=== PATIENT | female | born 1930 | race Caucasian/White ===

== ENCOUNTER 2017-04-19 06:32 | Inpatient (IN) ==
[2017-04-19 08:40] LABS: Basophils # 0.1 10*3/uL (0.0-0.2); Basophils % 0.5 % (0.0-0.8); Eosinophils # 0.2 10*3/uL (0.0-0.87); Eosinophils % 2.1 % (0.00-10.9); Hematocrit 29.6 VOL% (35.7-47.0); Hemoglobin 10.1 GM/DL (12.0-16.0); Immature Granulocytes % 0.4 %; Immature Granulocytes Absolute 0.04 #; Lymphocytes # 2.7 10*3/uL (1.4-4.0); Lymphocytes % 27.8 % (21.3-54.2); Mean Corpuscular HGB Conc 34.1 GM/DL (32-36); Mean Corpuscular Hemoglobin 32 PG (27-34); Mean Corpuscular Volume 94.9 FL (87-102); Mean Platelet Volume 9.3 FL (9.6-12.0); Monocytes # 0.7 10*3/uL (0.11-0.8); Monocytes % 7.5 % (1.7-12.7); Neutrophils # 5.9 10*3/uL (1.4-7.4); Neutrophils % 61.7 % (38.7-73.9); Platelet Count 259 T/CUMM (130-400); Red Blood Count 3.12 MC/CUMM (3.8-5.5); Red Cell Distribution Width 12.4 % (9.3-17.3); White Blood Count 9.6 T/CUMM (4-12)
[2017-04-19] MEDS ORDERED: ceFAZolin 1,000 MG VIAL ONE (08:52)
[2017-04-19] MEDS ORDERED: SODIUM CHLORIDE 0.9% 100 ML IV ONE (08:52)
[2017-04-19 09:16] LABS: Osmolality,Calculated 282.5 MOS/KG (273-304); Potassium 5.8 MMOL/L (3.5-5.1)
--- NOTE | 2017-04-19 09:16 | General Surg History&Physical ---
Assessment and Plan (1) Breast cancer Status: Acute Assessment and plan: Impression: Multicentric breast cancer Plan: Proceed with left mastectomy and sentinel lymph node biopsy and axillary dissection if needed today. Dr. White has cleared her from a pulmonary standpoint. He will follow after the surgery. Current Visit: Yes History of Present Illness Chief complaint: Breast cancer History of present illness: Ms. Taylor is a 86 year old female with multicentric left breast cancer who is scheduled for left mastectomy with sentinel lymph node biopsy and possible axillary dissection. Her case was canceled because of pneumonia. She is undergone antibiotics administered by Dr. White and he has optimized her and is okay with proceeding with surgery. Other than weakness she has no complaints. She states that from a pulmonary standpoint she feels better. Home Medications Medication Instructions Recorded Confirmed Type Aspirin EC Tab 81 mg PO DAILY tablet 04/10/15 04/19/17 Rx Pyridoxine Tab [Vitamin B6 Tab] 100 mg PO DAILY tablet 04/10/15 04/19/17 Rx Theophylline ER Tab 150 mg PO DAILY tablet 04/10/15 04/19/17 Rx Amoxicillin/Potassium Clav [Amox 1 each PO DIRECTED 03/15/17 04/19/17 History Tr-K Clv 500-125 mg Tab] Azithromycin Tab [Zithromax Tab] 250 mg PO DIRECTED 03/15/17 04/19/17 History Cholecalciferol [Vitamin D3] 1,000 unit PO DIRECTED 03/15/17 04/19/17 History Ciprofloxacin Tab [Cipro Tab] 500 mg PO DIRECTED 03/15/17 04/19/17 History Clindamycin Cap [Cleocin Cap] 300 mg PO DIRECTED 03/15/17 04/19/17 History Doxycycline Hyclate 100 mg PO DIRECTED 03/15/17 04/19/17 History Esomeprazole Magnesium [Nexium] 40 mg PO DAILY 03/15/17 04/19/17 History Levofloxacin Tab [Levaquin Tab] 500 mg PO DIRECTED 03/15/17 04/17/17 History Levothyroxine Tab [Synthroid Tab] 0.1 mcg PO DAILY@0700 03/15/17 04/19/17 History Sulfameth/Trimeth 800-160 Tab 1 tablet PO DIRECTED 03/15/17 04/19/17 History [Bactrim DS Tab] Isoniazid 300 mg PO DAILY 04/17/17 04/19/17 History Rifampin Cap [Rifadin Cap] 300 mg PO DAILY 04/17/17 04/19/17 History Allergies Allergy/AdvReac Type Severity Reaction Status Date / Time codeine Allergy Mild Vomiting Verified 04/19/17 08:29 Medical,Surgical,& Family Hx - Medical History Cardio: No history of: Cardiac Dysrhythmia, Cerebrovascular Disease, CHF, Hypertension, AR, Valvular Heart Disease Neurology: History of: Migraine No history of: Seizures HEENT: History of: Eye Problem Endocrine: History of: Thyroid Disorder Comment Only: Endocrine Problems (medication) Rheumatology: No history of;: Fibromyalgia, Gout Respiratory: History of: Bronchitis (Bronchiectasis-On Maintance Antibiotics), COPD, Pneumonia, 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) Genitourinary: No history of: Kidney Stones Gastrointestinal: History of: GERD (medication) Musculoskeletal: History of: Back/Neck Problems, Musculoskeletal Problems ( right shoulder surgery) No history of: Herniated Disk Hematology: History of: Anemia No history of: Blood Transfusion Reaction Reproductive: History of: Breast Cancer Other: No history of: Anesthesia Reactions - Surgical History Cardiac Surgeries: Patient Denies: Cardiac Catheterization Thoracic Surgeries: Patient denies;: Organ Transplant HEENT Surgeries: Surgical HX of: Eye Surgery (cataract surgery) Patient denies: Thyroid Surgery Abdominal Surgeries: Patient denies: Abdominal Surgery, Colonoscopy Reproductive Surgeries: Surgical HX of;: Breast Surgery (right breast biopsy two years ago;04/18/17 Sched for Lt Radical Mastectomy), Hysterectomy - Family History Family History: Reports;: Family Cancer (sister-breast), Family Diabetes (sister ), Family Heart Disease (brother) - Social History Smoking Status: Never smoker Frequency of Alcohol Use: None Type of Drug Use: None Exam - Constitutional General appearance: no acute distress - Neck Neck exam: Present: normal inspection - Respiratory Respiratory exam: Present: clear to auscultation bilaterally - Cardiovascular Cardiovascular exam: Present: RRR - Breasts Breasts: other (No mass appreciated, no lymphadenopathy appreciated) - Extremities Exam Extremities exam: Present: normal inspection - Neurological Exam Neurological exam: Present: alert, oriented X3 Speech: Present: normal - Skin Skin exam: Present: normal color Results - Labs CBC & BMP: 04/19/17 08:26 Lab Results: I have reviewed the past 24 hour labs
[2017-04-19] MEDS ORDERED: DIAZEPAM 5 MG TABLET PO ONE (09:21)
[2017-04-19] MEDS ORDERED: PANTOPRAZOLE 40 MG TABLET PO ONE ×2 (09:21→10:21)
[2017-04-19] MEDS ORDERED: ALBUTEROL 2.5 MG/3 ML NEB RESP TX ONE (09:21)
[2017-04-19] MEDS ORDERED: LACTATED RINGERS 1,000 ML IV SCH (09:30)
--- NOTE | 2017-04-19 10:20 | Nuclear Medicine Report ---
Nuclear medicine sentinel node injection Indication: Breast cancer Findings: The patient was injected with 500 uCi of 99 M technetium sulfur colloid ultrafiltered in 4 divided doses around the left nipple. There is faint increased activity in the left axilla at 30 minutes with focal increasing activity in this area at 2 hours. No other areas of the increased activity were identified on the examination. Impression: Left axillary ben uptake as described above. PROCEDURE INTERPRETED AT [facility] DEPARTMENT OF RADIOLOGY Final Report Signed by: Dr. Mihir Agosto
[2017-04-19] MEDS ORDERED: DIAZEPAM 5 MG TABLET ONE (10:21)
[2017-04-19] MEDS ORDERED: ISOSULFAN BLUE 5 ML VIAL SUBCUT ONE (11:31)
[2017-04-19] MEDS ORDERED: NEOSTIGMINE 10 MG/10 ML VIAL ONE (11:55)
[2017-04-19] MEDS ORDERED: PROPOFOL 200 MG/20 ML VIAL IV ONE (11:55)
[2017-04-19] MEDS ORDERED: KETOROLAC 30 MG/1 ML VIAL ONE (11:55)
[2017-04-19] MEDS ORDERED: ONDANSETRON 4 MG/2 ML VIAL ONE (11:55)
[2017-04-19] MEDS ORDERED: PHENYLEPHRINE 50 MG/5 ML VIAL ONE (11:55)
[2017-04-19] MEDS ORDERED: DEXAMETHASONE 10 MG/1 ML VIAL ONE (11:55)
[2017-04-19] MEDS ORDERED: GLYCOPYRROLATE 0.4 MG/2 ML VIAL ONE (11:55)
[2017-04-19] MEDS ORDERED: LIDOCAINE 1% 5 ML VIAL ONE (11:55)
[2017-04-19] MEDS ORDERED: ROCURONIUM 100 MG/10 ML VIAL IV ONE (11:55)
[2017-04-19] MEDS ORDERED: MEPERIDINE 25 MG/1 ML VIAL IV PRN (13:26)
[2017-04-19] MEDS ORDERED: ACETAMINOPHEN 325 MG TABLET PO PRN (13:26)
[2017-04-19] MEDS ORDERED: ONDANSETRON 4 MG/2 ML VIAL IV PRN ×2 (13:26→13:54)
[2017-04-19] MEDS ORDERED: BISACODYL 5 MG TABLET PO PRN (13:26)
--- NOTE | 2017-04-19 13:42 | Anesthesia Post-Op ---
Anesthesia Post OP - Post Ansesthetic Evaluation Patient seen in post op: Yes Resp: within normal limits CV: within normal limits Mental: within normal limits Temp: within normal limits [id number]: within normal limits Nausea and Vomiting: within normal limits Pain: within normal limits
--- NOTE | 2017-04-19 13:43 | Operative Note ---
Date of procedure: 04/19/17 Pre-op diagnosis: Multicentric left breast cancer Post-op diagnosis: same Procedure: Procedure performed: #1 left simple mastectomy #2 sentinel lymph node biopsy #3 mapping of sentinel lymph nodes Procedure in detail: After informed consent was obtained, patient was taken operating suite and laid supine on the operating table. After general anesthesia was induced the left chest breast and axilla were prepped and draped in usual sterile fashion. After procedural pause, 2 cc of blue dye were administered in the sub-dermal layer at the nipple areolar complex and a mastectomy incision was made. A tunneled to the left axilla. Using the [employer] Live counter identified 2 nodes. Both were stained blue. Nodes were excised. They were sent to pathology for frozen sectioning. The residual counts were negligible of the left axilla. Next the superior and inferior flaps were created. The left breast was then dissected off the chest wall from medial to lateral. The entire left breast was removed and sent to pathology. Wounds were thoroughly irrigated and suctioned. Hemostasis obtained with spot electrocautery. The 2 lymph nodes were negative on frozen section. Tisseel was then applied to the axillary wound. 10 [place] drains were then placed in the wound bed and brought out through separate incisions and secured in place with 2-0 silk suture. The deep dermal layer was reapproximated using 2 -0 Vicryl suture. Incision closed with ever. Skin flaps looked healthy and viable. There is no areas of duskiness. There is excellent hemostasis. Sterile dressings applied. The patient was extubated and taken recovery room in stable condition. All lap and needle counts correct in the case. Anesthesia: SANTOS Surgeon / Physician: Yong Juarez Cabinet Builder: José Miguel Carney Estimated blood loss: other (Less than 100 cc) Specimens: other (Left breast, sentinel lymph node 2) Condition: stable Disposition: PACU Results - Labs CBC & BMP: 04/19/17 08:26 04/19/17 08:26 Discharge Plan - Discharge Medications No Action Aspirin EC Tab 81 mg PO DAILY tablet Theophylline ER Tab 150 mg PO DAILY tablet Pyridoxine Tab [Vitamin B6 Tab] 100 mg PO DAILY tablet Sulfameth/Trimeth 800-160 Tab [Bactrim DS Tab] 1 tablet PO DIRECTED Azithromycin Tab [Zithromax Tab] 250 mg PO DIRECTED Clindamycin Cap [Cleocin Cap] 300 mg PO DIRECTED Ciprofloxacin Tab [Cipro Tab] 500 mg PO DIRECTED Amoxicillin/Potassium Clav [Amox Tr-K Clv 500-125 mg Tab] 1 each PO DIRECTED Doxycycline Hyclate 100 mg PO DIRECTED Esomeprazole Magnesium [Nexium] 40 mg PO DAILY Cholecalciferol [Vitamin D3] 1,000 unit PO DIRECTED Levothyroxine Tab [Synthroid Tab] 0.1 mcg PO DAILY@0700 Levofloxacin Tab [Levaquin Tab] 500 mg PO DIRECTED Rifampin Cap [Rifadin Cap] 300 mg PO DAILY Isoniazid 300 mg PO DAILY - Follow Up or Referral - Forms/Instructions
[2017-04-19] MEDS ORDERED: SEVOFLURANE 1 UNIT/15 MINUTE INH ONE (13:44)
[2017-04-19] MEDS ORDERED: fentaNYL 100 MCG/2 ML VIAL ONE (13:45)
[2017-04-19] MEDS ORDERED: ACETAMINOPHEN 1,000 MG/100 ML VIAL IV ONE (13:45)
[2017-04-19] MEDS ORDERED: CHOLECALCIFEROL 1,000 UNIT TABLET PO PRN (14:00)
[2017-04-19] MEDS: HYDROmorphone 2 MG/1 ML VIAL IV PRN ×4 (14:00→14:15)
[2017-04-19] MEDS: LACTATED RINGERS 1,000 ML IV SCH (14:59)
[2017-04-19] MEDS: ISONIAZID 300 MG TABLET PO SCH (16:11)
[2017-04-19] MEDS: THEOPHYLLINE ER 300 MG TABLET PO SCH (16:11)
[2017-04-19] MEDS: PYRIDOXINE 100 MG TABLET PO SCH (16:11)
[2017-04-19] MEDS: ASPIRIN EC 81 MG TABLET PO SCH (16:11)
[2017-04-19] MEDS: diphenhydrAMINE 25 MG/10 ML UDCUP PO PRN (16:48)
[2017-04-19] MEDS: MEPERIDINE 50 MG TABLET PO PRN (18:24)
--- NOTE | 2017-04-19 18:53 | Pulmonology Progress Note ---
Pulmonary - PN: Subj Interval history: This 86-year-old white female who is postop breast surgery. She is seen along with her normal daughter who is a retired nurse. Patient's doing well. She ate a good supper without any problems. She has no nausea. Her breathing has done surprisingly well. Past history. Chronic bronchiectasis with chronic sputum production. Recent E. coli pneumonia. 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 Asthma. Long history of iron deficiency. Hypothyroidism. Recent diagnosis of breast cancer. Physical exam. Vital signs. See below General. No distress. Comfortable. Psychiatric. Oriented 3 Neurologic. Cranial nerves are intact. Long track motor functions intact Chest. Clear no wheezing. Heart. Regular. No gallop Abdomen. Nontender. Positive bowel sounds Lower extremities. Nothing to suggest deep venous thrombophlebitis Neck. Symmetrical. No meningismus. Face. Symmetrical. No edema of the lips or tongue. The remainder the physical exam is noncontributory. Plan. 1. As per Dr. Ashraf 2. Home medicines have been continued. 3. Inhalation therapy 4 times a day and as needed Exam (Progress Note) - Constitutional Vitals: Period Temp Pulse Resp BP Sys/Craft Pulse Ox Last 24 Hr 97.5 F-98.5 F 60-99 12-24 106-155/39-61 93-100 Results - Labs CBC & BMP: 04/19/17 08:26 04/19/17 08:26
[2017-04-19] MEDS: ALBUTEROL/IPRATROPIUM 3 ML NEB RESP TX SCH (19:45)
[2017-04-19] MEDS: ceFAZolin 2,000 MG in PREMIX 1 EACH IV SCH (21:03)
[2017-04-20] MEDS: ALBUTEROL/IPRATROPIUM 3 ML NEB RESP TX SCH ×4 (01:35→20:12)
[2017-04-20] MEDS: LACTATED RINGERS 1,000 ML IV SCH ×2 (02:14→20:56)
[2017-04-20 05:41] LABS: Basophils % 0.3 % (0.0-0.8); Eosinophils % 0.3 % (0.00-10.9); Immature Granulocytes % 0.5 %; Immature Granulocytes Absolute 0.06 #; Lymphocytes # 2.4 10*3/uL (1.4-4.0); Mean Corpuscular HGB Conc 33.3 GM/DL (32-36); Mean Corpuscular Hemoglobin 32 PG (27-34); Mean Corpuscular Volume 96.4 FL (87-102); Mean Platelet Volume 9.6 FL (9.6-12.0); Monocytes % 8.6 % (1.7-12.7); Neutrophils % 69.3 % (38.7-73.9); Platelet Count 221 T/CUMM (130-400); Red Cell Distribution Width 12.4 % (9.3-17.3); White Blood Count 11.6 T/CUMM (4-12)
[2017-04-20] MEDS: ceFAZolin 2,000 MG in PREMIX 1 EACH IV SCH (05:49)
[2017-04-20 06:11] LABS: Calcium 8.2 MG/DL (8.5-10.1); Osmolality,Calculated 279.7 MOS/KG (273-304); Potassium 5.8 MMOL/L (3.5-5.1); Red Blood Count 2.49 MC/CUMM (3.8-5.5)
--- NOTE | 2017-04-20 08:01 | XRay Report ---
Portable chest Date: 04/20/2017 Clinical history: Pneumonia Comparison: 03/21/2017 Technique: Portable AP sitting chest Findings: The heart is borderline in size. Interval left chest surgery with surgical drain. Reduced parenchymal findings at the lung bases. Skinfolds limit the exam. Stable mediastinum and osseous structures. Impression: COPD with chronic scarring. Interval left breast surgery with surgical drain. Reduced atelectasis/infiltration at the lung bases with underlying chronic scarring/bronchiectasis. PROCEDURE INTERPRETED AT [facility] DEPARTMENT OF RADIOLOGY Final Report Signed by: Dr. Candy Calderon
[2017-04-20] MEDS: LEVOTHYROXINE 100 MCG TABLET PO SCH (08:59)
[2017-04-20] MEDS: PANTOPRAZOLE 40 MG TABLET PO SCH (08:59)
[2017-04-20] MEDS: ASPIRIN EC 81 MG TABLET PO SCH (08:59)
[2017-04-20] MEDS: THEOPHYLLINE ER 300 MG TABLET PO SCH (09:00)
[2017-04-20] MEDS: PYRIDOXINE 100 MG TABLET PO SCH (09:01)
[2017-04-20] MEDS: ISONIAZID 300 MG TABLET PO SCH (09:01)
[2017-04-20] MEDS ORDERED: SODIUM CHLORIDE 0.9% 250 ML IV PRN (10:32)
--- NOTE | 2017-04-20 10:59 | Pulmonology Progress Note ---
Pulmonary - PN: Subj Interval history: This 86-year-old white female who is postop breast surgery. She is seen along with her normal daughter who is a retired nurse. Patient's doing well. She ate a good supper without any problems. She has no nausea. Her breathing has done surprisingly well. Past history. Chronic bronchiectasis with chronic sputum production. Recent E. coli pneumonia. 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 Asthma. Long history of iron deficiency. Hypothyroidism. Recent diagnosis of breast cancer. 04/20/2017. Patient's H&H is dropped 8.0/24.0. I will transfuse her with 1 unit of packed red blood cells today. Her potassium is running at 3.8 and there appears to be no reason. Her creatinine is a little higher than usual at 1.70 with a BUN of 29. I agree with fluids. Patient is a little week and has not colic recovered from her surgery today. On physical exam she appears to be fine. She was seen along with her daughter and along with Shilo Serrano nurse practitioner. Physical exam. Vital signs. See below General. No distress. Comfortable. Psychiatric. Oriented 3 Neurologic. Cranial nerves are intact. Long track motor functions intact Chest. Clear no wheezing. Heart. Regular. No gallop Abdomen. Nontender. Positive bowel sounds Lower extremities. Nothing to suggest deep venous thrombophlebitis Neck. Symmetrical. No meningismus. Face. Symmetrical. No edema of the lips or tongue. The remainder the physical exam is noncontributory. Plan. 04/19/[address] Ashraf 2. Home medicines have been continued. 3. Inhalation therapy 4 times a day and as needed 04/20/2017. 1. Transfuse 1 unit of blood 2. Follow-up lab. Exam (Progress Note) - Constitutional Vitals: Period Temp Pulse Resp BP Sys/Craft Pulse Ox Last 24 Hr 96.7 F-99.0 F 60-99 12-24 106-155/39-61 93-100 Results - Labs CBC & BMP: 04/20/17 04:55 04/20/17 04:55
[2017-04-20] MEDS: MEPERIDINE 50 MG TABLET PO PRN ×2 (11:27→19:43)
--- NOTE | 2017-04-20 12:29 | Event Note ---
Afebrile vital signs stable. Patient is doing very well. YOSELIN drains have minimal serosanguineous fluid. The wound examined and there is no hematoma or bleeding. The skin flaps look good with no necrosis and the incision appears to be healing well there is no evidence of erythema. We will continue supportive care. Dr. White is following. Will get PT and OT to evaluate and treat. Discussed range of motion exercises with her. She should be ready for discharge when okay with Dr. White.
[2017-04-20 20:49] LABS: Hematocrit 26.3 VOL% (35.7-47.0)
[2017-04-20] MEDS: diphenhydrAMINE 25 MG/10 ML UDCUP PO PRN (23:43)
[2017-04-21] MEDS: ALBUTEROL/IPRATROPIUM 3 ML NEB RESP TX SCH ×4 (01:30→20:11)
[2017-04-21 05:18] LABS: Basophils % 0.3 % (0.0-0.8); Eosinophils # 0.2 10*3/uL (0.0-0.87); Eosinophils % 2.4 % (0.00-10.9); Hematocrit 26.6 VOL% (35.7-47.0); Immature Granulocytes % 0.6 %; Immature Granulocytes Absolute 0.05 #; Lymphocytes # 2.7 10*3/uL (1.4-4.0); Lymphocytes % 29.7 % (21.3-54.2); Mean Corpuscular HGB Conc 33.8 GM/DL (32-36); Mean Corpuscular Hemoglobin 32 PG (27-34); Mean Corpuscular Volume 95.3 FL (87-102); Mean Platelet Volume 9.4 FL (9.6-12.0); Monocytes # 0.8 10*3/uL (0.11-0.8); Monocytes % 9.4 % (1.7-12.7); Neutrophils # 5.2 10*3/uL (1.4-7.4); Neutrophils % 57.6 % (38.7-73.9); Platelet Count 192 T/CUMM (130-400); Red Blood Count 2.79 MC/CUMM (3.8-5.5); Red Cell Distribution Width 13.5 % (9.3-17.3)
[2017-04-21 05:54] LABS: Calcium 8.4 MG/DL (8.5-10.1); Osmolality,Calculated 283.3 MOS/KG (273-304); Potassium 5.8 MMOL/L (3.5-5.1)
[2017-04-21] MEDS: LEVOTHYROXINE 100 MCG TABLET PO SCH (07:23)
--- NOTE | 2017-04-21 09:13 | Event Note ---
Status post mastectomy. Afebrile vital signs stable. H&H stable. Mastectomy site looks great. YOSELIN drains with moderate serosanguineous output. There is no hematoma or bleeding. Flaps look good and the incision appears to be healing well with no sign of infection. She had some preoperative deconditioning related to persistent pneumonia. Physical therapy has been consulted. Also consulted occupational therapy to teach range of motion exercises. Plan: From a surgical standpoint she is ready for discharge once okay with PT OT and Dr. Carreon. We will continue her YOSELIN drains in each YOSELIN drain care. She will follow-up with me approximately 1 week after discharge for drain removal.
--- NOTE | 2017-04-21 09:19 | Physician Query Form ---
CLICK EDIT DOCUMENT TO SELECT QUERY ANSWER --> OK --> SIGN Ruchi Miller RN, CCDS Certified Clinical Linotyper W) [phone] (f) [phone] [email or web address] PROVIDERS: Make your selection(s) from the choices in EACH section by typing an "x" and enter comments in the comment section. Please use your independent medical judgment in providing your response. This request does not imply that any particular answer is desired or expected. CLINICAL INDICATORS: (Providers should not edit this section) The medical record indicates that the patient had a left mastectomy, "H&H is dropped 8.0/24.0" and patient was given one unit of blood. Estimated blood loss: other (Less than 100 cc) Based on the above, could you clarify which of the following conditions you are evaluating, treating, and/or monitoring? ( ) Blood loss anemia ( ) acute ( ) chronic ( ) acute on chronic ( ) Acute blood loss anemia on baseline chronic anemia ( ) Acute blood loss anemia as a complication of a procedure ( ) Iron deficiency anemia not associated with blood loss ( ) Dilutional anemia due to IV fluids ( ) Anemia due to chemotherapy ( ) Anemia due to neoplastic disease ( ) Anemia due to chronic kidney disease ( ) Pernicious anemia ( ) Aplastic anemia ( ) Hemolytic anemia ( ) immune ( ) non-immune - please specify cause: ( ) Anemia due to other condition, please specify: ( ) Clinically unable to determine COMMENTS: PLEASE ALSO DOCUMENT RESPONSE IN PROGRESS NOTES AND/OR DISCHARGE SUMMARY Use of terms such as suspected, likely, or probable (associated with a specific diagnosis that is being evaluated, monitored, or treated as if it exists) are acceptable and can be restated in the discharge summary if not ruled out. MTDD
[2017-04-21] MEDS: ASPIRIN EC 81 MG TABLET PO SCH (09:25)
[2017-04-21] MEDS: PYRIDOXINE 100 MG TABLET PO SCH (09:25)
[2017-04-21] MEDS: PANTOPRAZOLE 40 MG TABLET PO SCH (09:25)
[2017-04-21] MEDS: THEOPHYLLINE ER 300 MG TABLET PO SCH (09:25)
[2017-04-21] MEDS: ISONIAZID 300 MG TABLET PO SCH (09:25)
[2017-04-21] MEDS: LACTATED RINGERS 1,000 ML IV SCH ×2 (09:48→21:56)
--- NOTE | 2017-04-21 10:58 | Pulmonology Progress Note ---
Pulmonary - PN: Subj Interval history: This 86-year-old white female who is postop breast surgery. She is seen along with her normal daughter who is a retired nurse. Patient's doing well. She ate a good supper without any problems. She has no nausea. Her breathing has done surprisingly well. Past history. Chronic bronchiectasis with chronic sputum production. Recent E. coli pneumonia. 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 Asthma. Long history of iron deficiency. Hypothyroidism. Recent diagnosis of breast cancer. 04/20/2017. Patient's H&H is dropped 8.0/24.0. I will transfuse her with 1 unit of packed red blood cells today. Her potassium is running at 3.8 and there appears to be no reason. Her creatinine is a little higher than usual at 1.70 with a BUN of 29. I agree with fluids. Patient is a little week and has not colic recovered from her surgery today. On physical exam she appears to be fine. She was seen along with her daughter and along with Shilo Serrano nurse practitioner 04/21/2017. Patient was seen today along with her daughter who is a retired nurse and along with Shilo Serrano nurse practitioner. Patient says she is too weak to get out bed by herself. Yesterday we consulted physical therapy and occupational therapy. Early in the morning the patient had a hematocrit of 24 and we transfused her to a hematocrit of 29. I was told the hematocrit of 24 was too low to be seen by the physical therapy or occupational therapy. Also I was told it was too low for her to be put up in a chair by the nursing staff. I have consulted social service to help with placement of this patient. She had bilateral pneumonia prior to this admission and went through appropriate length of time for recovery she was still somewhat weak before her surgery and it may be that the anesthesia slow to wear off of her. I think she could benefit from rehab or from a swing bed. She is from [place].. Her potassium does tend to run a little high at 5.8. I have no idea why. Will check CPK just to make sure muscle injury is not playing a part. Her creatinine is fallen from 1.70-1.30 BUN is 23. I suspect potassium will follow. This admission the patient had breast surgery for breast cancer, frozen section lymph nodes were negative. Final path is pending. Down the road the patient will need an oncology consultation. Physical exam. Vital signs. See below General. No distress. Comfortable. Complains of being weak and unable to get from her bed to the bathroom Psychiatric. Oriented 3 Neurologic. Cranial nerves are intact. Long track motor functions intact Chest. Clear no wheezing. Heart. Regular. No gallop Abdomen. Nontender. Positive bowel sounds Lower extremities. Nothing to suggest deep venous thrombophlebitis Neck. Symmetrical. No meningismus. Face. Symmetrical. No edema of the lips or tongue. The remainder the physical exam is noncontributory. Plan. 04/19/[address] Ashraf 2. Home medicines have been continued. 3. Inhalation therapy 4 times a day and as needed 04/20/2017. 1. Transfuse 1 unit of blood 2. Follow-up lab. 04/21/2017. 1. Check CPK 2. Follow-up on BMP. Potassium is been 5.8. Creatinine is dropped back to his usual level suspect potassium will follow 3. Physical therapy and Occupational Therapy consults are pending 4. Hope the patient can get up in the chair today 5. Consult forensic social worker. This patient is a candidate for rehab and also a candidate for swing bed. She lives in [place]. 6. Today's note above Exam (Progress Note) - Constitutional Vitals: Period Temp Pulse Resp BP Sys/Craft Pulse Ox Last 24 Hr 97.7 F-99.2 F 88-119 17-20 126-158/54-66 92-99 Results - Labs CBC & BMP: 04/21/17 04:47 04/21/17 04:47
--- NOTE | 2017-04-21 12:35 | Physician Query Form ---
CLICK EDIT DOCUMENT TO SELECT QUERY ANSWER --> OK --> SIGN Ruchi Miller RN, CCDS Certified Clinical Agile Test Lead W) [phone] (f) [phone] [email or web address] PROVIDERS: Make your selection(s) from the choices in EACH section by typing an "x" and enter comments in the comment section. Please use your independent medical judgment in providing your response. This request does not imply that any particular answer is desired or expected. CLINICAL INDICATORS: (Providers should not edit this section) The medical record indicates that the patient had a left mastectomy, "H&H is dropped 8.0/24.0" and patient was given one unit of blood. Estimated blood loss: other (Less than 100 cc) Based on the above, could you clarify which of the following conditions you are evaluating, treating, and/or monitoring? ( ) Blood loss anemia ( ) acute ( ) chronic ( ) acute on chronic ( ) Acute blood loss anemia on baseline chronic anemia ( ) Acute blood loss anemia as a complication of a procedure ( ) Iron deficiency anemia not associated with blood loss ( ) Dilutional anemia due to IV fluids ( ) Anemia due to chemotherapy ( x) Anemia due to neoplastic disease ( ) Anemia due to chronic kidney disease ( ) Pernicious anemia ( ) Aplastic anemia ( ) Hemolytic anemia ( ) immune ( ) non-immune - please specify cause: ( ) Anemia due to other condition, please specify: ( ) Clinically unable to determine COMMENTS: PLEASE ALSO DOCUMENT RESPONSE IN PROGRESS NOTES AND/OR DISCHARGE SUMMARY Use of terms such as suspected, likely, or probable (associated with a specific diagnosis that is being evaluated, monitored, or treated as if it exists) are acceptable and can be restated in the discharge summary if not ruled out. MTDD
[2017-04-21] MEDS: MEPERIDINE 50 MG TABLET PO PRN (14:29)
[2017-04-22] MEDS: diphenhydrAMINE 25 MG/10 ML UDCUP PO PRN (01:11)
[2017-04-22] MEDS: ALBUTEROL/IPRATROPIUM 3 ML NEB RESP TX SCH ×4 (01:19→19:43)
[2017-04-22 02:54] LABS: Calcium 8.5 MG/DL (8.5-10.1); Magnesium 1.8 MG/DL (1.8-2.4); Osmolality,Calculated 280.4 MOS/KG (273-304); Potassium 5.3 MMOL/L (3.5-5.1)
[2017-04-22] MEDS: LEVOTHYROXINE 100 MCG TABLET PO SCH (06:19)
--- NOTE | 2017-04-22 09:10 | Event Note ---
04/22/2017. Patient status post left mastectomy and incision looks clean and dry with no swelling or hematoma formation. YOSELIN drainage is slowly decreasing at this time. She has some discomfort but that is probably related from the pulling of the YOSELIN drain since her hanging freely down. Generally she looks good vital sign sequeira her hematocrit was a little bit low postop what we will check that tomorrow.
--- NOTE | 2017-04-22 09:28 | Pulmonology Progress Note ---
Pulmonary - PN: Subj Interval history: This 86-year-old lady came in cancer surgery. She had pneumonia a month or so ago. She remains fairly weak is only able to walk in the room. 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 I wonder if this might need to be changed at this time. She has not had any side effects from the medications. Defer to Dr. Carreon on that one. Exam (Progress Note) - Constitutional Vitals: Period Temp Pulse Resp BP Sys/Craft Pulse Ox Last 24 Hr 97.1 F-98.3 F 75-102 16-20 122-152/60-67 94-100 Exam: She is alert oriented vital signs are normal. Pupils react to light. Throat is clear. Neck supple no bruits. Chest reveals some rhonchi in the bases. Heart normal rate and rhythm no murmurs. Left breast is bandaged. Abdomen soft nontender no masses. Extremities no clubbing cyanosis or edema. Calves nontender. Results - Labs CBC & BMP: 04/21/17 04:47 04/22/17 01:21 Lab Results: I have reviewed the past 24 hour labs Assessment and Plan (1) Bronchiectasis Status: Acute Assessment and plan: Patient has a remote history of Mycobacterium avium. Has bronchiectasis. I would suggest long-term treatment with Zithromax 3 days a week. Currently she is on INH and rifampin. Current Visit: Yes (2) Breast cancer Status: Acute Assessment and plan: Status post left mastectomy. Gradually increasing activities. Current Visit: Yes Specialty Discharge - Follow Up or Referrals Follow up with: Yong Juarez MD [Physician] -
[2017-04-22] MEDS: THEOPHYLLINE ER 300 MG TABLET PO SCH (10:36)
[2017-04-22] MEDS: PANTOPRAZOLE 40 MG TABLET PO SCH (10:36)
[2017-04-22] MEDS: ISONIAZID 300 MG TABLET PO SCH (10:37)
[2017-04-22] MEDS: PYRIDOXINE 100 MG TABLET PO SCH (10:37)
[2017-04-22] MEDS: ASPIRIN EC 81 MG TABLET PO SCH (10:38)
[2017-04-22] MEDS: LACTATED RINGERS 1,000 ML IV SCH ×2 (10:38→23:10)
[2017-04-22] MEDS: MEPERIDINE 50 MG TABLET PO PRN (23:07)
[2017-04-23] MEDS: ALBUTEROL/IPRATROPIUM 3 ML NEB RESP TX SCH ×4 (00:09→18:58)
[2017-04-23 03:19] LABS: Basophils % 0.4 % (0.0-0.8); Eosinophils # 0.3 10*3/uL (0.0-0.87); Eosinophils % 2.9 % (0.00-10.9); Hematocrit 27.7 VOL% (35.7-47.0); Hemoglobin 9.2 GM/DL (12.0-16.0); Immature Granulocytes % 0.6 %; Immature Granulocytes Absolute 0.05 #; Lymphocytes # 2.7 10*3/uL (1.4-4.0); Lymphocytes % 30.1 % (21.3-54.2); Mean Corpuscular HGB Conc 33.2 GM/DL (32-36); Mean Corpuscular Hemoglobin 32 PG (27-34); Mean Corpuscular Volume 95.8 FL (87-102); Mean Platelet Volume 9.1 FL (9.6-12.0); Monocytes # 0.8 10*3/uL (0.11-0.8); Monocytes % 8.9 % (1.7-12.7); Neutrophils # 5.2 10*3/uL (1.4-7.4); Neutrophils % 57.1 % (38.7-73.9); Platelet Count 196 T/CUMM (130-400); Red Blood Count 2.89 MC/CUMM (3.8-5.5); Red Cell Distribution Width 12.3 % (9.3-17.3); White Blood Count 9.1 T/CUMM (4-12)
[2017-04-23 03:44] LABS: Calcium 8.6 MG/DL (8.5-10.1); Magnesium 1.6 MG/DL (1.8-2.4); Osmolality,Calculated 282.3 MOS/KG (273-304); Potassium 5.1 MMOL/L (3.5-5.1)
[2017-04-23] MEDS: LEVOTHYROXINE 100 MCG TABLET PO SCH (06:12)
--- NOTE | 2017-04-23 08:51 | Pulmonology Progress Note ---
Pulmonary - PN: Subj Interval history: This 86-year-old lady came in for left breast cancer surgery. She had pneumonia a month or so ago. She remains fairly weak is only able to walk in the room. 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 I wonder if this might need to be changed at this time. She has not had any side effects from the medications. Defer to Dr. Carreon on that one. 04/23/2017 patient having some trouble sleeping. She says she does not sleep very well at home. Does not tolerate sleeping pills such as Ambien. She has done okay with Valium or Tranxene in the past. Will give her some low-dose Tranxene. No other new complaints. Exam (Progress Note) - Constitutional Vitals: Period Temp Pulse Resp BP Sys/Craft Pulse Ox Last 24 Hr 97.1 F-98.9 F 82-103 17-20 110-150/56-71 95-100 Exam: She is alert oriented vital signs are normal. Pupils react to light. Throat is clear. Neck supple no bruits. Chest reveals some rhonchi in the bases. Heart normal rate and rhythm no murmurs. Left breast is bandaged. Abdomen soft nontender no masses. Extremities no clubbing cyanosis or edema. Calves nontender. Results - Labs CBC & BMP: 04/23/17 02:04 04/23/17 02:04 Lab Results: I have reviewed the past 24 hour labs Assessment and Plan (1) Bronchiectasis Status: Acute Assessment and plan: Patient has a remote history of Mycobacterium avium. Has bronchiectasis. I would suggest long-term treatment with Zithromax 3 days a week. Currently she is on INH and rifampin. 04/23/2017 does not appear to be having any acute exacerbation of her bronchiectasis. Current Visit: Yes (2) Breast cancer Status: Acute Assessment and plan: Status post left mastectomy. Gradually increasing activities. 04/23/2017 status post left mastectomy. Not having much pain. Current Visit: Yes Specialty Discharge - Follow Up or Referrals Follow up with: Yong Juarez MD [Physician] -
[2017-04-23] MEDS ORDERED: MAGNESIUM SULF RIDER 2 GM in PREMIX 1 EACH IV PRN (09:40)
[2017-04-23] MEDS: PYRIDOXINE 100 MG TABLET PO SCH (11:03)
[2017-04-23] MEDS: PANTOPRAZOLE 40 MG TABLET PO SCH (11:03)
[2017-04-23] MEDS: THEOPHYLLINE ER 300 MG TABLET PO SCH (11:03)
[2017-04-23] MEDS: ASPIRIN EC 81 MG TABLET PO SCH (11:04)
[2017-04-23] MEDS: ISONIAZID 300 MG TABLET PO SCH (11:04)
[2017-04-23] MEDS: LACTATED RINGERS 1,000 ML IV SCH (14:41)
[2017-04-23] MEDS ORDERED: CLORAZEPATE 3.75 MG TABLET PO SCH (21:00)
[2017-04-24] MEDS: ALBUTEROL/IPRATROPIUM 3 ML NEB RESP TX SCH ×3 (00:09→13:10)
[2017-04-24 05:24] LABS: Calcium 8.7 MG/DL (8.5-10.1); Magnesium 2.2 MG/DL (1.8-2.4); Osmolality,Calculated 280.3 MOS/KG (273-304); Potassium 5.7 MMOL/L (3.5-5.1)
[2017-04-24] MEDS: LACTATED RINGERS 1,000 ML IV SCH ×2 (05:57→14:10)
[2017-04-24] MEDS: LEVOTHYROXINE 100 MCG TABLET PO SCH (06:03)
[2017-04-24] MEDS: THEOPHYLLINE ER 300 MG TABLET PO SCH (09:41)
[2017-04-24] MEDS: PANTOPRAZOLE 40 MG TABLET PO SCH (09:41)
[2017-04-24] MEDS: PYRIDOXINE 100 MG TABLET PO SCH (09:41)
[2017-04-24] MEDS: ASPIRIN EC 81 MG TABLET PO SCH (09:41)
[2017-04-24] MEDS: ISONIAZID 300 MG TABLET PO SCH (09:41)
[2017-04-24] MEDS ORDERED: RIFAMPIN 300 MG CAPSULE PO SCH (10:00)
--- NOTE | 2017-04-24 10:23 | Pulmonology Progress Note ---
Pulmonary - PN: Subj Interval history: Shilo Serrano, [facility]-, acting as scribe for Dr. Agustin Carreon Mrs. Taylro is an 86-year-old white female who underwent a left simple mastectomy on 04/19/[address] Juarez. She also had a sentinel lymph node biopsy and mapping of sentinel lymph nodes done at that time. We have been following along and medical management. Other past history includes: Chronic bronchiectasis with chronic sputum production. Recent E. coli pneumonia. 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 Asthma. Long history of iron deficiency. Hypothyroidism. Recent diagnosis of breast cancer. 04/20/2017. Patient's H&H is dropped 8.0/24.0. I will transfuse her with 1 unit of packed red blood cells today. Her potassium is running at 3.8 and there appears to be no reason. Her creatinine is a little higher than usual at 1.70 with a BUN of 29. I agree with fluids. Patient is a little week and has not colic recovered from her surgery today. On physical exam she appears to be fine. She was seen along with her daughter and along with Shilo Serrano nurse practitioner 04/21/2017. Patient was seen today along with her daughter who is a retired nurse and along with Shilo Serrano nurse practitioner. Patient says she is too weak to get out bed by herself. Yesterday we consulted physical therapy and occupational therapy. Early in the morning the patient had a hematocrit of 24 and we transfused her to a hematocrit of 29. I was told the hematocrit of 24 was too low to be seen by the physical therapy or occupational therapy. Also I was told it was too low for her to be put up in a chair by the nursing staff. I have consulted social service to help with placement of this patient. She had bilateral pneumonia prior to this admission and went through appropriate length of time for recovery she was still somewhat weak before her surgery and it may be that the anesthesia slow to wear off of her. I think she could benefit from rehab or from a swing bed. She is from [place].. Her potassium does tend to run a little high at 5.8. I have no idea why. Will check CPK just to make sure muscle injury is not playing a part. Her creatinine is fallen from 1.70-1.30 BUN is 23. I suspect potassium will follow. This admission the patient had breast surgery for breast cancer, frozen section lymph nodes were negative. Final path is pending. Down the road the patient will need an oncology consultation. 04/24/2017. The patient was seen today along with her daughter. Today the patient obviously feels better. She has been able to ambulate more easily. She is getting stronger. She feels that she will be able to go home as opposed to swing bed. Her daughter who is a retired nurse will be staying with her at her home for a while. They feel that they will be able to manage while she is there. We agree. She asked about when to restart her rifampin and we told her that this can be done today. She has bronchiectasis and has cyclic antibiotics. We suggested restarting Bactrim when she is discharged. She will follow-up with Dr. Ashraf per his recommendations. She already has a follow- up appointment scheduled with Dr. Carreon in June and she can keep this appointment. She will call our office sooner if needed. Medications have been reviewed. We have restarted her rifampin. Labs have been reviewed. Creatinine 1.00, BUN 16, sodium 141, potassium 5.7, magnesium 2.2 Exam (Progress Note) - Constitutional Vitals: Period Temp Pulse Resp BP Sys/Craft Pulse Ox Last 24 Hr 97.4 F-98.1 F 78-100 14-20 134-159/67-82 94-99 Exam: Chest is fairly clear Heart no gallop Abdomen is nontender and nondistended; bowel sounds are positive 4 Extremities with nothing to suggest acute deep venous femoral phlebitis Psychiatric oriented 3 Neurologic long-term motor function is intact Plan: The patient is stable from a medical standpoint for discharge whenever Dr. Ashraf feels it is appropriate. She can keep her June appointment that is already scheduled with Dr. Carreon. She could be seen sooner if needed and will call in the meantime. She is to restart her rifampin today. She will start Bactrim when she is discharged. In our opinion, she will no longer need swing bed placement at discharge. Results - Labs CBC & BMP: 04/23/17 02:04 04/24/17 03:55 Specialty Discharge - Follow Up or Referrals Follow up with: Yong Juarez MD [Physician] -
[2017-04-24 11:26] VITALS: BP 137/61
--- NOTE | 2017-04-24 12:24 | Discharge Summary ---
Hospital Course - Hospital Course Hospital Course: A 6-year-old white female with multicentric left breast cancer scheduled for left mastectomy with sentinel lymph node biopsy and possible axillary resection. Her case was canceled because of chronic bronchiectasis and recent E. coli and Mycobacterium avium pneumonia and she had been under Dr. Carreon's care. She was finally cleared for surgery and she was admitted on 04/19/2017 and taken to the operating room where Dr. Juarez performed a left simple mastectomy with sentinel lymph node biopsy and mapping of her sentinel lymph nodes. Dr. Carreon from pulmonary followed the patient during her hospital stay. As far as surgically, the patient has done excellent. Her incision looks good and there is no signs of bleeding. Her JPs will be taken out before her discharge. Patient was very weak due to her surgery and previous pneumonia and initially it was thought she would be transferred to swing bed. Today patient feels stronger and her daughter is a retired nurse and they both feel she can go home with home physical therapy. Pulmonary is restarting her rifampin and her Bactrim upon discharge. She has a follow-up already scheduled with Dr. White in June and she is to keep this appointment. She will follow-up with Dr. Juarez in his office in 2 weeks. She is also been instructed to keep Dean wraps compression at all times. Complete discharge instructions were given. Care coordination, chart review, and completed discharge paperwork took approximately 40 minutes. - Time spent with patient Time with patient DS: Greater than 30 minutes Specialty Discharge - Follow Up or Referrals Follow up with: Yong Juarez MD [Physician] - Agustin Carreon MD [Primary Care Provider] - (KEEP APPOINTMENT SCHEDULED IN JUNE. CALL IF NEEDED BEFORE.) Discharge Plan - Discharge Data Disposition: Home Health Service Condition at Discharge: Stable Discharge Diet: advance to your usual diet Activity: as per physical therapy Hygiene: may shower Driving: other (No driving if taking pain medications) Contact your physician if you experience:: fever over 101, Redness or swelling, Nausea/Vomiting, Shortness of breath Wound / Dressing Care Instructions: Okay to shower daily with mild soap and water, pat dry, dry ABD pad to incision, use Dean wraps for compression at all times - Discharge Medications New Meperidine Tab [Demerol Tab] 50 mg PO Q4H PRN #30 tablet PRN Reason: Pain Severe (8-10) Esomeprazole Magnesium [Nexium] 40 mg PO DAILY #30 capsule Continue Aspirin EC Tab 81 mg PO DAILY tablet Theophylline ER Tab 150 mg PO DAILY tablet Pyridoxine Tab [Vitamin B6 Tab] 100 mg PO DAILY tablet Sulfameth/Trimeth 800-160 Tab [Bactrim DS Tab] 1 tablet PO BID PRN PRN Reason: ROTATE WEEKLY Cholecalciferol [Vitamin D3] 1,000 unit PO DAILY Levothyroxine Tab [Synthroid Tab] 0.1 mcg PO DAILY@0700 Rifampin Cap [Rifadin Cap] 300 mg PO DAILY Isoniazid 300 mg PO DAILY Discontinued Azithromycin Tab [Zithromax Tab] 250 mg PO DAILY PRN PRN Reason: ROTATE WEEKLY Clindamycin Cap [Cleocin Cap] 300 mg PO BID PRN PRN Reason: ROTATE Q WEEKLY Ciprofloxacin Tab [Cipro Tab] 500 mg PO BID PRN PRN Reason: ROTATE Q WEEK Amoxicillin/Potassium Clav [Amox Tr-K Clv 500-125 mg Tab] 1 each PO BID PRN PRN Reason: ROTATE WEEKLY Doxycycline Hyclate 100 mg PO BID PRN PRN Reason: ROTATE Q WEEK Esomeprazole Magnesium [Nexium] 40 mg PO DAILY Levofloxacin Tab [Levaquin Tab] 500 mg PO DAILY PRN PRN Reason: ROTATE WEEKLY - Follow Up or Referral Follow Up: Agustin Carreon MD [Primary Care Provider] - (KEEP APPOINTMENT SCHEDULED IN JUNE. CALL IF NEEDED BEFORE.) Yong Juarez MD [Physician] - 2 Weeks - Forms/Instructions Instructions: Mastectomy (DC) Exam - Constitutional Vitals: Period Temp Pulse Resp BP Sys/Craft Pulse Ox Last 24 Hr 97.4 F-98.1 F 78-100 14-20 134-159/61-82 94-99 Discharge Results Labs on day of discharge: Labs from last 24 hours 04/24/17 03:55 Sodium 141 Potassium 5.7 H Chloride 110 H Carbon Dioxide 25 Anion Gap 11.7 BUN 16 Creatinine 1.00 GFR Calculation 48 BUN/Creatinine Ratio 16.00 Glucose 89 Calculated Osmolality 280.3 Calcium 8.7 Magnesium 2.2 DS: Provider Date of admission: 04/19/17 13:26 Primary care physician: Agustin Carreon MD Attending physician on admission: Yong Juarez MD Consults: 04/19/17 13:26 Consult to Physician [CONS] Routine Comment: seeing pt for pneumonia Consulting Provider: Agustin Carreon Consulting Provider Notified: Yes When should Consulting Provider be notified: Now Person Notified: ollie matos Date Notified: 04/19/17 Time Notified: 15:03 04/20/17 10:32 Consult to Physical Therapy [CONS] Routine Reason for Physical Therapy: Evaluate and Treat 04/20/17 10:35 Consult to Case Mgmt/Social Srvs [CONS] Routine Reason for Case Mgmt/Social Srvs: Home Health Consult Comment: YOSELIN drain care 04/20/17 12:35 OT [Consult to Occupational Therapy] [CONS] Routine Reason for Occupational Therapy: Evaluate and Treat Consult Comment: postop left mastectomy ex 04/21/17 10:12 Consult to Case Mgmt/Social Srvs [CONS] Routine Reason for Case Mgmt/Social Srvs: Discharge Planning Swingbed/SNF/Long-Term Consult Comment: [facility] Discharging clinician: DAMIAN Francis Expected date of discharge: 04/24/17
--- NOTE | 2017-04-24 17:17 | Pathology Report from [facility] ---
[facility] [place] [id number] PATIENT NAME : Cindy Taylor ORDERING DR : Yong Juarez MD CLINICAL HX: Multicentric left breast cancer POST-OP DX: Same SPECIMEN INFO: #1 [place] node #1 #2 [place] node #2 #3 Left breast GROSS DESCRIPTION: #1 CINDY TAYLOR received fresh is a 2.5 x 2.0 cm fatty fragment with a 0.5 x 0.4 cm lymph node submitted in FS1 for frozen.#2 SENTINEL NODE, CINDY TAYLOR received fresh is a 2.5 x 1.8 cm adipose fragment with a 0.7 x 0.3 cm lymph node submitted in FS2#3 CINDY TAYLOR received in formalin is a 30.5 x 14.0 x 3.0 cm left breast mastectomy with a 16.0 x 4.3 cm pink-gonzalez skin ellipse. At 11:00/UIQ is a 2.6 x 0.6 cm firm pink-white mass with a metal clip. The mass grossly comes to within 0.5 cm of the superior/superficial margin. A second 0.4 x 0.4 cm mass is present at 8:00 in the lower mid quadrant and grossly comes to within 0.8 cm of the inferior/superficial margin. A third 0.6 x 0.5 cm mass is noted within the lower outer quadrant at 4-5:00 and grossly comes to within 1.5 cm of the inferior/superficial margin. Sections : 3A nipple and skin, 3B and 3C first mass and superior/superficial margin, 3D second mass and inferior/superficial, 3E third mass and inferior/superficial margin. Note: Time in formalin is 1300 8/9. Time out of formalin is 1800 8/ 10. Fixation requirement met. DIAGNOSIS FOR CINDY TAYLOR: #1-#3 LEFT BREAST, MASTECTOMY WITH SENTINEL NODES ( Intact, 30.5 x 14 x 3 cm): HISTOLOGIC TYPE: Invasive ductal carcinoma. TUMOR SITE: LIQ, LMQ. LOQ (three lesions). TUMOR SIZE: 2.6, 0.4, 0.6 mm. (three lesions) KARINA GRADE II (tubules = 2, pleomorphism = 2, mitoses = 7 MF/ 10 HPF) TUMOR MARGINS: Margins uninvolved by carcinoma, with nearest (superior superficial) margin = 0.5 cm. TUMOR FOCALITY: Multiple foci (3 foci), measuring 4 to 26 mm. DCIS: Present, cribiform, intermediate nuclear grade, w/ o necrosis present within and surrounding tumor, 10mm in diameter, comprising 30% of tumor (EIC = present, >25%). DCIS MARGINS: Margins uninvolved by DCIS, with nearest (superior superficial) margin = 5 mm. LYMPHOVASCULAR INVASION: Not identified.. LYMPH NODES: Total lymph nodes present (sentinel & non sentinel): 2; Total sentinel nodes: 2. All lymph nodes negative for tumor (0/2). AJCC PATHOLOGIC STAGE IIA [pT2pN0(sn)]. COLLECTED DATE: 04/19/2017 [facility] REPORT DATE: 04/24/2017 ELECTRONICALLY SIGNED BY: Tobias Mckinley M.D. 04/24/2017 - 12:35:08 ABBIE
== END 2017-04-24 13:55 | disposition home health service (06) | DRG 581 ==
LOC: N.OR 06:32 → N.SDSINP 06:37 → EDSTATUS 10:30 → N.SDSINP 13:26 → N.3E 14:54
PROVIDERS: ADMIT Surgery; ATTEND Surgery

== ENCOUNTER 2018-04-09 13:13 | Inpatient (IN) ==
[2018-04-09] MEDS ORDERED: ALBUTEROL/IPRATROPIUM 3 ML NEB RESP TX PRN (13:15)
[2018-04-09] MEDS: ALBUTEROL/IPRATROPIUM 3 ML NEB RESP TX SCH ×2 (14:45→18:30)
[2018-04-09 14:54] LABS: Basophils % 0.1 % (0.0-0.8); Eosinophils % 0.2 % (0.00-10.9); Hematocrit 23.8 VOL% (35.7-47.0); Immature Granulocytes % 0.7 %; Lymphocytes # 2.2 10*3/uL (1.4-4.0); Lymphocytes % 15.3 % (21.3-54.2); Mean Corpuscular HGB Conc 33.6 GM/DL (32-36); Mean Corpuscular Hemoglobin 31 PG (27-34); Mean Corpuscular Volume 93.3 FL (87-102); Mean Platelet Volume 8.8 FL (9.6-12.0); Monocytes # 1.5 10*3/uL (0.11-0.8); Monocytes % 10.7 % (1.7-12.7); Neutrophils # 10.4 10*3/uL (1.4-7.4); Platelet Count 300 T/CUMM (130-400); Red Blood Count 2.55 MC/CUMM (3.8-5.5); Red Cell Distribution Width 13.1 % (9.3-17.3); White Blood Count 14.2 T/CUMM (4-12)
[2018-04-09 15:25] LABS: % Iron Saturation 8.6 % (18-50); Free T4 (Free Thyroxine) 1.25 NG/DL (0.76-1.46)
[2018-04-09 15:31] LABS: Albumin 2.9 G/DL (3.4-5.0); Bilirubin,Total 0.5 MG/DL (0.2-1.0); Calcium 8.6 MG/DL (8.5-10.1); Osmolality,Calculated 266.4 MOS/KG (273-304); Thyroid Stimulating Hormone 1.19 uIU/ml (0.358-3.74); Total Protein 7.6 G/DL (6.4-8.3)
[2018-04-09] MEDS: DEXTROSE 5% NACL 0.45% 1,000 ML IV SCH (16:25)
[2018-04-09] MEDS: cefTAZidime 1,000 MG in SYRINGE 1 EACH IV SCH (16:31)
[2018-04-09] MEDS: methylPREDNISolone SOD SUC 40 MG/1 ML VIAL IV SCH (16:31)
[2018-04-09] MEDS ORDERED: CHOLECALCIFEROL 1,000 UNIT TABLET PO ONE (17:13)
[2018-04-09] MEDS: THEOPHYLLINE ER 300 MG TABLET PO SCH (18:00)
[2018-04-09] MEDS: MEROPENEM 1,000 MG in SYRINGE 1 EACH IV SCH (18:01)
[2018-04-09] MEDS ORDERED: ACETAMINOPHEN 325 MG TABLET PO PRN ×2 (18:14→18:24)
[2018-04-09] MEDS ORDERED: METHOCARBAMOL 500 MG TABLET PO PRN (18:27)
[2018-04-09] MEDS: DORNASE ALFA 2.5 MG/2.5 ML VIAL RESP TX SCH (18:30)
[2018-04-09 19:32] LABS: Apearance,Urine CLEAR (Clear); Bacteria,Urine Occasional /HPF (Few); Bilirubin,Urine Negative (Negative); Blood, Urine Small mg/dL (Negative); Glucose,Urine (UA) Negative (Negative); Ketones,Urine Negative (Negative); Mucus,Urine Occasional /LPF (Occasional); Nitrite,Urine Negative (Negative); Protein,Urine Negative; RBC,Urine 1 /HPF (0-4); Urine Color Yellow (Yellow); Urine Specific Gravity 1.003 (1.001-1.035); Urine Urobilinogen < 2.0 EU/DL (0.2-1.0)
[2018-04-09] MEDS: DIAZEPAM 5 MG TABLET PO SCH (20:32)
[2018-04-10] MEDS: cefTAZidime 1,000 MG in SYRINGE 1 EACH IV SCH ×3 (00:24→20:52)
[2018-04-10] MEDS: MEROPENEM 1,000 MG in SYRINGE 1 EACH IV SCH ×2 (00:30→18:35)
[2018-04-10] MEDS: methylPREDNISolone SOD SUC 40 MG/1 ML VIAL IV SCH ×2 (02:07→14:14)
[2018-04-10] MEDS: LEVOTHYROXINE 100 MCG TABLET PO SCH (06:07)
[2018-04-10] MEDS: ALBUTEROL/IPRATROPIUM 3 ML NEB RESP TX SCH ×4 (07:35→18:30)
[2018-04-10 07:40] LABS: Basophils % 0.2 % (0.0-0.8); Hematocrit 25.4 VOL% (35.7-47.0); Hemoglobin 8.5 GM/DL (12.0-16.0); Immature Granulocytes % 1.1 %; Immature Granulocytes Absolute 0.13 #; Lymphocytes # 1.8 10*3/uL (1.4-4.0); Mean Corpuscular HGB Conc 33.5 GM/DL (32-36); Mean Corpuscular Hemoglobin 31 PG (27-34); Mean Corpuscular Volume 92.4 FL (87-102); Mean Platelet Volume 8.7 FL (9.6-12.0); Monocytes # 0.6 10*3/uL (0.11-0.8); Monocytes % 5.1 % (1.7-12.7); Neutrophils # 9.7 10*3/uL (1.4-7.4); Neutrophils % 78.6 % (38.7-73.9); Platelet Count 332 T/CUMM (130-400); Red Blood Count 2.75 MC/CUMM (3.8-5.5); Red Cell Distribution Width 13.1 % (9.3-17.3); White Blood Count 12.3 T/CUMM (4-12)
[2018-04-10] MEDS: DORNASE ALFA 2.5 MG/2.5 ML VIAL RESP TX SCH ×2 (07:40→18:30)
[2018-04-10 08:11] LABS: Calcium 8.8 MG/DL (8.5-10.1); Osmolality,Calculated 280.5 MOS/KG (273-304)
[2018-04-10] MEDS: AZITHROMYCIN 250 MG TABLET PO SCH (08:57)
[2018-04-10] MEDS: THEOPHYLLINE ER 300 MG TABLET PO SCH (08:57)
[2018-04-10] MEDS: RIFAMPIN 300 MG CAPSULE PO SCH (08:57)
[2018-04-10] MEDS: PYRIDOXINE 100 MG TABLET PO SCH (08:57)
[2018-04-10] MEDS: MULTIVITAMIN (BEROCCA) TABLET PO SCH (08:57)
[2018-04-10] MEDS: FERROUS SULFATE 325 MG TABLET PO SCH (08:58)
[2018-04-10] MEDS: ASPIRIN EC 81 MG TABLET PO SCH (08:58)
[2018-04-10] MEDS: DEXTROSE 5% NACL 0.45% 1,000 ML IV SCH (13:45)
[2018-04-10] MEDS: DIAZEPAM 5 MG TABLET PO SCH (20:53)
[2018-04-11] MEDS: methylPREDNISolone SOD SUC 40 MG/1 ML VIAL IV SCH ×2 (02:11→15:05)
[2018-04-11] MEDS: MEROPENEM 1,000 MG in SYRINGE 1 EACH IV SCH ×2 (05:09→18:34)
[2018-04-11] MEDS: LEVOTHYROXINE 100 MCG TABLET PO SCH (06:20)
[2018-04-11] MEDS: DEXTROSE 5% NACL 0.45% 1,000 ML IV SCH (06:21)
[2018-04-11 06:30] LABS: Basophils % 0.2 % (0.0-0.8); Eosinophils % 0.2 % (0.00-10.9); Hematocrit 23.3 VOL% (35.7-47.0); Hemoglobin 7.5 GM/DL (12.0-16.0); Immature Granulocytes % 1.1 %; Immature Granulocytes Absolute 0.12 #; Lymphocytes # 1.2 10*3/uL (1.4-4.0); Lymphocytes % 11.6 % (21.3-54.2); Mean Corpuscular HGB Conc 32.2 GM/DL (32-36); Mean Corpuscular Hemoglobin 31 PG (27-34); Mean Corpuscular Volume 95.1 FL (87-102); Mean Platelet Volume 8.3 FL (9.6-12.0); Monocytes # 0.5 10*3/uL (0.11-0.8); Monocytes % 5.1 % (1.7-12.7); Neutrophils # 8.6 10*3/uL (1.4-7.4); Neutrophils % 81.8 % (38.7-73.9); Platelet Count 265 T/CUMM (130-400); Red Blood Count 2.45 MC/CUMM (3.8-5.5); Red Cell Distribution Width 13.1 % (9.3-17.3); White Blood Count 10.5 T/CUMM (4-12)
[2018-04-11 07:00] LABS: Calcium 8.2 MG/DL (8.5-10.1); Osmolality,Calculated 285.3 MOS/KG (273-304); Potassium 5.2 MMOL/L (3.5-5.1)
[2018-04-11] MEDS: DORNASE ALFA 2.5 MG/2.5 ML VIAL RESP TX SCH ×2 (07:20→19:34)
[2018-04-11] MEDS: ALBUTEROL/IPRATROPIUM 3 ML NEB RESP TX SCH ×3 (07:20→23:47)
[2018-04-11] MEDS: FERROUS SULFATE 325 MG TABLET PO SCH (10:46)
[2018-04-11] MEDS: MULTIVITAMIN (BEROCCA) TABLET PO SCH (10:46)
[2018-04-11] MEDS: THEOPHYLLINE ER 300 MG TABLET PO SCH (10:47)
[2018-04-11] MEDS: RIFAMPIN 300 MG CAPSULE PO SCH (10:47)
[2018-04-11] MEDS: cefTAZidime 1,000 MG in SYRINGE 1 EACH IV SCH ×2 (10:50→22:07)
[2018-04-11] MEDS: PYRIDOXINE 100 MG TABLET PO SCH (10:53)
[2018-04-11] MEDS: ASPIRIN EC 81 MG TABLET PO SCH (10:53)
[2018-04-11] MEDS: AZITHROMYCIN 250 MG TABLET PO SCH (10:58)
[2018-04-11] MEDS: DIAZEPAM 5 MG TABLET PO SCH (22:07)
[2018-04-12] MEDS: DEXTROSE 5% NACL 0.45% 1,000 ML IV SCH (01:50)
[2018-04-12] MEDS: methylPREDNISolone SOD SUC 40 MG/1 ML VIAL IV SCH ×2 (01:51→17:44)
[2018-04-12] MEDS: MEROPENEM 1,000 MG in SYRINGE 1 EACH IV SCH ×2 (06:15→20:04)
[2018-04-12] MEDS: ALBUTEROL/IPRATROPIUM 3 ML NEB RESP TX SCH ×5 (06:38→23:51)
[2018-04-12] MEDS: DORNASE ALFA 2.5 MG/2.5 ML VIAL RESP TX SCH ×2 (07:03→19:36)
[2018-04-12 07:22] LABS: Hematocrit 22.1 VOL% (35.7-47.0); Hemoglobin 7.1 GM/DL (12.0-16.0); Mean Corpuscular HGB Conc 32.1 GM/DL (32-36); Mean Corpuscular Hemoglobin 31 PG (27-34); Mean Corpuscular Volume 94.8 FL (87-102); Mean Platelet Volume 8.2 FL (9.6-12.0); Neutrophils % 76.7 % (38.7-73.9); Platelet Count 274 T/CUMM (130-400); Red Blood Count 2.33 MC/CUMM (3.8-5.5)
[2018-04-12 07:23] LABS: Basophils % 0.4 % (0.0-0.8); Eosinophils % 0.3 % (0.00-10.9); Immature Granulocytes % 1.1 %; Lymphocytes # 1.4 10*3/uL (1.4-4.0); Lymphocytes % 15.4 % (21.3-54.2); Monocytes # 0.6 10*3/uL (0.11-0.8); Monocytes % 6.1 % (1.7-12.7); Neutrophils # 6.9 10*3/uL (1.4-7.4)
[2018-04-12 07:27] LABS: PT Patient Result 10.1 SECS; Partial Thromboplastin Time 29.5 SECS (0-40)
[2018-04-12] MEDS ORDERED: BENZONATATE 100 MG CAPSULE PO ONE (08:30)
[2018-04-12] MEDS ORDERED: MEPERIDINE 50 MG/1 ML VIAL IM ONE (08:30)
[2018-04-12] MEDS ORDERED: diphenhydrAMINE 50 MG/1 ML VIAL IM ONE (08:30)
[2018-04-12] MEDS: LEVOTHYROXINE 100 MCG TABLET PO SCH (08:52)
[2018-04-12] MEDS ORDERED: LIDOCAINE 2% 20 ML VIAL RESP TX ONE (09:00)
[2018-04-12] MEDS ORDERED: LIDOCAINE 2% VISCOUS 100 ML BOTTLE SWISH/SPIT ONE (09:00)
[2018-04-12] MEDS ORDERED: LIDOCAINE 1% 20 ML VIAL MISC INJ ONE (09:00)
[2018-04-12] MEDS: cefTAZidime 1,000 MG in SYRINGE 1 EACH IV SCH ×2 (15:17→21:19)
[2018-04-12] MEDS: FERROUS SULFATE 325 MG TABLET PO SCH (17:26)
[2018-04-12] MEDS: PYRIDOXINE 100 MG TABLET PO SCH ×2 (17:27→17:51)
[2018-04-12] MEDS: MULTIVITAMIN (BEROCCA) TABLET PO SCH (17:27)
[2018-04-12] MEDS: AZITHROMYCIN 250 MG TABLET PO SCH (17:46)
[2018-04-12] MEDS: ISONIAZID 300 MG TABLET PO SCH (17:46)
[2018-04-12] MEDS: THEOPHYLLINE ER 300 MG TABLET PO SCH (17:46)
[2018-04-12] MEDS: RIFAMPIN 300 MG CAPSULE PO SCH (17:47)
[2018-04-12] MEDS: ASPIRIN EC 81 MG TABLET PO SCH (17:47)
[2018-04-12] MEDS: FERRIC GLUCONATE COMPLEX 125 MG in SODIUM CHLORIDE 0.9% 100 ML IV SCH (17:52)
[2018-04-12] MEDS: DIAZEPAM 5 MG TABLET PO SCH (21:20)
[2018-04-13] MEDS: methylPREDNISolone SOD SUC 40 MG/1 ML VIAL IV SCH ×2 (02:27→14:53)
[2018-04-13] MEDS: DEXTROSE 5% NACL 0.45% 1,000 ML IV SCH (04:00)
[2018-04-13] MEDS: LEVOTHYROXINE 100 MCG TABLET PO SCH (06:41)
[2018-04-13] MEDS: MEROPENEM 1,000 MG in SYRINGE 1 EACH IV SCH ×2 (06:41→18:46)
[2018-04-13] MEDS: ALBUTEROL/IPRATROPIUM 3 ML NEB RESP TX SCH ×3 (07:45→23:28)
[2018-04-13] MEDS: DORNASE ALFA 2.5 MG/2.5 ML VIAL RESP TX SCH ×2 (07:47→23:28)
[2018-04-13] MEDS: cefTAZidime 1,000 MG in SYRINGE 1 EACH IV SCH ×2 (09:54→21:16)
[2018-04-13] MEDS: ISONIAZID 300 MG TABLET PO SCH (09:55)
[2018-04-13] MEDS: THEOPHYLLINE ER 300 MG TABLET PO SCH (09:55)
[2018-04-13] MEDS: RIFAMPIN 300 MG CAPSULE PO SCH (09:55)
[2018-04-13] MEDS: AZITHROMYCIN 250 MG TABLET PO SCH (09:55)
[2018-04-13] MEDS: ASPIRIN EC 81 MG TABLET PO SCH (09:55)
[2018-04-13] MEDS: FERROUS SULFATE 325 MG TABLET PO SCH (09:56)
[2018-04-13] MEDS: MULTIVITAMIN (BEROCCA) TABLET PO SCH (09:56)
[2018-04-13] MEDS: PYRIDOXINE 100 MG TABLET PO SCH (09:56)
[2018-04-13] MEDS: FERRIC GLUCONATE COMPLEX 125 MG in SODIUM CHLORIDE 0.9% 100 ML IV SCH (10:00)
[2018-04-13] MEDS: PANTOPRAZOLE 40 MG TABLET PO PRN (10:03)
[2018-04-13] MEDS: DIAZEPAM 5 MG TABLET PO SCH (21:16)
[2018-04-14] MEDS: methylPREDNISolone SOD SUC 40 MG/1 ML VIAL IV SCH ×2 (02:04→14:31)
[2018-04-14] MEDS: MEROPENEM 1,000 MG in SYRINGE 1 EACH IV SCH ×2 (06:21→17:54)
[2018-04-14] MEDS: DORNASE ALFA 2.5 MG/2.5 ML VIAL RESP TX SCH ×2 (07:46→23:38)
[2018-04-14] MEDS: ALBUTEROL/IPRATROPIUM 3 ML NEB RESP TX SCH ×3 (07:46→23:37)
[2018-04-14] MEDS: LEVOTHYROXINE 100 MCG TABLET PO SCH (08:44)
[2018-04-14] MEDS: cefTAZidime 1,000 MG in SYRINGE 1 EACH IV SCH ×2 (09:47→21:26)
[2018-04-14] MEDS: ISONIAZID 300 MG TABLET PO SCH (09:48)
[2018-04-14] MEDS: THEOPHYLLINE ER 300 MG TABLET PO SCH (09:48)
[2018-04-14] MEDS: FERROUS SULFATE 325 MG TABLET PO SCH (09:48)
[2018-04-14] MEDS: AZITHROMYCIN 250 MG TABLET PO SCH (09:48)
[2018-04-14] MEDS: ASPIRIN EC 81 MG TABLET PO SCH (09:48)
[2018-04-14] MEDS: MULTIVITAMIN (BEROCCA) TABLET PO SCH (09:48)
[2018-04-14] MEDS: RIFAMPIN 300 MG CAPSULE PO SCH (09:49)
[2018-04-14] MEDS: PYRIDOXINE 100 MG TABLET PO SCH (09:49)
[2018-04-14] MEDS: PANTOPRAZOLE 40 MG TABLET PO PRN (09:52)
[2018-04-14] MEDS: FERRIC GLUCONATE COMPLEX 125 MG in SODIUM CHLORIDE 0.9% 100 ML IV SCH (09:53)
[2018-04-14] MEDS: ALUMINUM/MAGNES/SIMETH MAX STR 30 ML UDCUP PO SCH ×2 (17:54→21:27)
[2018-04-14] MEDS: DEXTROSE 5% NACL 0.45% 1,000 ML IV SCH (20:17)
[2018-04-14] MEDS: PANTOPRAZOLE 40 MG TABLET PO SCH (21:27)
[2018-04-14] MEDS: DIAZEPAM 5 MG TABLET PO SCH (21:27)
[2018-04-15] MEDS: methylPREDNISolone SOD SUC 40 MG/1 ML VIAL IV SCH ×2 (02:37→13:54)
[2018-04-15] MEDS: DEXTROSE 5% NACL 0.45% 1,000 ML IV SCH (02:37)
[2018-04-15] MEDS: MEROPENEM 1,000 MG in SYRINGE 1 EACH IV SCH ×2 (05:09→19:10)
[2018-04-15] MEDS: LEVOTHYROXINE 100 MCG TABLET PO SCH (07:10)
[2018-04-15] MEDS: ALBUTEROL/IPRATROPIUM 3 ML NEB RESP TX SCH ×3 (07:54→23:24)
[2018-04-15] MEDS: DORNASE ALFA 2.5 MG/2.5 ML VIAL RESP TX SCH ×2 (07:55→23:25)
[2018-04-15 09:14] LABS: Hemoglobin 7.7 GM/DL (12.0-16.0)
[2018-04-15] MEDS: PANTOPRAZOLE 40 MG TABLET PO SCH ×2 (09:41→20:59)
[2018-04-15] MEDS: FERROUS SULFATE 325 MG TABLET PO SCH (09:41)
[2018-04-15] MEDS: PYRIDOXINE 100 MG TABLET PO SCH (09:41)
[2018-04-15] MEDS: ISONIAZID 300 MG TABLET PO SCH (09:41)
[2018-04-15] MEDS: ASPIRIN EC 81 MG TABLET PO SCH (09:41)
[2018-04-15] MEDS: RIFAMPIN 300 MG CAPSULE PO SCH (09:41)
[2018-04-15] MEDS: cefTAZidime 1,000 MG in SYRINGE 1 EACH IV SCH ×2 (09:41→20:58)
[2018-04-15] MEDS: AZITHROMYCIN 250 MG TABLET PO SCH (09:41)
[2018-04-15] MEDS: THEOPHYLLINE ER 300 MG TABLET PO SCH (09:42)
[2018-04-15] MEDS: MULTIVITAMIN (BEROCCA) TABLET PO SCH (09:42)
[2018-04-15] MEDS: FERRIC GLUCONATE COMPLEX 125 MG in SODIUM CHLORIDE 0.9% 100 ML IV SCH (09:47)
[2018-04-15] MEDS: ALUMINUM/MAGNES/SIMETH MAX STR 30 ML UDCUP PO SCH ×2 (18:43→18:44)
[2018-04-15] MEDS: DIAZEPAM 5 MG TABLET PO SCH (20:59)
[2018-04-16] MEDS: ALUMINUM/MAGNES/SIMETH MAX STR 30 ML UDCUP PO SCH ×5 (02:09→20:52)
[2018-04-16] MEDS: methylPREDNISolone SOD SUC 40 MG/1 ML VIAL IV SCH ×2 (02:17→18:19)
[2018-04-16] MEDS: MEROPENEM 1,000 MG in SYRINGE 1 EACH IV SCH ×2 (06:11→20:10)
[2018-04-16] MEDS: LEVOTHYROXINE 100 MCG TABLET PO SCH (06:12)
[2018-04-16] MEDS: ALBUTEROL/IPRATROPIUM 3 ML NEB RESP TX SCH ×3 (07:10→23:07)
[2018-04-16 07:13] LABS: Basophils % 0.4 % (0.0-0.8); Eosinophils # 0.1 10*3/uL (0.0-0.87); Eosinophils % 0.5 % (0.00-10.9); Hematocrit 22.4 VOL% (35.7-47.0); Hemoglobin 7.3 GM/DL (12.0-16.0); Immature Granulocytes % 4.3 %; Lymphocytes # 1.7 10*3/uL (1.4-4.0); Lymphocytes % 18.6 % (21.3-54.2); Mean Corpuscular HGB Conc 32.6 GM/DL (32-36); Mean Corpuscular Hemoglobin 31 PG (27-34); Mean Corpuscular Volume 93.7 FL (87-102); Mean Platelet Volume 8.2 FL (9.6-12.0); Monocytes # 0.4 10*3/uL (0.11-0.8); Monocytes % 3.7 % (1.7-12.7); Neutrophils # 6.8 10*3/uL (1.4-7.4); Neutrophils % 72.5 % (38.7-73.9); Platelet Count 327 T/CUMM (130-400); Red Blood Count 2.39 MC/CUMM (3.8-5.5); Red Cell Distribution Width 13.2 % (9.3-17.3); White Blood Count 9.4 T/CUMM (4-12)
[2018-04-16] MEDS: DORNASE ALFA 2.5 MG/2.5 ML VIAL RESP TX SCH ×2 (07:15→19:16)
[2018-04-16 07:43] LABS: Calcium 8.6 MG/DL (8.5-10.1); Osmolality,Calculated 281.4 MOS/KG (273-304); Potassium 4.9 MMOL/L (3.5-5.1)
[2018-04-16] MEDS: PANTOPRAZOLE 40 MG TABLET PO SCH ×2 (09:00→20:52)
[2018-04-16] MEDS: PYRIDOXINE 100 MG TABLET PO SCH (11:05)
[2018-04-16] MEDS: ISONIAZID 300 MG TABLET PO SCH (11:05)
[2018-04-16] MEDS: ASPIRIN EC 81 MG TABLET PO SCH (11:06)
[2018-04-16] MEDS: RIFAMPIN 300 MG CAPSULE PO SCH (11:06)
[2018-04-16] MEDS: AZITHROMYCIN 250 MG TABLET PO SCH (11:06)
[2018-04-16] MEDS: FERROUS SULFATE 325 MG TABLET PO SCH (11:06)
[2018-04-16] MEDS: MULTIVITAMIN (BEROCCA) TABLET PO SCH (11:06)
[2018-04-16] MEDS: THEOPHYLLINE ER 300 MG TABLET PO SCH (11:06)
[2018-04-16] MEDS: cefTAZidime 1,000 MG in SYRINGE 1 EACH IV SCH ×2 (11:07→20:52)
[2018-04-16] MEDS: FERRIC GLUCONATE COMPLEX 125 MG in SODIUM CHLORIDE 0.9% 100 ML IV SCH (11:08)
[2018-04-16] MEDS: DIAZEPAM 5 MG TABLET PO SCH (20:52)
[2018-04-17] MEDS: methylPREDNISolone SOD SUC 40 MG/1 ML VIAL IV SCH (01:43)
[2018-04-17] MEDS: MEROPENEM 1,000 MG in SYRINGE 1 EACH IV SCH (05:38)
[2018-04-17 07:00] LABS: Basophils % 0.4 % (0.0-0.8); Eosinophils % 0.3 % (0.00-10.9); Hematocrit 26.2 VOL% (35.7-47.0); Hemoglobin 8.3 GM/DL (12.0-16.0); Immature Granulocytes % 5.1 %; Immature Granulocytes Absolute 0.53 #; Lymphocytes # 1.8 10*3/uL (1.4-4.0); Lymphocytes % 17.6 % (21.3-54.2); Mean Corpuscular HGB Conc 31.7 GM/DL (32-36); Mean Corpuscular Hemoglobin 31 PG (27-34); Mean Corpuscular Volume 97.8 FL (87-102); Mean Platelet Volume 8.2 FL (9.6-12.0); Monocytes # 0.3 10*3/uL (0.11-0.8); Monocytes % 2.8 % (1.7-12.7); Neutrophils # 7.7 10*3/uL (1.4-7.4); Neutrophils % 73.8 % (38.7-73.9); Platelet Count 389 T/CUMM (130-400); Red Blood Count 2.68 MC/CUMM (3.8-5.5); Red Cell Distribution Width 13.6 % (9.3-17.3); White Blood Count 10.4 T/CUMM (4-12)
[2018-04-17 07:17] LABS: Calcium 9.1 MG/DL (8.5-10.1); Osmolality,Calculated 284.3 MOS/KG (273-304); Potassium 4.9 MMOL/L (3.5-5.1)
[2018-04-17 07:20] LABS: Band Neutrophils 2 % (0-10); Eosinophils 3 % (0-10); Lymphocytes 20 % (20-55); Platelet Estimate Adequate; Segmented Neutrophils 73 % (50-85); Total Cells Counted 100
[2018-04-17 07:21] LABS: Hypochromasia 1+
[2018-04-17] MEDS: DORNASE ALFA 2.5 MG/2.5 ML VIAL RESP TX SCH (07:51)
[2018-04-17] MEDS: ALBUTEROL/IPRATROPIUM 3 ML NEB RESP TX SCH ×2 (07:51→14:43)
[2018-04-17] MEDS: PYRIDOXINE 100 MG TABLET PO SCH (09:46)
[2018-04-17] MEDS: AZITHROMYCIN 250 MG TABLET PO SCH (09:46)
[2018-04-17] MEDS: THEOPHYLLINE ER 300 MG TABLET PO SCH (09:46)
[2018-04-17] MEDS: PANTOPRAZOLE 40 MG TABLET PO SCH (09:46)
[2018-04-17] MEDS: ISONIAZID 300 MG TABLET PO SCH (09:47)
[2018-04-17] MEDS: ASPIRIN EC 81 MG TABLET PO SCH (09:47)
[2018-04-17] MEDS: RIFAMPIN 300 MG CAPSULE PO SCH (09:47)
[2018-04-17] MEDS: FERROUS SULFATE 325 MG TABLET PO SCH (09:47)
[2018-04-17] MEDS: MULTIVITAMIN (BEROCCA) TABLET PO SCH (09:47)
[2018-04-17] MEDS: cefTAZidime 1,000 MG in SYRINGE 1 EACH IV SCH (09:50)
[2018-04-17] MEDS: ALUMINUM/MAGNES/SIMETH MAX STR 30 ML UDCUP PO SCH (09:56)
[2018-04-17] MEDS: LEVOTHYROXINE 100 MCG TABLET PO SCH (09:56)
[2018-04-17] MEDS: FERRIC GLUCONATE COMPLEX 125 MG in SODIUM CHLORIDE 0.9% 100 ML IV SCH (09:58)
[2018-04-17 11:59] VITALS: BP 133/58
== END 2018-04-17 13:45 | disposition home or self-care (01) | DRG 178 ==
LOC: N.5E 13:31
PROVIDERS: ADMIT Internal Medicine Pulmonary Disease; ATTEND Internal Medicine Pulmonary Disease

== ENCOUNTER 2021-02-15 17:08 | Inpatient (IN) ==
[2021-02-15 18:35] LABS: Basophils % 0.5 % (0.0-0.8); Eosinophils % 0.2 % (0.00-10.9); Hematocrit 31.4 VOL% (35.7-47.0); Immature Granulocytes % 2.2 %; Immature Granulocytes Absolute 0.19 #; Lymphocytes # 0.8 10*3/uL (1.4-4.0); Lymphocytes % 9.4 % (21.3-54.2); Mean Corpuscular HGB Conc 31.8 GM/DL (32-36); Mean Corpuscular Volume 92.1 FL (87-102); Mean Platelet Volume 8.5 FL (9.6-12.0); Monocytes % 8.5 % (1.7-12.7); Neutrophils % 79.2 % (38.7-73.9); Platelet Count 293 T/CUMM (130-400); Red Blood Count 3.41 MC/CUMM (3.8-5.5); Red Cell Distribution Width 12.5 % (9.3-17.3); White Blood Count 8.5 T/CUMM (4-12)
[2021-02-15 18:53] LABS: PT Patient Result 11.1 SECS (10.5-12.0)
[2021-02-15 19:06] LABS: Alanine Aminotransferase 17 U/L (13-56); Albumin 2.4 G/DL (3.4-5.0); Alkaline Phosphatase 49 U/L (45-117); Aspartate Amino Transferase 13 U/L (0-37); Bilirubin,Total < 0.39 MG/DL (0.2-1.0); Blood Urea Nitrogen 26 MG/DL (7-18); Calcium 8.9 MG/DL (8.5-10.1); Carbon Dioxide 24 MMOL/L (21-32); Estimated Glom Filtration Rate 35 ML/MIN; Glucose 127 MG/DL (74-106); Osmolality,Calculated 279.8 MOS/KG (273-304); Potassium 4.5 MMOL/L (3.5-5.1); Sodium 137 MMOL/L (136-145); Total Protein 6.9 G/DL (6.4-8.2)
[2021-02-15] MEDS ORDERED: SODIUM CHLORIDE 0.9% 1,000 ML IV STA (19:13)
[2021-02-15] MEDS ORDERED: MORPHINE 4 MG/1 ML VIAL IV STA (20:25)
[2021-02-15] MEDS ORDERED: PANTOPRAZOLE 40 MG VIAL IV STA (21:10)
[2021-02-15] MEDS ORDERED: ALUM/MAG/SIMETH/LIDO VISC 1:1 30 ML BOTTLE PO STA (21:10)
[2021-02-15] MEDS ORDERED: DEXTROSE 50% 25 GM/50 ML VIAL IV PRN (21:45)
[2021-02-15] MEDS ORDERED: GLUCAGON 1 MG VIAL IM PRN (21:45)
[2021-02-15] MEDS ORDERED: ALBUTEROL/IPRATROPIUM 3 ML NEB RESP TX ONE (23:31)
[2021-02-16] MEDS: ALBUTEROL/IPRATROPIUM 3 ML NEB RESP TX SCH ×4 (00:05→19:47)
[2021-02-16] MEDS: MORPHINE 4 MG/1 ML VIAL IV PRN ×3 (00:13→15:59)
[2021-02-16 05:19] LABS: Basophils % 0.6 % (0.0-0.8); Eosinophils # 0.2 10*3/uL (0.0-0.87); Eosinophils % 2.9 % (0.00-10.9); Hematocrit 30.5 VOL% (35.7-47.0); Hemoglobin 9.6 GM/DL (12.0-16.0); Immature Granulocytes % 1.7 %; Immature Granulocytes Absolute 0.12 #; Lymphocytes # 1.3 10*3/uL (1.4-4.0); Lymphocytes % 19.5 % (21.3-54.2); Mean Corpuscular HGB Conc 31.5 GM/DL (32-36); Mean Corpuscular Volume 93.3 FL (87-102); Mean Platelet Volume 8.7 FL (9.6-12.0); Monocytes % 12.1 % (1.7-12.7); Neutrophils % 63.2 % (38.7-73.9); Platelet Count 295 T/CUMM (130-400); Red Blood Count 3.27 MC/CUMM (3.8-5.5); Red Cell Distribution Width 12.5 % (9.3-17.3); White Blood Count 6.9 T/CUMM (4-12)
[2021-02-16 05:45] LABS: Albumin 2.4 G/DL (3.4-5.0); Bilirubin,Total 0.5 MG/DL (0.2-1.0); Calcium 8.8 MG/DL (8.5-10.1); Osmolality,Calculated 285.1 MOS/KG (273-304); Potassium 4.5 MMOL/L (3.5-5.1); Total Protein 6.5 G/DL (6.4-8.2)
[2021-02-16] MEDS: PANTOPRAZOLE 40 MG VIAL IV SCH ×2 (08:47→21:05)
[2021-02-16] MEDS: ACETAMINOPHEN 325 MG TABLET PO PRN ×2 (08:51→21:03)
[2021-02-16 09:24] LABS: % Iron Saturation 15.3 % (18-50); Ferritin 347.9 ng/ml (8-252)
[2021-02-16] MEDS ORDERED: DIAZEPAM 2 MG TABLET PO PRN ×2 (12:14)
[2021-02-16] MEDS ORDERED: hydrOXYzine HCL 10 MG TABLET PO PRN (12:20)
[2021-02-16] MEDS ORDERED: ALBUTEROL/IPRATROPIUM 3 ML NEB RESP TX PRN (12:23)
[2021-02-16] MEDS: DORNASE ALFA 2.5 MG/2.5 ML VIAL RESP TX SCH ×2 (12:40→19:49)
[2021-02-16] MEDS: FERROUS SULFATE 325 MG TABLET PO SCH (12:54)
[2021-02-16] MEDS: THEOPHYLLINE ER 300 MG TABLET PO SCH (12:54)
[2021-02-16] MEDS: methylPREDNISolone 4 MG TABLET PO SCH (12:56)
[2021-02-16 13:15] LABS: Free T4 (Free Thyroxine) 1.65 NG/DL (0.76-1.46); Thyroid Stimulating Hormone 0.034 uIU/ml (0.358-3.74)
[2021-02-16] MEDS ORDERED: MEROPENEM 500 MG in SODIUM CHLORIDE 0.9% 100 ML IV SCH (14:00)
[2021-02-16] MEDS: MEROPENEM 500 MG in SODIUM CHLORIDE 0.9% 100 ML IV SCH (16:00)
[2021-02-17] MEDS: MEROPENEM 500 MG in SODIUM CHLORIDE 0.9% 100 ML IV SCH ×3 (00:33→17:04)
[2021-02-17] MEDS: ALBUTEROL/IPRATROPIUM 3 ML NEB RESP TX SCH ×4 (01:38→19:22)
[2021-02-17] MEDS: DORNASE ALFA 2.5 MG/2.5 ML VIAL RESP TX SCH ×2 (07:30→19:22)
[2021-02-17 08:56] LABS: Basophils % 0.3 % (0.0-0.8); Eosinophils # 0.3 10*3/uL (0.0-0.87); Eosinophils % 2.8 % (0.00-10.9); Hematocrit 30.5 VOL% (35.7-47.0); Hemoglobin 9.7 GM/DL (12.0-16.0); Immature Granulocytes % 1.7 %; Immature Granulocytes Absolute 0.15 #; Lymphocytes % 10.7 % (21.3-54.2); Mean Corpuscular HGB Conc 31.8 GM/DL (32-36); Mean Corpuscular Volume 91.3 FL (87-102); Mean Platelet Volume 8.5 FL (9.6-12.0); Monocytes % 9.2 % (1.7-12.7); Neutrophils % 75.3 % (38.7-73.9); Platelet Count 261 T/CUMM (130-400); Red Blood Count 3.34 MC/CUMM (3.8-5.5); White Blood Count 9.1 T/CUMM (4-12)
[2021-02-17] MEDS ORDERED: LACTATED RINGERS 1,000 ML IV SCH (10:00)
[2021-02-17] MEDS: PANTOPRAZOLE 40 MG VIAL IV SCH ×2 (10:02→20:08)
[2021-02-17] MEDS ORDERED: propofoL 200 MG/20 ML VIAL IV ONE (13:08)
[2021-02-17] MEDS ORDERED: LIDOCAINE 2% 5 ML VIAL ONE (13:08)
[2021-02-17] MEDS ORDERED: ETOMIDATE 20 MG/10 ML VIAL IV ONE (13:08)
[2021-02-17] MEDS: LEVOTHYROXINE 100 MCG TABLET PO SCH (16:36)
[2021-02-17] MEDS ORDERED: KETOROLAC 15 MG/1 ML VIAL IV ONE (16:46)
[2021-02-17] MEDS: THEOPHYLLINE ER 300 MG TABLET PO SCH (17:04)
[2021-02-17] MEDS: methylPREDNISolone 4 MG TABLET PO SCH (17:04)
[2021-02-17] MEDS: FERROUS SULFATE 325 MG TABLET PO SCH (17:04)
[2021-02-17] MEDS: ACETAMINOPHEN 325 MG TABLET PO PRN (20:08)
[2021-02-18] MEDS: MEROPENEM 500 MG in SODIUM CHLORIDE 0.9% 100 ML IV SCH ×3 (00:33→16:59)
[2021-02-18] MEDS: ALBUTEROL/IPRATROPIUM 3 ML NEB RESP TX SCH ×2 (00:50→06:55)
[2021-02-18 06:17] LABS: Basophils % 0.4 % (0.0-0.8); Eosinophils % 0.1 % (0.00-10.9); Hematocrit 28.3 VOL% (35.7-47.0); Hemoglobin 9.3 GM/DL (12.0-16.0); Immature Granulocytes % 1.3 %; Immature Granulocytes Absolute 0.11 #; Lymphocytes # 0.7 10*3/uL (1.4-4.0); Lymphocytes % 8.9 % (21.3-54.2); Mean Corpuscular HGB Conc 32.9 GM/DL (32-36); Mean Platelet Volume 8.8 FL (9.6-12.0); Monocytes % 5.8 % (1.7-12.7); Neutrophils % 83.5 % (38.7-73.9); Platelet Count 239 T/CUMM (130-400); Red Blood Count 3.11 MC/CUMM (3.8-5.5); Red Cell Distribution Width 12.6 % (9.3-17.3); White Blood Count 8.2 T/CUMM (4-12)
[2021-02-18 06:49] LABS: Calcium 8.4 MG/DL (8.5-10.1); Osmolality,Calculated 278.7 MOS/KG (273-304)
[2021-02-18] MEDS: DORNASE ALFA 2.5 MG/2.5 ML VIAL RESP TX SCH ×2 (07:06→19:16)
[2021-02-18] MEDS: PANTOPRAZOLE 40 MG VIAL IV SCH ×2 (08:06→20:13)
[2021-02-18] MEDS: THEOPHYLLINE ER 300 MG TABLET PO SCH (08:07)
[2021-02-18] MEDS: LEVOTHYROXINE 100 MCG TABLET PO SCH (08:07)
[2021-02-18] MEDS: methylPREDNISolone 4 MG TABLET PO SCH (08:07)
[2021-02-18] MEDS: FERROUS SULFATE 325 MG TABLET PO SCH (08:07)
[2021-02-18] MEDS: IPRATROPIUM 500 MCG/2.5 ML NEB RESP TX SCH ×2 (12:50→19:16)
[2021-02-18] MEDS: KETOROLAC 15 MG/1 ML VIAL IV SCH ×2 (14:37→20:13)
[2021-02-18] MEDS ORDERED: IRON DEXTRAN 25 MG in SYRINGE 1 EACH IV ONE (15:00)
[2021-02-18] MEDS ORDERED: DEXAMETHASONE 10 MG/1 ML VIAL IV ONE (15:00)
[2021-02-18] MEDS ORDERED: diphenhydrAMINE 50 MG/1 ML VIAL IV ONE (15:00)
[2021-02-18] MEDS ORDERED: FAMOTIDINE 20 MG TABLET PO ONE (15:00)
[2021-02-18] MEDS ORDERED: IRON DEXTRAN 975 MG in SODIUM CHLORIDE 0.9% 500 ML IV ONE (15:30)
[2021-02-18] MEDS: ACETAMINOPHEN 325 MG TABLET PO PRN (20:13)
[2021-02-19] MEDS: IPRATROPIUM 500 MCG/2.5 ML NEB RESP TX SCH ×4 (00:10→19:20)
[2021-02-19] MEDS: MEROPENEM 500 MG in SODIUM CHLORIDE 0.9% 100 ML IV SCH ×3 (01:38→17:13)
[2021-02-19 05:52] LABS: Basophils % 0.1 % (0.0-0.8); Hematocrit 28.1 VOL% (35.7-47.0); Hemoglobin 9.1 GM/DL (12.0-16.0); Immature Granulocytes % 2.3 %; Immature Granulocytes Absolute 0.22 #; Lymphocytes # 0.6 10*3/uL (1.4-4.0); Lymphocytes % 6.8 % (21.3-54.2); Mean Corpuscular HGB Conc 32.4 GM/DL (32-36); Mean Corpuscular Volume 90.9 FL (87-102); Mean Platelet Volume 8.7 FL (9.6-12.0); Monocytes % 1.1 % (1.7-12.7); Neutrophils % 89.7 % (38.7-73.9); Platelet Count 274 T/CUMM (130-400); Red Blood Count 3.09 MC/CUMM (3.8-5.5); Red Cell Distribution Width 12.7 % (9.3-17.3); White Blood Count 9.4 T/CUMM (4-12)
[2021-02-19 06:02] LABS: Partial Thromboplastin Time 33.6 SECS (23.9-33.8)
[2021-02-19 06:14] LABS: Osmolality,Calculated 287.4 MOS/KG (273-304); Potassium 4.1 MMOL/L (3.5-5.1)
[2021-02-19 06:20] LABS: Hypochromasia 1+; Lymphocytes 3 % (20-55); Microcytosis 1+; Platelet Estimate Adequate; Segmented Neutrophils 94 % (50-85); Total Cells Counted 100
[2021-02-19] MEDS ORDERED: diphenhydrAMINE 50 MG/1 ML VIAL IM ONE (07:30)
[2021-02-19] MEDS ORDERED: BENZONATATE 100 MG CAPSULE PO ONE (07:30)
[2021-02-19] MEDS ORDERED: MEPERIDINE 50 MG/1 ML VIAL IV ONE (07:30)
[2021-02-19] MEDS: DORNASE ALFA 2.5 MG/2.5 ML VIAL RESP TX SCH ×2 (07:50→19:30)
[2021-02-19] MEDS ORDERED: LIDOCAINE 2% 20 ML VIAL RESP TX ONE (08:00)
[2021-02-19] MEDS ORDERED: LIDOCAINE 1% 20 ML VIAL MISC INJ ONE (08:00)
[2021-02-19] MEDS ORDERED: LIDOCAINE 2% VISCOUS 100 ML BOTTLE SWISH/SPIT ONE (08:00)
[2021-02-19] MEDS: LEVOTHYROXINE 100 MCG TABLET PO SCH (12:16)
[2021-02-19] MEDS: FERROUS SULFATE 325 MG TABLET PO SCH (12:16)
[2021-02-19] MEDS: methylPREDNISolone 4 MG TABLET PO SCH (12:17)
[2021-02-19] MEDS: PANTOPRAZOLE 40 MG VIAL IV SCH ×2 (12:17→21:23)
[2021-02-19] MEDS: THEOPHYLLINE ER 300 MG TABLET PO SCH (12:17)
[2021-02-19] MEDS: KETOROLAC 15 MG/1 ML VIAL IV SCH ×2 (12:18→21:25)
[2021-02-19 18:36] LABS: CDT Result Negative (Negative); CDT Specimen Source STOOL
[2021-02-20] MEDS: MEROPENEM 500 MG in SODIUM CHLORIDE 0.9% 100 ML IV SCH ×4 (00:19→23:57)
[2021-02-20] MEDS: IPRATROPIUM 500 MCG/2.5 ML NEB RESP TX SCH ×4 (00:20→19:43)
[2021-02-20 05:16] LABS: Basophils % 0.1 % (0.0-0.8); Hematocrit 26.1 VOL% (35.7-47.0); Hemoglobin 8.3 GM/DL (12.0-16.0); Immature Granulocytes % 1.2 %; Immature Granulocytes Absolute 0.17 #; Lymphocytes # 0.8 10*3/uL (1.4-4.0); Lymphocytes % 6.1 % (21.3-54.2); Mean Corpuscular HGB Conc 31.8 GM/DL (32-36); Mean Corpuscular Volume 92.2 FL (87-102); Mean Platelet Volume 8.9 FL (9.6-12.0); Neutrophils % 86.6 % (38.7-73.9); Platelet Count 288 T/CUMM (130-400); Red Blood Count 2.83 MC/CUMM (3.8-5.5); Red Cell Distribution Width 12.8 % (9.3-17.3)
[2021-02-20 05:38] LABS: Calcium 7.9 MG/DL (8.5-10.1); Potassium 4.3 MMOL/L (3.5-5.1)
[2021-02-20 05:43] LABS: White Blood Count 13.7 T/CUMM (4-12)
[2021-02-20] MEDS: DORNASE ALFA 2.5 MG/2.5 ML VIAL RESP TX SCH ×2 (07:03→19:48)
[2021-02-20] MEDS: THEOPHYLLINE ER 300 MG TABLET PO SCH (09:52)
[2021-02-20] MEDS: FERROUS SULFATE 325 MG TABLET PO SCH (09:53)
[2021-02-20] MEDS: LEVOTHYROXINE 100 MCG TABLET PO SCH (09:53)
[2021-02-20] MEDS: methylPREDNISolone 4 MG TABLET PO SCH (09:53)
[2021-02-20] MEDS: PANTOPRAZOLE 40 MG VIAL IV SCH ×2 (09:57→20:44)
[2021-02-20] MEDS: KETOROLAC 15 MG/1 ML VIAL IV SCH ×2 (09:58→20:45)
[2021-02-21] MEDS: IPRATROPIUM 500 MCG/2.5 ML NEB RESP TX SCH ×4 (00:12→21:55)
[2021-02-21 06:25] LABS: Basophils % 0.2 % (0.0-0.8); Eosinophils # 0.1 10*3/uL (0.0-0.87); Hematocrit 28.3 VOL% (35.7-47.0); Immature Granulocytes % 4.2 %; Immature Granulocytes Absolute 0.48 #; Lymphocytes # 1.1 10*3/uL (1.4-4.0); Lymphocytes % 9.7 % (21.3-54.2); Mean Corpuscular HGB Conc 31.8 GM/DL (32-36); Mean Corpuscular Volume 92.8 FL (87-102); Mean Platelet Volume 8.7 FL (9.6-12.0); Monocytes % 8.9 % (1.7-12.7); Platelet Count 293 T/CUMM (130-400); Red Blood Count 3.05 MC/CUMM (3.8-5.5); Red Cell Distribution Width 13.1 % (9.3-17.3); White Blood Count 11.4 T/CUMM (4-12)
[2021-02-21 06:41] LABS: Calcium 7.9 MG/DL (8.5-10.1); Potassium 4.8 MMOL/L (3.5-5.1)
[2021-02-21] MEDS: DORNASE ALFA 2.5 MG/2.5 ML VIAL RESP TX SCH ×2 (07:21→21:55)
[2021-02-21] MEDS: MEROPENEM 500 MG in SODIUM CHLORIDE 0.9% 100 ML IV SCH ×2 (08:59→17:21)
[2021-02-21] MEDS: methylPREDNISolone 4 MG TABLET PO SCH (09:05)
[2021-02-21] MEDS: THEOPHYLLINE ER 300 MG TABLET PO SCH (09:05)
[2021-02-21] MEDS: PANTOPRAZOLE 40 MG VIAL IV SCH ×2 (09:06→20:21)
[2021-02-21] MEDS: KETOROLAC 15 MG/1 ML VIAL IV SCH ×2 (09:06→20:18)
[2021-02-21] MEDS: FERROUS SULFATE 325 MG TABLET PO SCH (09:06)
[2021-02-21] MEDS: LEVOTHYROXINE 100 MCG TABLET PO SCH (09:06)
[2021-02-21] MEDS ORDERED: POLYETHYLENE GLYCOL POWDER 255 GM BOTTLE PO ONE (14:00)
[2021-02-22] MEDS: MEROPENEM 500 MG in SODIUM CHLORIDE 0.9% 100 ML IV SCH ×3 (00:55→16:44)
[2021-02-22 04:54] LABS: Basophils # 0.1 10*3/uL (0.0-0.2); Basophils % 0.5 % (0.0-0.8); Eosinophils # 0.5 10*3/uL (0.0-0.87); Eosinophils % 4.6 % (0.00-10.9); Hemoglobin 9.8 GM/DL (12.0-16.0); Immature Granulocytes % 5.8 %; Immature Granulocytes Absolute 0.63 #; Lymphocytes # 1.5 10*3/uL (1.4-4.0); Lymphocytes % 14.1 % (21.3-54.2); Mean Corpuscular HGB Conc 31.6 GM/DL (32-36); Mean Corpuscular Volume 93.7 FL (87-102); Mean Platelet Volume 8.9 FL (9.6-12.0); Monocytes % 10.2 % (1.7-12.7); NRBC # 0.02 10*3/uL; Neutrophils % 64.8 % (38.7-73.9); Platelet Count 329 T/CUMM (130-400); Red Blood Count 3.31 MC/CUMM (3.8-5.5); Red Cell Distribution Width 13.2 % (9.3-17.3); White Blood Count 10.8 T/CUMM (4-12)
[2021-02-22 05:13] LABS: Calcium 8.3 MG/DL (8.5-10.1); Potassium 4.2 MMOL/L (3.5-5.1)
[2021-02-22 05:20] LABS: Eosinophils 2 % (0-10); Hypochromasia 1+; Lymphocytes 15 % (20-55); Microcytosis 1+; Platelet Estimate Adequate; Segmented Neutrophils 78 % (50-85); Total Cells Counted 100
[2021-02-22] MEDS: IPRATROPIUM 500 MCG/2.5 ML NEB RESP TX SCH ×4 (05:36→19:50)
[2021-02-22] MEDS: LEVOTHYROXINE 100 MCG TABLET PO SCH (07:08)
[2021-02-22] MEDS: DORNASE ALFA 2.5 MG/2.5 ML VIAL RESP TX SCH ×2 (07:20→19:56)
[2021-02-22] MEDS: KETOROLAC 15 MG/1 ML VIAL IV SCH ×2 (08:38→21:37)
[2021-02-22] MEDS: PANTOPRAZOLE 40 MG VIAL IV SCH ×2 (08:38→21:39)
[2021-02-22 09:51] LABS: PT Patient Result 10.8 SECS (10.5-12.0)
[2021-02-22] MEDS: LACTATED RINGERS 1,000 ML IV SCH (12:24)
[2021-02-22] MEDS ORDERED: PHENYLEPHRINE 1 MG/10 ML SYRINGE IV ONE (13:31)
[2021-02-22] MEDS ORDERED: LIDOCAINE 2% 5 ML VIAL ONE (13:31)
[2021-02-22] MEDS ORDERED: propofoL 200 MG/20 ML VIAL IV ONE ×2 (13:31→13:47)
[2021-02-22] MEDS: methylPREDNISolone 4 MG TABLET PO SCH (15:00)
[2021-02-22] MEDS: THEOPHYLLINE ER 300 MG TABLET PO SCH (15:00)
[2021-02-22] MEDS: FERROUS SULFATE 325 MG TABLET PO SCH (15:00)
[2021-02-23] MEDS: IPRATROPIUM 500 MCG/2.5 ML NEB RESP TX SCH ×4 (00:41→19:56)
[2021-02-23] MEDS: MEROPENEM 500 MG in SODIUM CHLORIDE 0.9% 100 ML IV SCH ×4 (01:18→23:34)
[2021-02-23] MEDS: LEVOTHYROXINE 100 MCG TABLET PO SCH (06:35)
[2021-02-23] MEDS: DORNASE ALFA 2.5 MG/2.5 ML VIAL RESP TX SCH ×2 (07:35→19:56)
[2021-02-23 07:59] LABS: Basophils # 0.1 10*3/uL (0.0-0.2); Basophils % 0.5 % (0.0-0.8); Eosinophils # 0.5 10*3/uL (0.0-0.87); Eosinophils % 4.8 % (0.00-10.9); Hematocrit 29.1 VOL% (35.7-47.0); Hemoglobin 9.4 GM/DL (12.0-16.0); Immature Granulocytes % 5.7 %; Immature Granulocytes Absolute 0.58 #; Lymphocytes % 9.5 % (21.3-54.2); Mean Corpuscular HGB Conc 32.3 GM/DL (32-36); Mean Corpuscular Volume 91.8 FL (87-102); Mean Platelet Volume 8.5 FL (9.6-12.0); Monocytes % 7.9 % (1.7-12.7); Neutrophils % 71.6 % (38.7-73.9); Platelet Count 286 T/CUMM (130-400); Red Blood Count 3.17 MC/CUMM (3.8-5.5); Red Cell Distribution Width 12.7 % (9.3-17.3); White Blood Count 10.2 T/CUMM (4-12)
[2021-02-23 08:21] LABS: Eosinophils 4 % (0-10); Hypochromasia 1+; Lymphocytes 5 % (20-55); Microcytosis 1+; Platelet Estimate Adequate; Segmented Neutrophils 80 % (50-85); Total Cells Counted 100
[2021-02-23 08:25] LABS: Calcium 8.1 MG/DL (8.5-10.1); Osmolality,Calculated 274.7 MOS/KG (273-304); Potassium 3.9 MMOL/L (3.5-5.1)
[2021-02-23] MEDS: FERROUS SULFATE 325 MG TABLET PO SCH (09:05)
[2021-02-23] MEDS: methylPREDNISolone 4 MG TABLET PO SCH (09:05)
[2021-02-23] MEDS: THEOPHYLLINE ER 300 MG TABLET PO SCH (09:06)
[2021-02-23] MEDS: KETOROLAC 15 MG/1 ML VIAL IV SCH (09:38)
[2021-02-23] MEDS: PANTOPRAZOLE 40 MG VIAL IV SCH ×2 (09:39→20:56)
[2021-02-23] MEDS: traMADol 50 MG TABLET PO PRN (18:32)
[2021-02-23] MEDS: DICYCLOMINE 10 MG CAPSULE PO SCH (20:51)
[2021-02-23] MEDS: ONDANSETRON 4 MG/2 ML VIAL IV PRN (23:35)
[2021-02-24] MEDS: IPRATROPIUM 500 MCG/2.5 ML NEB RESP TX SCH ×4 (00:03→19:33)
[2021-02-24] MEDS: LEVOTHYROXINE 100 MCG TABLET PO SCH (06:03)
[2021-02-24] MEDS: DORNASE ALFA 2.5 MG/2.5 ML VIAL RESP TX SCH ×2 (07:34→19:38)
[2021-02-24] MEDS: MEROPENEM 500 MG in SODIUM CHLORIDE 0.9% 100 ML IV SCH ×2 (08:45→15:49)
[2021-02-24] MEDS: PANTOPRAZOLE 40 MG VIAL IV SCH ×2 (08:46→20:17)
[2021-02-24] MEDS: FERROUS SULFATE 325 MG TABLET PO SCH (10:57)
[2021-02-24] MEDS: DICYCLOMINE 10 MG CAPSULE PO SCH ×2 (10:57→20:19)
[2021-02-24] MEDS: methylPREDNISolone 4 MG TABLET PO SCH (10:58)
[2021-02-24] MEDS: THEOPHYLLINE ER 300 MG TABLET PO SCH (10:58)
[2021-02-24] MEDS: LACTATED RINGERS 1,000 ML IV SCH ×5 (11:12→23:33)
[2021-02-24] MEDS ORDERED: BUPIVACAINE 0.5% 50 ML VIAL ONE ×2 (13:38→13:39)
[2021-02-24 14:17] LABS: Bilirubin,Urine Negative (Negative); Blood, Urine Small mg/dL (Negative); Glucose,Urine (UA) Negative (Negative); Hyaline Casts,Urine 1 /LPF (0-3); Ketones,Urine 5 mg/dL (Negative); Mucus,Urine Occasional /LPF (Occasional); Nitrite,Urine Negative (Negative); Protein,Urine Negative; RBC,Urine 2 /HPF (0-4); Squamous Epithelial Cell,Urine Occasional /HPF (0-10); Urine Appearance CLEAR (Clear); Urine Color Yellow (Yellow); Urine Specific Gravity 1.014 (1.001-1.035); Urine Urobilinogen < 2.0 EU/DL (0.2-1.0)
[2021-02-24] MEDS ORDERED: ALBUTEROL/IPRATROPIUM 3 ML NEB RESP TX PRN (14:29)
[2021-02-24] MEDS ORDERED: ONDANSETRON 4 MG/2 ML VIAL IV PRN (14:43)
[2021-02-24] MEDS: HYDROmorphone 2 MG/1 ML VIAL IV PRN ×2 (14:47→14:52)
[2021-02-25] MEDS: MEROPENEM 500 MG in SODIUM CHLORIDE 0.9% 100 ML IV SCH ×3 (01:00→18:01)
[2021-02-25] MEDS: IPRATROPIUM 500 MCG/2.5 ML NEB RESP TX SCH ×4 (01:23→19:43)
[2021-02-25 05:05] LABS: Basophils % 0.1 % (0.0-0.8); Hematocrit 26.5 VOL% (35.7-47.0); Hemoglobin 8.8 GM/DL (12.0-16.0); Immature Granulocytes % 1.6 %; Immature Granulocytes Absolute 0.25 #; Lymphocytes # 0.8 10*3/uL (1.4-4.0); Mean Corpuscular HGB Conc 33.2 GM/DL (32-36); Mean Corpuscular Volume 91.7 FL (87-102); Mean Platelet Volume 8.9 FL (9.6-12.0); Monocytes % 4.3 % (1.7-12.7); Platelet Count 265 T/CUMM (130-400); Red Blood Count 2.89 MC/CUMM (3.8-5.5); Red Cell Distribution Width 12.8 % (9.3-17.3); White Blood Count 15.7 T/CUMM (4-12)
[2021-02-25 05:47] LABS: Calcium 7.8 MG/DL (8.5-10.1); Osmolality,Calculated 281.4 MOS/KG (273-304); Potassium 4.3 MMOL/L (3.5-5.1)
[2021-02-25] MEDS: DORNASE ALFA 2.5 MG/2.5 ML VIAL RESP TX SCH ×2 (07:26→19:49)
[2021-02-25] MEDS: methylPREDNISolone 4 MG TABLET PO SCH (08:32)
[2021-02-25] MEDS: DICYCLOMINE 10 MG CAPSULE PO SCH (08:32)
[2021-02-25] MEDS: LEVOTHYROXINE 100 MCG TABLET PO SCH (08:32)
[2021-02-25] MEDS: FERROUS SULFATE 325 MG TABLET PO SCH (08:32)
[2021-02-25] MEDS: PANTOPRAZOLE 40 MG VIAL IV SCH ×2 (08:39→20:38)
[2021-02-25] MEDS: KETOROLAC 15 MG/1 ML VIAL IV PRN ×2 (08:41→15:19)
[2021-02-25] MEDS: THEOPHYLLINE ER 300 MG TABLET PO SCH (08:44)
[2021-02-25] MEDS: LACTATED RINGERS 1,000 ML IV SCH ×3 (09:18→20:37)
[2021-02-25] MEDS: ACYCLOVIR 5% OINT 15 GM TUBE TOP SCH ×4 (11:10→22:30)
[2021-02-25] MEDS ORDERED: SODIUM BICARBONATE 50 MEQ/50 ML VIAL IV ONE (11:48)
[2021-02-25] MEDS ORDERED: LACTATED RINGERS 500 ML IV ONE (14:19)
[2021-02-25] MEDS: HYDROmorphone 2 MG/1 ML VIAL IV PRN (20:42)
[2021-02-26] MEDS: IPRATROPIUM 500 MCG/2.5 ML NEB RESP TX SCH ×4 (00:36→19:28)
[2021-02-26] MEDS: MEROPENEM 500 MG in SODIUM CHLORIDE 0.9% 100 ML IV SCH ×3 (02:47→19:10)
[2021-02-26] MEDS: LACTATED RINGERS 1,000 ML IV SCH ×3 (05:00→19:10)
[2021-02-26 05:59] LABS: Basophils % 0.2 % (0.0-0.8); Eosinophils % 0.3 % (0.00-10.9); Hematocrit 26.6 VOL% (35.7-47.0); Hemoglobin 8.6 GM/DL (12.0-16.0); Immature Granulocytes % 1.5 %; Immature Granulocytes Absolute 0.18 #; Lymphocytes # 0.7 10*3/uL (1.4-4.0); Mean Corpuscular HGB Conc 32.3 GM/DL (32-36); Mean Corpuscular Volume 92.4 FL (87-102); Monocytes % 7.8 % (1.7-12.7); Neutrophils % 84.2 % (38.7-73.9); Platelet Count 278 T/CUMM (130-400); Red Blood Count 2.88 MC/CUMM (3.8-5.5); Red Cell Distribution Width 13.2 % (9.3-17.3); White Blood Count 11.8 T/CUMM (4-12)
[2021-02-26] MEDS: HYDROmorphone 2 MG/1 ML VIAL IV PRN ×2 (06:00→17:44)
[2021-02-26 06:18] LABS: Calcium 8.1 MG/DL (8.5-10.1); Osmolality,Calculated 281.3 MOS/KG (273-304); Potassium 4.3 MMOL/L (3.5-5.1)
[2021-02-26] MEDS: ACYCLOVIR 5% OINT 15 GM TUBE TOP SCH ×5 (06:21→21:19)
[2021-02-26] MEDS: DORNASE ALFA 2.5 MG/2.5 ML VIAL RESP TX SCH ×2 (07:14→19:28)
[2021-02-26] MEDS: PANTOPRAZOLE 40 MG VIAL IV SCH ×2 (08:13→21:16)
[2021-02-26] MEDS: LEVOTHYROXINE 100 MCG TABLET PO SCH (08:14)
[2021-02-26] MEDS: FERROUS SULFATE 325 MG TABLET PO SCH (08:14)
[2021-02-26] MEDS: THEOPHYLLINE ER 300 MG TABLET PO SCH (08:14)
[2021-02-26] MEDS: methylPREDNISolone 4 MG TABLET PO SCH (08:14)
[2021-02-26] MEDS ORDERED: SODIUM CHLORIDE 0.9% 1,000 ML IV PRN (09:23)
[2021-02-26] MEDS ORDERED: ENOXAPARIN 40 MG/0.4 ML SYRINGE SUBCUT SCH (12:30)
[2021-02-27] MEDS: MEROPENEM 500 MG in SODIUM CHLORIDE 0.9% 100 ML IV SCH ×3 (01:01→18:29)
[2021-02-27] MEDS: IPRATROPIUM 500 MCG/2.5 ML NEB RESP TX SCH ×4 (01:40→19:38)
[2021-02-27] MEDS: HYDROmorphone 2 MG/1 ML VIAL IV PRN ×2 (02:10→14:34)
[2021-02-27] MEDS: ONDANSETRON 4 MG/2 ML VIAL IV PRN (02:15)
[2021-02-27] MEDS: LACTATED RINGERS 1,000 ML IV SCH ×2 (05:20→05:35)
[2021-02-27] MEDS: ACYCLOVIR 5% OINT 15 GM TUBE TOP SCH ×5 (05:54→21:28)
[2021-02-27 06:00] LABS: Basophils % 0.3 % (0.0-0.8); Eosinophils # 0.2 10*3/uL (0.0-0.87); Eosinophils % 1.7 % (0.00-10.9); Hematocrit 31.3 VOL% (35.7-47.0); Hemoglobin 10.1 GM/DL (12.0-16.0); Immature Granulocytes % 1.7 %; Immature Granulocytes Absolute 0.16 #; Lymphocytes # 0.7 10*3/uL (1.4-4.0); Lymphocytes % 7.5 % (21.3-54.2); Mean Corpuscular HGB Conc 32.3 GM/DL (32-36); Mean Corpuscular Volume 92.1 FL (87-102); Mean Platelet Volume 9.3 FL (9.6-12.0); Monocytes % 9.4 % (1.7-12.7); Neutrophils % 79.4 % (38.7-73.9); Platelet Count 253 T/CUMM (130-400); Red Cell Distribution Width 13.7 % (9.3-17.3); White Blood Count 9.6 T/CUMM (4-12)
[2021-02-27] MEDS: LEVOTHYROXINE 100 MCG TABLET PO SCH (06:00)
[2021-02-27 06:22] LABS: Calcium 8.1 MG/DL (8.5-10.1); Osmolality,Calculated 280.3 MOS/KG (273-304); Potassium 4.2 MMOL/L (3.5-5.1)
[2021-02-27] MEDS: DORNASE ALFA 2.5 MG/2.5 ML VIAL RESP TX SCH ×2 (07:17→19:44)
[2021-02-27] MEDS: FERROUS SULFATE 325 MG TABLET PO SCH (08:45)
[2021-02-27] MEDS: THEOPHYLLINE ER 300 MG TABLET PO SCH (08:45)
[2021-02-27] MEDS: methylPREDNISolone 4 MG TABLET PO SCH (08:45)
[2021-02-27] MEDS: KETOROLAC 15 MG/1 ML VIAL IV PRN (08:45)
[2021-02-27] MEDS: PANTOPRAZOLE 40 MG VIAL IV SCH ×2 (08:51→21:26)
[2021-02-27] MEDS: DEXTROSE 5% 1,000 ML IV SCH (14:30)
[2021-02-28] MEDS: IPRATROPIUM 500 MCG/2.5 ML NEB RESP TX SCH ×4 (01:03→19:13)
[2021-02-28] MEDS: DEXTROSE 5% 1,000 ML IV SCH ×3 (01:25→15:33)
[2021-02-28] MEDS: MEROPENEM 500 MG in SODIUM CHLORIDE 0.9% 100 ML IV SCH ×3 (01:26→18:23)
[2021-02-28] MEDS: HYDROmorphone 2 MG/1 ML VIAL IV PRN ×3 (05:54→16:32)
[2021-02-28] MEDS: ACYCLOVIR 5% OINT 15 GM TUBE TOP SCH ×5 (05:58→21:26)
[2021-02-28] MEDS: LEVOTHYROXINE 100 MCG TABLET PO SCH (06:26)
[2021-02-28] MEDS: DORNASE ALFA 2.5 MG/2.5 ML VIAL RESP TX SCH ×2 (07:05→19:13)
[2021-02-28 08:34] LABS: Basophils % 0.3 % (0.0-0.8); Eosinophils # 0.3 10*3/uL (0.0-0.87); Eosinophils % 2.3 % (0.00-10.9); Hematocrit 32.6 VOL% (35.7-47.0); Hemoglobin 10.7 GM/DL (12.0-16.0); Immature Granulocytes % 1.8 %; Lymphocytes # 0.8 10*3/uL (1.4-4.0); Lymphocytes % 7.4 % (21.3-54.2); Mean Corpuscular HGB Conc 32.8 GM/DL (32-36); Mean Corpuscular Volume 90.8 FL (87-102); Mean Platelet Volume 9.2 FL (9.6-12.0); Monocytes % 8.2 % (1.7-12.7); Platelet Count 249 T/CUMM (130-400); Red Blood Count 3.59 MC/CUMM (3.8-5.5); Red Cell Distribution Width 13.2 % (9.3-17.3); White Blood Count 11.4 T/CUMM (4-12)
[2021-02-28] MEDS: methylPREDNISolone 4 MG TABLET PO SCH (08:49)
[2021-02-28] MEDS: FERROUS SULFATE 325 MG TABLET PO SCH (08:50)
[2021-02-28] MEDS: THEOPHYLLINE ER 300 MG TABLET PO SCH (08:50)
[2021-02-28] MEDS: PANTOPRAZOLE 40 MG VIAL IV SCH ×2 (08:51→21:24)
[2021-02-28 09:00] LABS: Calcium 7.8 MG/DL (8.5-10.1); Osmolality,Calculated 272.1 MOS/KG (273-304); Potassium 3.6 MMOL/L (3.5-5.1)
[2021-03-01] MEDS: IPRATROPIUM 500 MCG/2.5 ML NEB RESP TX SCH ×4 (00:34→18:52)
[2021-03-01] MEDS: MEROPENEM 500 MG in SODIUM CHLORIDE 0.9% 100 ML IV SCH ×3 (01:04→17:47)
[2021-03-01] MEDS: DEXTROSE 5% 1,000 ML IV SCH ×2 (01:07→06:56)
[2021-03-01] MEDS: HYDROmorphone 2 MG/1 ML VIAL IV PRN (01:09)
[2021-03-01 04:43] LABS: Basophils % 0.2 % (0.0-0.8); Eosinophils # 0.1 10*3/uL (0.0-0.87); Eosinophils % 1.1 % (0.00-10.9); Hemoglobin 10.7 GM/DL (12.0-16.0); Immature Granulocytes % 1.4 %; Immature Granulocytes Absolute 0.17 #; Lymphocytes # 0.9 10*3/uL (1.4-4.0); Lymphocytes % 7.8 % (21.3-54.2); Mean Corpuscular HGB Conc 33.4 GM/DL (32-36); Mean Corpuscular Volume 89.4 FL (87-102); Mean Platelet Volume 9.2 FL (9.6-12.0); Neutrophils % 81.5 % (38.7-73.9); Platelet Count 215 T/CUMM (130-400); Red Blood Count 3.58 MC/CUMM (3.8-5.5); Red Cell Distribution Width 13.1 % (9.3-17.3); White Blood Count 12.1 T/CUMM (4-12)
[2021-03-01 05:00] LABS: Calcium 7.8 MG/DL (8.5-10.1); Osmolality,Calculated 267.4 MOS/KG (273-304); Potassium 3.5 MMOL/L (3.5-5.1)
[2021-03-01] MEDS: LEVOTHYROXINE 100 MCG TABLET PO SCH (06:42)
[2021-03-01] MEDS: ACYCLOVIR 5% OINT 15 GM TUBE TOP SCH ×5 (06:43→22:03)
[2021-03-01] MEDS: DORNASE ALFA 2.5 MG/2.5 ML VIAL RESP TX SCH ×2 (07:10→18:58)
[2021-03-01] MEDS: PANTOPRAZOLE 40 MG VIAL IV SCH ×2 (08:40→22:02)
[2021-03-01] MEDS: methylPREDNISolone 4 MG TABLET PO SCH (08:40)
[2021-03-01] MEDS: FERROUS SULFATE 325 MG TABLET PO SCH (08:40)
[2021-03-01] MEDS: THEOPHYLLINE ER 300 MG TABLET PO SCH (08:40)
[2021-03-01] MEDS: KETOROLAC 15 MG/1 ML VIAL IV PRN ×2 (09:43→17:46)
[2021-03-01] MEDS: ONDANSETRON 4 MG/2 ML VIAL IV PRN (10:21)
[2021-03-01] MEDS: DEXT 5% NACL 0.45% KCL 20 MEQ 20 MEQ/1,000 ML BAG IV SCH (10:29)
[2021-03-01] MEDS: METHOCARBAMOL INJ 500 MG in SODIUM CHLORIDE 0.9% 100 ML IV SCH ×2 (13:54→21:59)
[2021-03-01] MEDS: FAT EMULSION 20% 250 ML IV SCH (14:14)
[2021-03-01] MEDS ORDERED: ZINC/COPPER/MANGANESE/SELENIUM 1 ML, MULTIVITAMIN INJ 10 ML in AMINO ACIDS/DEXT/LYTES 5... IV ONE (17:00)
[2021-03-02] MEDS: IPRATROPIUM 500 MCG/2.5 ML NEB RESP TX SCH ×4 (00:40→18:13)
[2021-03-02] MEDS: MEROPENEM 500 MG in SODIUM CHLORIDE 0.9% 100 ML IV SCH ×4 (01:44→18:19)
[2021-03-02] MEDS: DEXT 5% NACL 0.45% KCL 20 MEQ 20 MEQ/1,000 ML BAG IV SCH ×2 (02:43→10:40)
[2021-03-02] MEDS: KETOROLAC 15 MG/1 ML VIAL IV PRN ×3 (03:00→20:21)
[2021-03-02] MEDS: METHOCARBAMOL INJ 500 MG in SODIUM CHLORIDE 0.9% 100 ML IV SCH ×3 (04:35→20:22)
[2021-03-02] MEDS: ACYCLOVIR 5% OINT 15 GM TUBE TOP SCH ×4 (05:24→21:31)
[2021-03-02 05:29] LABS: Basophils % 0.3 % (0.0-0.8); Eosinophils # 0.1 10*3/uL (0.0-0.87); Hematocrit 29.1 VOL% (35.7-47.0); Hemoglobin 9.7 GM/DL (12.0-16.0); Immature Granulocytes % 1.9 %; Immature Granulocytes Absolute 0.17 #; Lymphocytes # 0.5 10*3/uL (1.4-4.0); Lymphocytes % 5.6 % (21.3-54.2); Mean Corpuscular HGB Conc 33.3 GM/DL (32-36); Mean Corpuscular Volume 89.5 FL (87-102); Mean Platelet Volume 9.7 FL (9.6-12.0); Monocytes % 8.1 % (1.7-12.7); Neutrophils % 83.1 % (38.7-73.9); Platelet Count 215 T/CUMM (130-400); Red Blood Count 3.25 MC/CUMM (3.8-5.5); Red Cell Distribution Width 13.1 % (9.3-17.3); White Blood Count 8.9 T/CUMM (4-12)
[2021-03-02 05:52] LABS: Calcium 7.9 MG/DL (8.5-10.1); Osmolality,Calculated 278.5 MOS/KG (273-304); Potassium 3.7 MMOL/L (3.5-5.1)
[2021-03-02 05:52] LABS: Calcium 7.6 MG/DL (8.5-10.1); Osmolality,Calculated 280.4 MOS/KG (273-304); Potassium 3.7 MMOL/L (3.5-5.1)
[2021-03-02] MEDS: LEVOTHYROXINE 100 MCG TABLET PO SCH (06:07)
[2021-03-02] MEDS: DORNASE ALFA 2.5 MG/2.5 ML VIAL RESP TX SCH ×2 (07:18→18:13)
[2021-03-02] MEDS: PANTOPRAZOLE 40 MG VIAL IV SCH ×2 (08:48→20:21)
[2021-03-02] MEDS: FERROUS SULFATE 325 MG TABLET PO SCH (08:49)
[2021-03-02] MEDS: methylPREDNISolone 4 MG TABLET PO SCH (08:49)
[2021-03-02] MEDS: THEOPHYLLINE ER 300 MG TABLET PO SCH (08:49)
[2021-03-02] MEDS: traMADol 50 MG TABLET PO PRN (08:51)
[2021-03-02] MEDS ORDERED: POTASSIUM PHOSPHATE 30 MMOL in SODIUM CHLORIDE 0.9% 250 ML IV ONE (10:00)
[2021-03-02] MEDS: AMINOPHYLLINE 500 MG in SODIUM CHLORIDE 0.9% 480 ML IV SCH (11:06)
[2021-03-02] MEDS: methylPREDNISolone SOD SUC 40 MG/1 ML VIAL IV SCH ×2 (11:06→21:27)
[2021-03-02] MEDS: ACETAMINOPHEN 325 MG TABLET PO PRN (11:15)
[2021-03-02] MEDS ORDERED: ZINC/COPPER/MANGANESE/SELENIUM 1 ML, MULTIVITAMIN INJ 10 ML in AMINO ACIDS/DEXT/LYTES 5... IV SCH (17:00)
[2021-03-02] MEDS ORDERED: FLUCONAZOLE 150 MG TABLET PO ONE (18:00)
[2021-03-02 18:10] LABS: Bacteria,Urine Occasional /HPF (Few); Bilirubin,Urine Negative (Negative); Blood, Urine Small mg/dL (Negative); Glucose,Urine (UA) Negative (Negative); Ketones,Urine Negative (Negative); Nitrite,Urine Negative (Negative); Protein,Urine Negative; RBC,Urine <1 /HPF (0-4); Urine Appearance CLEAR (Clear); Urine Color Straw (Yellow); Urine Urobilinogen < 2.0 EU/DL (0.2-1.0)
[2021-03-03] MEDS: IPRATROPIUM 500 MCG/2.5 ML NEB RESP TX SCH ×4 (00:28→19:55)
[2021-03-03] MEDS: DEXT 5% NACL 0.45% KCL 20 MEQ 20 MEQ/1,000 ML BAG IV SCH (01:00)
[2021-03-03] MEDS: MEROPENEM 500 MG in SODIUM CHLORIDE 0.9% 100 ML IV SCH ×3 (02:06→18:17)
[2021-03-03] MEDS: METHOCARBAMOL INJ 500 MG in SODIUM CHLORIDE 0.9% 100 ML IV SCH ×3 (04:47→20:55)
[2021-03-03] MEDS: ACYCLOVIR 5% OINT 15 GM TUBE TOP SCH ×5 (05:29→21:07)
[2021-03-03 05:51] LABS: Basophils % 0.1 % (0.0-0.8); Hematocrit 31.2 VOL% (35.7-47.0); Immature Granulocytes % 1.8 %; Immature Granulocytes Absolute 0.12 #; Lymphocytes # 0.5 10*3/uL (1.4-4.0); Mean Corpuscular HGB Conc 32.1 GM/DL (32-36); Mean Corpuscular Volume 92.6 FL (87-102); Monocytes % 4.6 % (1.7-12.7); Neutrophils % 86.5 % (38.7-73.9); Platelet Count 237 T/CUMM (130-400); Red Blood Count 3.37 MC/CUMM (3.8-5.5); Red Cell Distribution Width 13.4 % (9.3-17.3); White Blood Count 6.8 T/CUMM (4-12)
[2021-03-03] MEDS: LEVOTHYROXINE 100 MCG TABLET PO SCH (06:19)
[2021-03-03 06:21] LABS: Albumin 1.7 G/DL (3.4-5.0); Bilirubin,Total 0.6 MG/DL (0.2-1.0); Calcium 7.6 MG/DL (8.5-10.1); Osmolality,Calculated 283.4 MOS/KG (273-304); Potassium 4.5 MMOL/L (3.5-5.1); Total Protein 4.8 G/DL (6.4-8.2)
[2021-03-03] MEDS: DORNASE ALFA 2.5 MG/2.5 ML VIAL RESP TX SCH (07:18)
[2021-03-03] MEDS: FERROUS SULFATE 325 MG TABLET PO SCH (09:25)
[2021-03-03] MEDS: methylPREDNISolone SOD SUC 40 MG/1 ML VIAL IV SCH ×2 (09:25→20:53)
[2021-03-03] MEDS: PANTOPRAZOLE 40 MG VIAL IV SCH ×2 (09:31→20:53)
[2021-03-03] MEDS ORDERED: FUROSEMIDE 20 MG/2 ML VIAL IV ONE (10:15)
[2021-03-03] MEDS: AMINOPHYLLINE 500 MG in SODIUM CHLORIDE 0.9% 480 ML IV SCH (12:53)
[2021-03-03] MEDS: FAT EMULSION 20% 250 ML IV SCH ×2 (15:22→15:35)
[2021-03-03] MEDS: ZINC/COPPER/MANGANESE/SELENIUM 1 ML, MULTIVITAMIN INJ 10 ML in AMINO ACIDS/DEXT/LYTES 5... IV SCH (18:10)
[2021-03-03] MEDS: KETOROLAC 15 MG/1 ML VIAL IV PRN (20:53)
[2021-03-04] MEDS: DORNASE ALFA 2.5 MG/2.5 ML VIAL RESP TX SCH ×3 (00:50→19:29)
[2021-03-04] MEDS: IPRATROPIUM 500 MCG/2.5 ML NEB RESP TX SCH ×4 (00:50→19:23)
[2021-03-04] MEDS: MEROPENEM 500 MG in SODIUM CHLORIDE 0.9% 100 ML IV SCH ×3 (01:17→18:43)
[2021-03-04] MEDS: METHOCARBAMOL INJ 500 MG in SODIUM CHLORIDE 0.9% 100 ML IV SCH ×3 (05:32→20:29)
[2021-03-04 05:46] LABS: Basophils % 0.2 % (0.0-0.8); Hematocrit 30.7 VOL% (35.7-47.0); Immature Granulocytes % 1.6 %; Immature Granulocytes Absolute 0.15 #; Lymphocytes # 0.5 10*3/uL (1.4-4.0); Lymphocytes % 5.3 % (21.3-54.2); Mean Corpuscular HGB Conc 32.6 GM/DL (32-36); Mean Corpuscular Volume 90.8 FL (87-102); Mean Platelet Volume 9.7 FL (9.6-12.0); Monocytes % 7.1 % (1.7-12.7); Neutrophils % 85.8 % (38.7-73.9); Platelet Count 241 T/CUMM (130-400); Red Blood Count 3.38 MC/CUMM (3.8-5.5); Red Cell Distribution Width 13.5 % (9.3-17.3); White Blood Count 9.4 T/CUMM (4-12)
[2021-03-04 05:56] LABS: Calcium 8.1 MG/DL (8.5-10.1); Osmolality,Calculated 281.7 MOS/KG (273-304); Potassium 4.1 MMOL/L (3.5-5.1)
[2021-03-04] MEDS: ACYCLOVIR 5% OINT 15 GM TUBE TOP SCH ×6 (06:08→22:58)
[2021-03-04] MEDS: LEVOTHYROXINE 100 MCG TABLET PO SCH (06:08)
[2021-03-04 06:17] LABS: Hypochromasia 1+; Lymphocytes 4 % (20-55); Microcytosis 1+; Platelet Estimate Adequate; Segmented Neutrophils 91 % (50-85); Total Cells Counted 100
[2021-03-04] MEDS: AMINOPHYLLINE 500 MG in SODIUM CHLORIDE 0.9% 480 ML IV SCH (09:55)
[2021-03-04] MEDS: FERROUS SULFATE 325 MG TABLET PO SCH (10:02)
[2021-03-04] MEDS: PANTOPRAZOLE 40 MG VIAL IV SCH ×2 (10:02→20:30)
[2021-03-04] MEDS: methylPREDNISolone SOD SUC 40 MG/1 ML VIAL IV SCH ×2 (10:04→20:30)
[2021-03-04] MEDS: METOCLOPRAMIDE 10 MG/2 ML VIAL IV SCH ×3 (11:38→23:10)
[2021-03-04] MEDS: ZINC/COPPER/MANGANESE/SELENIUM 1 ML, MULTIVITAMIN INJ 10 ML in AMINO ACIDS/DEXT/LYTES 5... IV SCH (17:52)
[2021-03-04] MEDS: KETOROLAC 15 MG/1 ML VIAL IV PRN (20:29)
[2021-03-05] MEDS: SIMETHICONE CHEW 125 MG TABLET PO PRN ×3 (00:09→21:13)
[2021-03-05] MEDS: IPRATROPIUM 500 MCG/2.5 ML NEB RESP TX SCH ×4 (00:26→19:12)
[2021-03-05] MEDS: MEROPENEM 500 MG in SODIUM CHLORIDE 0.9% 100 ML IV SCH ×3 (01:18→18:07)
[2021-03-05] MEDS: METOCLOPRAMIDE 10 MG/2 ML VIAL IV SCH ×4 (05:50→23:11)
[2021-03-05] MEDS: METHOCARBAMOL INJ 500 MG in SODIUM CHLORIDE 0.9% 100 ML IV SCH ×3 (05:51→21:12)
[2021-03-05 06:11] LABS: Basophils % 0.3 % (0.0-0.8); Hematocrit 30.5 VOL% (35.7-47.0); Immature Granulocytes Absolute 0.12 #; Lymphocytes # 0.4 10*3/uL (1.4-4.0); Mean Corpuscular HGB Conc 32.8 GM/DL (32-36); Mean Corpuscular Volume 92.1 FL (87-102); Monocytes % 7.6 % (1.7-12.7); Neutrophils % 88.1 % (38.7-73.9); Platelet Count 248 T/CUMM (130-400); Red Blood Count 3.31 MC/CUMM (3.8-5.5); Red Cell Distribution Width 13.8 % (9.3-17.3); White Blood Count 11.8 T/CUMM (4-12)
[2021-03-05] MEDS: LEVOTHYROXINE 100 MCG TABLET PO SCH (06:13)
[2021-03-05] MEDS: ACYCLOVIR 5% OINT 15 GM TUBE TOP SCH ×5 (06:21→21:07)
[2021-03-05 06:29] LABS: Osmolality,Calculated 286.5 MOS/KG (273-304); Potassium 4.1 MMOL/L (3.5-5.1)
[2021-03-05 06:50] LABS: Anisocytosis 1+; Band Neutrophils 38 % (0-10); Burr Cells Few; Lymphocytes 6 % (20-55); Metamyelocytes 1 %; Ovalocytes Few; Platelet Estimate Normal; Segmented Neutrophils 47 % (50-85); Total Cells Counted 100
[2021-03-05] MEDS: DORNASE ALFA 2.5 MG/2.5 ML VIAL RESP TX SCH ×2 (07:31→19:51)
[2021-03-05] MEDS: AMINOPHYLLINE 500 MG in SODIUM CHLORIDE 0.9% 480 ML IV SCH (09:24)
[2021-03-05] MEDS: PANTOPRAZOLE 40 MG VIAL IV SCH ×2 (09:25→21:06)
[2021-03-05] MEDS: FERROUS SULFATE 325 MG TABLET PO SCH (09:25)
[2021-03-05] MEDS: methylPREDNISolone SOD SUC 40 MG/1 ML VIAL IV SCH ×2 (09:30→21:07)
[2021-03-05] MEDS: HYDROmorphone 2 MG/1 ML VIAL IV PRN (10:46)
[2021-03-05] MEDS: FAT EMULSION 20% 250 ML IV SCH (13:45)
[2021-03-05] MEDS: ZINC/COPPER/MANGANESE/SELENIUM 1 ML, MULTIVITAMIN INJ 10 ML in AMINO ACIDS/DEXT/LYTES 5... IV SCH (16:39)
[2021-03-05] MEDS: KETOROLAC 15 MG/1 ML VIAL IV PRN ×2 (18:03→23:12)
[2021-03-06] MEDS: IPRATROPIUM 500 MCG/2.5 ML NEB RESP TX SCH ×4 (01:18→19:24)
[2021-03-06] MEDS: HYDROmorphone 2 MG/1 ML VIAL IV PRN ×2 (01:21→13:26)
[2021-03-06] MEDS: MEROPENEM 500 MG in SODIUM CHLORIDE 0.9% 100 ML IV SCH ×3 (02:41→17:47)
[2021-03-06] MEDS: METHOCARBAMOL INJ 500 MG in SODIUM CHLORIDE 0.9% 100 ML IV SCH ×3 (05:39→21:14)
[2021-03-06] MEDS: SIMETHICONE CHEW 125 MG TABLET PO PRN (05:39)
[2021-03-06] MEDS: ACYCLOVIR 5% OINT 15 GM TUBE TOP SCH ×5 (05:51→21:15)
[2021-03-06] MEDS: METOCLOPRAMIDE 10 MG/2 ML VIAL IV SCH (05:52)
[2021-03-06] MEDS: LEVOTHYROXINE 100 MCG TABLET PO SCH (06:22)
[2021-03-06] MEDS: KETOROLAC 15 MG/1 ML VIAL IV PRN (06:22)
[2021-03-06] MEDS: ONDANSETRON 4 MG/2 ML VIAL IV PRN ×2 (06:25→13:23)
[2021-03-06] MEDS: DORNASE ALFA 2.5 MG/2.5 ML VIAL RESP TX SCH ×2 (07:12→19:24)
[2021-03-06] MEDS: methylPREDNISolone SOD SUC 40 MG/1 ML VIAL IV SCH ×2 (09:55→21:10)
[2021-03-06] MEDS: PANTOPRAZOLE 40 MG VIAL IV SCH ×2 (09:58→21:12)
[2021-03-06] MEDS: FERROUS SULFATE 325 MG TABLET PO SCH ×2 (09:58→14:13)
[2021-03-06] MEDS: AMINOPHYLLINE 500 MG in SODIUM CHLORIDE 0.9% 480 ML IV SCH (10:01)
[2021-03-06] MEDS: SIMETHICONE CHEW 125 MG TABLET PO SCH ×4 (10:06→23:39)
[2021-03-06 10:16] LABS: Basophils % 0.6 % (0.0-0.8); Hematocrit 33.4 VOL% (35.7-47.0); Hemoglobin 10.8 GM/DL (12.0-16.0); Immature Granulocytes % 6.7 %; Immature Granulocytes Absolute 0.46 #; Lymphocytes # 0.4 10*3/uL (1.4-4.0); Lymphocytes % 5.6 % (21.3-54.2); Mean Corpuscular HGB Conc 32.3 GM/DL (32-36); Mean Corpuscular Volume 92.5 FL (87-102); Mean Platelet Volume 10.1 FL (9.6-12.0); Monocytes % 3.2 % (1.7-12.7); NRBC # 0.02 10*3/uL; Neutrophils % 83.9 % (38.7-73.9); Platelet Count 215 T/CUMM (130-400); Red Blood Count 3.61 MC/CUMM (3.8-5.5); White Blood Count 6.9 T/CUMM (4-12)
[2021-03-06 10:34] LABS: Band Neutrophils 12 % (0-10); Hypochromasia Slight; Lymphocytes 6 % (20-55); Microcytosis Slight; Platelet Estimate Adequate; Segmented Neutrophils 80 % (50-85); Total Cells Counted 100
[2021-03-06 10:46] LABS: Albumin 1.7 G/DL (3.4-5.0); Bilirubin,Total 0.8 MG/DL (0.2-1.0); Calcium 8.2 MG/DL (8.5-10.1); Osmolality,Calculated 283.8 MOS/KG (273-304); Potassium 4.3 MMOL/L (3.5-5.1); Total Protein 5.1 G/DL (6.4-8.2)
[2021-03-06] MEDS: ZINC/COPPER/MANGANESE/SELENIUM 1 ML, MULTIVITAMIN INJ 10 ML in AMINO ACIDS/DEXT/LYTES 5... IV SCH (17:50)
[2021-03-06] MEDS: ACETAMINOPHEN 325 MG TABLET PO PRN (18:00)
[2021-03-07] MEDS: IPRATROPIUM 500 MCG/2.5 ML NEB RESP TX SCH ×4 (00:42→20:07)
[2021-03-07] MEDS: ONDANSETRON 4 MG/2 ML VIAL IV PRN ×4 (00:43→22:24)
[2021-03-07] MEDS: HYDROmorphone 2 MG/1 ML VIAL IV PRN ×3 (00:48→22:25)
[2021-03-07] MEDS: MEROPENEM 500 MG in SODIUM CHLORIDE 0.9% 100 ML IV SCH ×3 (01:55→17:38)
[2021-03-07] MEDS: METHOCARBAMOL INJ 500 MG in SODIUM CHLORIDE 0.9% 100 ML IV SCH ×3 (04:18→20:52)
[2021-03-07 04:39] LABS: Basophils # 0.1 10*3/uL (0.0-0.2); Basophils % 0.4 % (0.0-0.8); Hematocrit 32.4 VOL% (35.7-47.0); Hemoglobin 10.2 GM/DL (12.0-16.0); Immature Granulocytes % 5.8 %; Lymphocytes # 0.6 10*3/uL (1.4-4.0); Lymphocytes % 3.5 % (21.3-54.2); Mean Corpuscular HGB Conc 31.5 GM/DL (32-36); Mean Corpuscular Volume 93.9 FL (87-102); Mean Platelet Volume 10.3 FL (9.6-12.0); Monocytes % 3.4 % (1.7-12.7); Neutrophils % 86.9 % (38.7-73.9); Platelet Count 215 T/CUMM (130-400); Red Blood Count 3.45 MC/CUMM (3.8-5.5); Red Cell Distribution Width 14.1 % (9.3-17.3); White Blood Count 15.5 T/CUMM (4-12)
[2021-03-07 04:56] LABS: Calcium 8.3 MG/DL (8.5-10.1); Osmolality,Calculated 288.7 MOS/KG (273-304); Potassium 4.9 MMOL/L (3.5-5.1)
[2021-03-07 05:05] LABS: Band Neutrophils 9 % (0-10); Hypochromasia Slight; Lymphocytes 4 % (20-55); Microcytosis Slight; Platelet Estimate Adequate; Segmented Neutrophils 85 % (50-85); Total Cells Counted 100
[2021-03-07] MEDS: SIMETHICONE CHEW 125 MG TABLET PO SCH ×3 (05:58→17:39)
[2021-03-07] MEDS: ACYCLOVIR 5% OINT 15 GM TUBE TOP SCH ×5 (05:59→21:12)
[2021-03-07] MEDS: LEVOTHYROXINE 100 MCG TABLET PO SCH (06:03)
[2021-03-07] MEDS: DORNASE ALFA 2.5 MG/2.5 ML VIAL RESP TX SCH ×2 (07:03→20:07)
[2021-03-07] MEDS: PANTOPRAZOLE 40 MG VIAL IV SCH ×2 (10:12→20:50)
[2021-03-07] MEDS: AMINOPHYLLINE 500 MG in SODIUM CHLORIDE 0.9% 480 ML IV SCH (10:13)
[2021-03-07] MEDS: FERROUS SULFATE 325 MG TABLET PO SCH (10:14)
[2021-03-07] MEDS: methylPREDNISolone SOD SUC 40 MG/1 ML VIAL IV SCH ×2 (10:14→20:49)
[2021-03-07] MEDS: FAT EMULSION 20% 250 ML IV SCH (14:19)
[2021-03-07] MEDS: ZINC/COPPER/MANGANESE/SELENIUM 1 ML, MULTIVITAMIN INJ 10 ML in AMINO ACIDS/DEXT/LYTES 5... IV SCH (17:38)
[2021-03-07] MEDS: metroNIDAZOLE INJ 500 MG/100 ML PREMIX IV SCH (19:54)
[2021-03-08] MEDS: SIMETHICONE CHEW 125 MG TABLET PO SCH ×4 (00:08→19:07)
[2021-03-08] MEDS: IPRATROPIUM 500 MCG/2.5 ML NEB RESP TX SCH ×4 (01:06→20:25)
[2021-03-08] MEDS: MEROPENEM 500 MG in SODIUM CHLORIDE 0.9% 100 ML IV SCH ×3 (01:48→17:12)
[2021-03-08] MEDS: HYDROmorphone 2 MG/1 ML VIAL IV PRN ×4 (03:22→22:26)
[2021-03-08] MEDS: metroNIDAZOLE INJ 500 MG/100 ML PREMIX IV SCH ×3 (03:26→22:38)
[2021-03-08] MEDS: METHOCARBAMOL INJ 500 MG in SODIUM CHLORIDE 0.9% 100 ML IV SCH ×3 (04:47→23:35)
[2021-03-08] MEDS: ONDANSETRON 4 MG/2 ML VIAL IV PRN ×2 (05:23→11:24)
[2021-03-08 05:32] LABS: Basophils % 0.1 % (0.0-0.8); Hematocrit 33.1 VOL% (35.7-47.0); Hemoglobin 11.1 GM/DL (12.0-16.0); Immature Granulocytes % 9.5 %; Immature Granulocytes Absolute 1.47 #; Lymphocytes # 0.3 10*3/uL (1.4-4.0); Lymphocytes % 1.9 % (21.3-54.2); Mean Corpuscular HGB Conc 33.5 GM/DL (32-36); Mean Corpuscular Volume 90.2 FL (87-102); Mean Platelet Volume 9.9 FL (9.6-12.0); Neutrophils % 84.5 % (38.7-73.9); Platelet Count 261 T/CUMM (130-400); Red Blood Count 3.67 MC/CUMM (3.8-5.5); Red Cell Distribution Width 14.1 % (9.3-17.3); White Blood Count 15.5 T/CUMM (4-12)
[2021-03-08] MEDS: ACYCLOVIR 5% OINT 15 GM TUBE TOP SCH ×4 (05:45→19:08)
[2021-03-08 05:47] LABS: Calcium 8.5 MG/DL (8.5-10.1); Osmolality,Calculated 279.2 MOS/KG (273-304); Potassium 4.5 MMOL/L (3.5-5.1)
[2021-03-08 06:11] LABS: Band Neutrophils 7 % (0-10); Lymphocytes 6 % (20-55); Segmented Neutrophils 85 % (50-85); Total Cells Counted 100
[2021-03-08 06:12] LABS: Hypochromasia 1+; Microcytosis 1+; Platelet Estimate Normal
[2021-03-08] MEDS: LEVOTHYROXINE 100 MCG TABLET PO SCH (07:00)
[2021-03-08] MEDS: DORNASE ALFA 2.5 MG/2.5 ML VIAL RESP TX SCH ×2 (07:16→20:25)
[2021-03-08] MEDS: PANTOPRAZOLE 40 MG VIAL IV SCH ×2 (10:01→22:02)
[2021-03-08] MEDS: methylPREDNISolone SOD SUC 40 MG/1 ML VIAL IV SCH ×3 (10:01→23:39)
[2021-03-08] MEDS: FERROUS SULFATE 325 MG TABLET PO SCH (10:04)
[2021-03-08] MEDS ORDERED: METHOCARBAMOL INJ 500 MG in SODIUM CHLORIDE 0.9% 100 ML IV SCH (11:30)
[2021-03-08 12:29] LABS: Bacteria,Urine Occasional /HPF (Few); Bilirubin,Urine Negative (Negative); Blood, Urine Small mg/dL (Negative); Glucose,Urine (UA) Negative (Negative); Ketones,Urine Negative (Negative); Mucus,Urine Occasional /LPF (Occasional); Nitrite,Urine Negative (Negative); Protein,Urine 30 MG/DL; RBC,Urine 12 /HPF (0-4); Urine Appearance CLEAR (Clear); Urine Color Yellow (Yellow); Urine Specific Gravity 1.019 (1.001-1.035); Urine Urobilinogen < 2.0 EU/DL (0.2-1.0)
[2021-03-08] MEDS: ACETAMINOPHEN INJ 1,000 MG/100 ML VIAL IV SCH ×2 (12:34→22:03)
[2021-03-08] MEDS ORDERED: FUROSEMIDE 40 MG/4 ML VIAL IV ONE (12:57)
[2021-03-08] MEDS: AMINOPHYLLINE 500 MG in SODIUM CHLORIDE 0.9% 480 ML IV SCH (18:48)
[2021-03-08] MEDS: ZINC/COPPER/MANGANESE/SELENIUM 1 ML, MULTIVITAMIN INJ 10 ML in AMINO ACIDS/DEXT/LYTES 5... IV SCH (18:49)
[2021-03-09] MEDS: IPRATROPIUM 500 MCG/2.5 ML NEB RESP TX SCH ×4 (00:44→19:38)
[2021-03-09] MEDS: HYDROmorphone 2 MG/1 ML VIAL IV PRN ×4 (01:44→21:50)
[2021-03-09] MEDS: ACYCLOVIR 5% OINT 15 GM TUBE TOP SCH ×6 (01:55→21:53)
[2021-03-09] MEDS: SIMETHICONE CHEW 125 MG TABLET PO SCH ×3 (02:07→12:45)
[2021-03-09] MEDS: MEROPENEM 500 MG in SODIUM CHLORIDE 0.9% 100 ML IV SCH ×3 (02:24→17:42)
[2021-03-09] MEDS: ACETAMINOPHEN INJ 1,000 MG/100 ML VIAL IV SCH ×3 (03:21→19:35)
[2021-03-09] MEDS: metroNIDAZOLE INJ 500 MG/100 ML PREMIX IV SCH ×3 (03:43→20:42)
[2021-03-09] MEDS: METHOCARBAMOL INJ 500 MG in SODIUM CHLORIDE 0.9% 100 ML IV SCH ×3 (04:43→21:49)
[2021-03-09 05:51] LABS: Basophils # 0.1 10*3/uL (0.0-0.2); Basophils % 0.6 % (0.0-0.8); Eosinophils % 0.1 % (0.00-10.9); Hematocrit 29.8 VOL% (35.7-47.0); Hemoglobin 9.5 GM/DL (12.0-16.0); Immature Granulocytes % 5.8 %; Immature Granulocytes Absolute 0.79 #; Lymphocytes # 0.3 10*3/uL (1.4-4.0); Lymphocytes % 2.4 % (21.3-54.2); Mean Corpuscular HGB Conc 31.9 GM/DL (32-36); Mean Corpuscular Volume 92.3 FL (87-102); Mean Platelet Volume 10.4 FL (9.6-12.0); Monocytes % 3.4 % (1.7-12.7); Neutrophils % 87.7 % (38.7-73.9); Platelet Count 236 T/CUMM (130-400); Red Blood Count 3.23 MC/CUMM (3.8-5.5); Red Cell Distribution Width 14.4 % (9.3-17.3); White Blood Count 13.7 T/CUMM (4-12)
[2021-03-09 06:16] LABS: Calcium 7.9 MG/DL (8.5-10.1); Osmolality,Calculated 286.1 MOS/KG (273-304); Potassium 4.5 MMOL/L (3.5-5.1)
[2021-03-09] MEDS: LEVOTHYROXINE 100 MCG TABLET PO SCH (06:16)
[2021-03-09 06:26] LABS: Band Neutrophils 8 % (0-10); Lymphocytes 6 % (20-55); Platelet Estimate Normal; Segmented Neutrophils 83 % (50-85); Total Cells Counted 100
[2021-03-09] MEDS: LACTATED RINGERS 1,000 ML IV SCH ×3 (07:15→21:50)
[2021-03-09] MEDS: DORNASE ALFA 2.5 MG/2.5 ML VIAL RESP TX SCH ×2 (07:25→19:45)
[2021-03-09] MEDS: FERROUS SULFATE 325 MG TABLET PO SCH (08:12)
[2021-03-09] MEDS: PANTOPRAZOLE 40 MG VIAL IV SCH ×2 (09:41→20:44)
[2021-03-09] MEDS: AMINOPHYLLINE 500 MG in SODIUM CHLORIDE 0.9% 480 ML IV SCH ×2 (09:46→11:10)
[2021-03-09] MEDS: ONDANSETRON 4 MG/2 ML VIAL IV PRN ×2 (09:47→18:17)
[2021-03-09] MEDS: methylPREDNISolone SOD SUC 40 MG/1 ML VIAL IV SCH ×2 (11:19→22:29)
[2021-03-09] MEDS ORDERED: FLUCONAZOLE INJ 400 MG/200 ML PREMIX IV SCH (13:00)
[2021-03-09] MEDS: MICAFUNGIN 100 MG in SODIUM CHLORIDE 0.9% 100 ML IV SCH (14:36)
[2021-03-09] MEDS: FAT EMULSION 20% 250 ML IV SCH (15:07)
[2021-03-09] MEDS: ZINC/COPPER/MANGANESE/SELENIUM 1 ML, MULTIVITAMIN INJ 10 ML in AMINO ACIDS/DEXT/LYTES 5... IV SCH (18:22)
[2021-03-10] MEDS: IPRATROPIUM 500 MCG/2.5 ML NEB RESP TX SCH ×5 (00:19→19:10)
[2021-03-10] MEDS: MEROPENEM 500 MG in SODIUM CHLORIDE 0.9% 100 ML IV SCH ×3 (01:13→20:00)
[2021-03-10] MEDS: ACETAMINOPHEN INJ 1,000 MG/100 ML VIAL IV SCH (02:45)
[2021-03-10] MEDS: metroNIDAZOLE INJ 500 MG/100 ML PREMIX IV SCH ×3 (04:43→21:00)
[2021-03-10 05:15] LABS: Basophils # 0.1 10*3/uL (0.0-0.2); Basophils % 0.5 % (0.0-0.8); Hematocrit 31.5 VOL% (35.7-47.0); Immature Granulocytes % 9.3 %; Immature Granulocytes Absolute 1.43 #; Lymphocytes # 0.3 10*3/uL (1.4-4.0); Lymphocytes % 1.7 % (21.3-54.2); Mean Corpuscular HGB Conc 31.7 GM/DL (32-36); Mean Corpuscular Volume 92.9 FL (87-102); Mean Platelet Volume 10.6 FL (9.6-12.0); Monocytes % 3.3 % (1.7-12.7); NRBC # 0.02 10*3/uL; Neutrophils % 85.2 % (38.7-73.9); Platelet Count 236 T/CUMM (130-400); Red Blood Count 3.39 MC/CUMM (3.8-5.5); Red Cell Distribution Width 14.6 % (9.3-17.3); White Blood Count 15.5 T/CUMM (4-12)
[2021-03-10 05:37] LABS: Band Neutrophils 1 % (0-10); Hypochromasia 1+; Lymphocytes 1 % (20-55); Microcytosis 1+; Platelet Estimate Adequate; Segmented Neutrophils 96 % (50-85); Total Cells Counted 100
[2021-03-10 05:44] LABS: Albumin 1.2 G/DL (3.4-5.0); Potassium 4.4 MMOL/L (3.5-5.1); Total Protein 4.5 G/DL (6.4-8.2)
[2021-03-10] MEDS: METHOCARBAMOL INJ 500 MG in SODIUM CHLORIDE 0.9% 100 ML IV SCH ×2 (05:49→18:09)
[2021-03-10] MEDS: ACYCLOVIR 5% OINT 15 GM TUBE TOP SCH ×5 (05:50→21:28)
[2021-03-10] MEDS: LACTATED RINGERS 1,000 ML IV SCH ×2 (05:50→19:00)
[2021-03-10] MEDS: LEVOTHYROXINE 100 MCG TABLET PO SCH (06:27)
[2021-03-10] MEDS: DORNASE ALFA 2.5 MG/2.5 ML VIAL RESP TX SCH ×3 (07:12→19:15)
[2021-03-10] MEDS: HYDROmorphone 2 MG/1 ML VIAL IV PRN ×2 (07:55→14:56)
[2021-03-10] MEDS: ONDANSETRON 4 MG/2 ML VIAL IV PRN (07:58)
[2021-03-10] MEDS ORDERED: HEPARIN/NACL 0.9% 2 UNITS/ML 1,000 UNIT/500 ML BAG IV ONE (09:17)
[2021-03-10] MEDS ORDERED: ALBUMIN 5% 12.5 GM/250 ML VIAL IV ONE (09:18)
[2021-03-10] MEDS ORDERED: PHENYLEPHRINE DRIP 20 MG/250 ML PREMIX IV ONE (09:18)
[2021-03-10] MEDS ORDERED: SODIUM CHLORIDE 0.9% 1,000 ML IV PRN ×2 (09:34→09:38)
[2021-03-10] MEDS ORDERED: MIDAZOLAM 2 MG/2 ML VIAL ONE (09:48)
[2021-03-10] MEDS ORDERED: fentaNYL 250 MCG/5 ML VIAL ONE ×2 (09:48→12:16)
[2021-03-10] MEDS ORDERED: VECURONIUM 10 MG VIAL IV ONE ×2 (09:48)
[2021-03-10] MEDS ORDERED: CALCIUM CHLORIDE 1,000 MG/10 ML VIAL IV ONE (09:49)
[2021-03-10] MEDS ORDERED: SODIUM BICARBONATE 50 MEQ/50 ML VIAL IV ONE (09:49)
[2021-03-10] MEDS: FERROUS SULFATE 325 MG TABLET PO SCH (10:03)
[2021-03-10] MEDS: PANTOPRAZOLE 40 MG VIAL IV SCH ×2 (10:09→21:26)
[2021-03-10] MEDS: AMINOPHYLLINE 500 MG in SODIUM CHLORIDE 0.9% 480 ML IV SCH (10:09)
[2021-03-10] MEDS ORDERED: SEVOFLURANE 1 UNIT/15 MINUTE INH ONE ×5 (12:13→12:16)
[2021-03-10] MEDS ORDERED: ETOMIDATE 40 MG/20 ML VIAL IV ONE (12:15)
[2021-03-10] MEDS ORDERED: propofoL 200 MG/20 ML VIAL IV ONE (12:15)
[2021-03-10] MEDS ORDERED: SUCCINYLCHOLINE 200 MG/10 ML VIAL ONE (12:16)
[2021-03-10] MEDS ORDERED: LACTATED RINGERS 2,000 ML IV ONE (12:16)
[2021-03-10] MEDS ORDERED: ONDANSETRON 4 MG/2 ML VIAL ONE (12:16)
[2021-03-10 12:28] LABS: ABG Base Excess -3.3 MMOL/L (-2.5-2.5); ABG HCO3 21.7 MMOL/L (20-26); ABG PCO2 46.8 MM HG (35-48); ABG PH 7.303 (7.35-7.45); ABG TCO2 21.4 MMOL/L (23-27); Glucose Heart Surgery 173 MG/DL (74-106); Hematocrit Heart Surgery 29.5 PERCENT (37-47); Hemoglobin Heart Surgery 9.5 G/DL (12.0-16.0); Ionized Calcium Arterial 1.16 MMOL/L (1.21-1.46); Potassium Heart/CVR 4.4 MMOL/L (3.5-5.1); Sodium Heart/CVR 131 MMOL/L (135-145)
[2021-03-10 12:29] LABS: PCO2 Patient Temp Arterial 42.5 MMHG; PH Patient Temp Arterial 7.331; Patient Temperature 35 CELCIUS
[2021-03-10] MEDS: hydrALAZINE 20 MG/1 ML VIAL IV PRN (14:40)
[2021-03-10] MEDS: methylPREDNISolone SOD SUC 40 MG/1 ML VIAL IV SCH (14:58)
[2021-03-10 15:32] LABS: ABG HCO3 18.8 MMOL/L (20-26); ABG Oxygen Saturation 98.8 % (95-100); ABG PCO2 65.2 MM HG (35-48); ABG TCO2 21.4 MMOL/L (23-27)
[2021-03-10 15:34] LABS: ABG PH 7.157 (7.35-7.45)
[2021-03-10 16:17] LABS: Basophils # 0.1 10*3/uL (0.0-0.2); Basophils % 0.7 % (0.0-0.8); Eosinophils % 0.1 % (0.00-10.9); Hematocrit 36.5 VOL% (35.7-47.0); Hemoglobin 11.3 GM/DL (12.0-16.0); Immature Granulocytes % 5.8 %; Immature Granulocytes Absolute 0.71 #; Lymphocytes # 0.7 10*3/uL (1.4-4.0); Lymphocytes % 5.4 % (21.3-54.2); Mean Corpuscular Volume 95.1 FL (87-102); Mean Platelet Volume 10.7 FL (9.6-12.0); Platelet Count 277 T/CUMM (130-400); Red Blood Count 3.84 MC/CUMM (3.8-5.5); White Blood Count 12.1 T/CUMM (4-12)
[2021-03-10 16:28] LABS: ABG Base Excess -7.4 MMOL/L (-2.5-2.5); ABG HCO3 18.5 MMOL/L (20-26); ABG Oxygen Saturation 99.1 % (95-100); ABG PCO2 53.4 MM HG (35-48); ABG TCO2 19.2 MMOL/L (23-27)
[2021-03-10 16:39] LABS: Band Neutrophils 30 % (0-10); Calcium 7.5 MG/DL (8.5-10.1); Lymphocytes 4 % (20-55); Metamyelocytes 2 %; Osmolality,Calculated 288.1 MOS/KG (273-304); Platelet Estimate Adequate; Potassium 4.4 MMOL/L (3.5-5.1); Segmented Neutrophils 62 % (50-85); Total Cells Counted 100
[2021-03-10] MEDS ORDERED: ALBUMIN 25% 25 GM/100 ML VIAL IV ONE (16:39)
[2021-03-10] MEDS ORDERED: FUROSEMIDE 20 MG/2 ML VIAL IV ONE (16:39)
[2021-03-10] MEDS: MICAFUNGIN 100 MG in SODIUM CHLORIDE 0.9% 100 ML IV SCH (17:05)
[2021-03-10] MEDS: ZINC/COPPER/MANGANESE/SELENIUM 1 ML, MULTIVITAMIN INJ 10 ML in AMINO ACIDS/DEXT/LYTES 5... IV SCH (17:54)
[2021-03-11] MEDS: methylPREDNISolone SOD SUC 40 MG/1 ML VIAL IV SCH ×3 (00:05→23:45)
[2021-03-11] MEDS: IPRATROPIUM 500 MCG/2.5 ML NEB RESP TX SCH ×4 (01:20→18:42)
[2021-03-11] MEDS: METHOCARBAMOL INJ 500 MG in SODIUM CHLORIDE 0.9% 100 ML IV SCH ×3 (02:00→18:26)
[2021-03-11] MEDS: HYDROmorphone 2 MG/1 ML VIAL IV PRN ×3 (02:44→22:45)
[2021-03-11] MEDS: MEROPENEM 500 MG in SODIUM CHLORIDE 0.9% 100 ML IV SCH ×3 (04:00→18:16)
[2021-03-11 04:15] LABS: ABG Base Excess -2.8 MMOL/L (-2.5-2.5); ABG Oxygen Saturation 99.8 % (95-100); ABG PCO2 36.3 MM HG (35-48); ABG PH 7.386 (7.35-7.45)
[2021-03-11 04:27] LABS: Basophils # 0.1 10*3/uL (0.0-0.2); Basophils % 0.4 % (0.0-0.8); Hematocrit 29.1 VOL% (35.7-47.0); Immature Granulocytes % 6.4 %; Immature Granulocytes Absolute 1.03 #; Lymphocytes # 0.2 10*3/uL (1.4-4.0); Lymphocytes % 1.4 % (21.3-54.2); Mean Corpuscular HGB Conc 31.6 GM/DL (32-36); Mean Corpuscular Volume 93.3 FL (87-102); Mean Platelet Volume 10.8 FL (9.6-12.0); Monocytes % 2.2 % (1.7-12.7); NRBC # 0.02 10*3/uL; Neutrophils % 89.6 % (38.7-73.9); Red Blood Count 3.12 MC/CUMM (3.8-5.5); Red Cell Distribution Width 14.8 % (9.3-17.3)
[2021-03-11] MEDS: metroNIDAZOLE INJ 500 MG/100 ML PREMIX IV SCH ×3 (04:30→21:30)
[2021-03-11 04:32] LABS: Albumin 1.7 G/DL (3.4-5.0); Bilirubin,Total 0.7 MG/DL (0.2-1.0); Calcium 7.3 MG/DL (8.5-10.1); Osmolality,Calculated 293.7 MOS/KG (273-304); Potassium 4.3 MMOL/L (3.5-5.1); Total Protein 4.4 G/DL (6.4-8.2)
[2021-03-11 04:37] LABS: Hemoglobin 9.2 GM/DL (12.0-16.0); White Blood Count 16.1 T/CUMM (4-12)
[2021-03-11 04:38] LABS: Platelet Count 204 T/CUMM (130-400)
[2021-03-11 04:41] LABS: Band Neutrophils 12 % (0-10); Lymphocytes 2 % (20-55); Segmented Neutrophils 82 % (50-85); Total Cells Counted 100
[2021-03-11 04:42] LABS: Burr Cells Slight; Hypochromasia 1+; Microcytosis 1+
[2021-03-11] MEDS: ACYCLOVIR 5% OINT 15 GM TUBE TOP SCH ×5 (05:31→22:45)
[2021-03-11] MEDS: LEVOTHYROXINE 100 MCG TABLET PO SCH (06:33)
[2021-03-11] MEDS: DORNASE ALFA 2.5 MG/2.5 ML VIAL RESP TX SCH ×2 (07:44→18:42)
[2021-03-11] MEDS: PANTOPRAZOLE 40 MG VIAL IV SCH ×2 (09:23→21:40)
[2021-03-11] MEDS: FERROUS SULFATE 325 MG TABLET PO SCH (09:24)
[2021-03-11] MEDS: LACTATED RINGERS 1,000 ML IV SCH (15:05)
[2021-03-11] MEDS: FAT EMULSION 20% 250 ML IV SCH (15:45)
[2021-03-11] MEDS: AMINOPHYLLINE 500 MG in SODIUM CHLORIDE 0.9% 480 ML IV SCH (16:37)
[2021-03-11] MEDS: MICAFUNGIN 100 MG in SODIUM CHLORIDE 0.9% 100 ML IV SCH (16:40)
[2021-03-11] MEDS: ZINC/COPPER/MANGANESE/SELENIUM 1 ML, MULTIVITAMIN INJ 10 ML in AMINO ACIDS/DEXT/LYTES 5... IV SCH (16:42)
[2021-03-12] MEDS: IPRATROPIUM 500 MCG/2.5 ML NEB RESP TX SCH ×4 (00:15→19:12)
[2021-03-12] MEDS: METHOCARBAMOL INJ 500 MG in SODIUM CHLORIDE 0.9% 100 ML IV SCH ×3 (02:00→18:30)
[2021-03-12] MEDS: MEROPENEM 500 MG in SODIUM CHLORIDE 0.9% 100 ML IV SCH ×3 (03:30→18:32)
[2021-03-12 03:38] LABS: ABG Base Excess -5.3 MMOL/L (-2.5-2.5); ABG PH 7.339 (7.35-7.45); ABG PO2 217.5 MM HG (80-95); ABG TCO2 21.2 MMOL/L (23-27)
[2021-03-12 03:40] LABS: Basophils % 0.1 % (0.0-0.8); Hematocrit 27.2 VOL% (35.7-47.0); Hemoglobin 8.8 GM/DL (12.0-16.0); Immature Granulocytes % 14.3 %; Immature Granulocytes Absolute 3.68 #; Lymphocytes # 0.5 10*3/uL (1.4-4.0); Mean Corpuscular HGB Conc 32.4 GM/DL (32-36); Mean Corpuscular Volume 92.8 FL (87-102); Mean Platelet Volume 11.1 FL (9.6-12.0); Monocytes % 2.4 % (1.7-12.7); NRBC # 0.03 10*3/uL; Neutrophils % 81.2 % (38.7-73.9); Platelet Count 190 T/CUMM (130-400); Red Blood Count 2.93 MC/CUMM (3.8-5.5); Red Cell Distribution Width 15.3 % (9.3-17.3); White Blood Count 25.8 T/CUMM (4-12)
[2021-03-12] MEDS: metroNIDAZOLE INJ 500 MG/100 ML PREMIX IV SCH (04:00)
[2021-03-12 04:01] LABS: Albumin 1.3 G/DL (3.4-5.0); Bilirubin,Total 0.7 MG/DL (0.2-1.0); Calcium 7.2 MG/DL (8.5-10.1); Osmolality,Calculated 292.7 MOS/KG (273-304); Potassium 4.6 MMOL/L (3.5-5.1); Total Protein 4.3 G/DL (6.4-8.2)
[2021-03-12 04:24] LABS: Band Neutrophils 10 % (0-10); Lymphocytes 3 % (20-55); Myelocytes 2 %; Segmented Neutrophils 81 % (50-85); Total Cells Counted 100
[2021-03-12 04:25] LABS: Hypochromasia Slight; Microcytosis 1+
[2021-03-12 04:26] LABS: Platelet Estimate Adequate
[2021-03-12] MEDS: ACYCLOVIR 5% OINT 15 GM TUBE TOP SCH ×5 (06:11→22:04)
[2021-03-12] MEDS: LEVOTHYROXINE 100 MCG TABLET PO SCH (06:17)
[2021-03-12] MEDS: DORNASE ALFA 2.5 MG/2.5 ML VIAL RESP TX SCH ×2 (07:24→19:12)
[2021-03-12] MEDS: PANTOPRAZOLE 40 MG VIAL IV SCH ×2 (08:58→20:41)
[2021-03-12] MEDS: FERROUS SULFATE 325 MG TABLET PO SCH (09:05)
[2021-03-12] MEDS: VANCOMYCIN INJ 1,000 MG in SODIUM CHLORIDE 0.9% 250 ML IV SCH ×2 (09:06→20:41)
[2021-03-12] MEDS: HYDROmorphone 2 MG/1 ML VIAL IV PRN (09:27)
[2021-03-12] MEDS ORDERED: METOPROLOL TARTRATE 5 MG/5 ML VIAL IV ONE (10:05)
[2021-03-12] MEDS ORDERED: LORazepam 2 MG/1 ML VIAL IV ONE (10:19)
[2021-03-12] MEDS ORDERED: HYDROmorphone 2 MG/1 ML VIAL IV ONE (10:45)
[2021-03-12] MEDS: methylPREDNISolone SOD SUC 40 MG/1 ML VIAL IV SCH ×2 (11:02→23:29)
[2021-03-12] MEDS: LACTATED RINGERS 1,000 ML IV SCH (11:12)
[2021-03-12] MEDS: ZINC/COPPER/MANGANESE/SELENIUM 1 ML, MULTIVITAMIN INJ 10 ML in AMINO ACIDS/DEXT/LYTES 5... IV SCH (17:16)
[2021-03-12] MEDS: MICAFUNGIN 100 MG in SODIUM CHLORIDE 0.9% 100 ML IV SCH (17:17)
[2021-03-12] MEDS: AMINOPHYLLINE 500 MG in SODIUM CHLORIDE 0.9% 480 ML IV SCH (22:04)
[2021-03-13] MEDS: IPRATROPIUM 500 MCG/2.5 ML NEB RESP TX SCH ×4 (00:02→19:32)
[2021-03-13] MEDS: MEROPENEM 500 MG in SODIUM CHLORIDE 0.9% 100 ML IV SCH ×3 (03:38→18:25)
[2021-03-13] MEDS: METHOCARBAMOL INJ 500 MG in SODIUM CHLORIDE 0.9% 100 ML IV SCH ×3 (03:39→18:24)
[2021-03-13 03:40] LABS: ABG Base Excess -5.5 MMOL/L (-2.5-2.5); ABG Oxygen Saturation 99.7 % (95-100); ABG PH 7.344 (7.35-7.45)
[2021-03-13 03:45] LABS: Basophils # 0.1 10*3/uL (0.0-0.2); Basophils % 0.4 % (0.0-0.8); Hematocrit 26.1 VOL% (35.7-47.0); Hemoglobin 8.2 GM/DL (12.0-16.0); Immature Granulocytes % 12.5 %; Immature Granulocytes Absolute 3.17 #; Lymphocytes # 0.4 10*3/uL (1.4-4.0); Lymphocytes % 1.4 % (21.3-54.2); Mean Corpuscular HGB Conc 31.4 GM/DL (32-36); Mean Corpuscular Volume 94.6 FL (87-102); Mean Platelet Volume 11.2 FL (9.6-12.0); NRBC # 0.02 10*3/uL; Neutrophils % 83.7 % (38.7-73.9); Platelet Count 182 T/CUMM (130-400); Red Blood Count 2.76 MC/CUMM (3.8-5.5); Red Cell Distribution Width 15.5 % (9.3-17.3); White Blood Count 25.5 T/CUMM (4-12)
[2021-03-13 04:00] LABS: Albumin 1.1 G/DL (3.4-5.0); Bilirubin,Total 0.7 MG/DL (0.2-1.0); Calcium 7.6 MG/DL (8.5-10.1); Osmolality,Calculated 294.8 MOS/KG (273-304); Potassium 4.9 MMOL/L (3.5-5.1); Total Protein 4.5 G/DL (6.4-8.2)
[2021-03-13] MEDS: ACYCLOVIR 5% OINT 15 GM TUBE TOP SCH ×5 (06:05→23:17)
[2021-03-13] MEDS: LEVOTHYROXINE 100 MCG TABLET PO SCH (06:06)
[2021-03-13 06:57] LABS: Band Neutrophils 3 % (0-10); Lymphocytes 5 % (20-55); Promyelocytes 6 %; Segmented Neutrophils 85 % (50-85); Total Cells Counted 100
[2021-03-13 06:58] LABS: Microcytosis 1+; Platelet Estimate Decreased; Spherocytes Slight
[2021-03-13] MEDS: DORNASE ALFA 2.5 MG/2.5 ML VIAL RESP TX SCH ×2 (07:11→19:38)
[2021-03-13] MEDS: LACTATED RINGERS 1,000 ML IV SCH (07:18)
[2021-03-13] MEDS: VANCOMYCIN INJ 1,000 MG in SODIUM CHLORIDE 0.9% 250 ML IV SCH ×2 (09:01→20:23)
[2021-03-13] MEDS: PANTOPRAZOLE 40 MG VIAL IV SCH ×2 (09:03→20:24)
[2021-03-13] MEDS: FERROUS SULFATE 325 MG TABLET PO SCH (09:03)
[2021-03-13] MEDS: methylPREDNISolone SOD SUC 40 MG/1 ML VIAL IV SCH ×2 (11:38→23:29)
[2021-03-13] MEDS: FAT EMULSION 20% 250 ML IV SCH (14:43)
[2021-03-13] MEDS: MICAFUNGIN 100 MG in SODIUM CHLORIDE 0.9% 100 ML IV SCH (17:22)
[2021-03-13] MEDS: ZINC/COPPER/MANGANESE/SELENIUM 1 ML, MULTIVITAMIN INJ 10 ML in AMINO ACIDS/DEXT/LYTES 5... IV SCH (17:26)
[2021-03-13] MEDS: AMINOPHYLLINE 500 MG in SODIUM CHLORIDE 0.9% 480 ML IV SCH (18:27)
[2021-03-13] MEDS: INSULIN GLARGINE 100 UNIT/ML SUBCUT SCH (20:24)
[2021-03-14] MEDS: IPRATROPIUM 500 MCG/2.5 ML NEB RESP TX SCH ×4 (00:39→19:41)
[2021-03-14] MEDS: METHOCARBAMOL INJ 500 MG in SODIUM CHLORIDE 0.9% 100 ML IV SCH ×3 (01:37→18:26)
[2021-03-14] MEDS: MEROPENEM 500 MG in SODIUM CHLORIDE 0.9% 100 ML IV SCH ×3 (02:54→18:25)
[2021-03-14] MEDS: LACTATED RINGERS 1,000 ML IV SCH (03:30)
[2021-03-14 03:40] LABS: ABG Base Excess -7.7 MMOL/L (-2.5-2.5); ABG HCO3 18.3 MMOL/L (20-26); ABG Oxygen Saturation 99.3 % (95-100); ABG PCO2 33.2 MM HG (35-48); ABG PH 7.328 (7.35-7.45); ABG TCO2 15.5 MMOL/L (23-27)
[2021-03-14 03:48] LABS: Basophils % 0.1 % (0.0-0.8); Hematocrit 28.2 VOL% (35.7-47.0); Hemoglobin 9.1 GM/DL (12.0-16.0); Immature Granulocytes % 13.3 %; Immature Granulocytes Absolute 4.77 #; Lymphocytes # 0.4 10*3/uL (1.4-4.0); Lymphocytes % 1.1 % (21.3-54.2); Mean Corpuscular HGB Conc 32.3 GM/DL (32-36); Mean Corpuscular Volume 92.8 FL (87-102); Mean Platelet Volume 11.2 FL (9.6-12.0); Monocytes % 1.9 % (1.7-12.7); Neutrophils % 83.6 % (38.7-73.9); Platelet Count 201 T/CUMM (130-400); Red Blood Count 3.04 MC/CUMM (3.8-5.5); Red Cell Distribution Width 15.4 % (9.3-17.3)
[2021-03-14 04:08] LABS: Albumin 1.2 G/DL (3.4-5.0); Bilirubin,Total 0.6 MG/DL (0.2-1.0); Calcium 7.6 MG/DL (8.5-10.1); Osmolality,Calculated 296.5 MOS/KG (273-304); Potassium 4.7 MMOL/L (3.5-5.1); Total Protein 4.8 G/DL (6.4-8.2)
[2021-03-14 04:11] LABS: Band Neutrophils 7 % (0-10); Lymphocytes 1 % (20-55); Myelocytes 3 %; Platelet Estimate Adequate; Segmented Neutrophils 88 % (50-85); Total Cells Counted 100
[2021-03-14 04:12] LABS: Hypochromasia Slight; Microcytosis Slight
[2021-03-14] MEDS: LEVOTHYROXINE 100 MCG TABLET PO SCH (06:00)
[2021-03-14] MEDS: ACYCLOVIR 5% OINT 15 GM TUBE TOP SCH ×5 (06:00→22:20)
[2021-03-14] MEDS: DORNASE ALFA 2.5 MG/2.5 ML VIAL RESP TX SCH ×2 (07:26→19:41)
[2021-03-14] MEDS: VANCOMYCIN INJ 1,000 MG in SODIUM CHLORIDE 0.9% 250 ML IV SCH (09:03)
[2021-03-14] MEDS: PANTOPRAZOLE 40 MG VIAL IV SCH ×2 (09:37→20:18)
[2021-03-14] MEDS: FERROUS SULFATE 325 MG TABLET PO SCH (09:40)
[2021-03-14] MEDS: methylPREDNISolone SOD SUC 40 MG/1 ML VIAL IV SCH ×2 (11:19→22:22)
[2021-03-14] MEDS: ZINC/COPPER/MANGANESE/SELENIUM 1 ML, MULTIVITAMIN INJ 10 ML in AMINO ACIDS/DEXT/LYTES 5... IV SCH (17:16)
[2021-03-14] MEDS: MICAFUNGIN 100 MG in SODIUM CHLORIDE 0.9% 100 ML IV SCH (17:17)
[2021-03-14] MEDS: AMINOPHYLLINE 500 MG in SODIUM CHLORIDE 0.9% 480 ML IV SCH (18:26)
[2021-03-14] MEDS: INSULIN GLARGINE 100 UNIT/ML SUBCUT SCH (20:18)
[2021-03-14] MEDS ORDERED: VANCOMYCIN INJ 1,000 MG in SODIUM CHLORIDE 0.9% 250 ML IV SCH (21:00)
[2021-03-15] MEDS: LACTATED RINGERS 1,000 ML IV SCH ×2 (00:02→20:25)
[2021-03-15] MEDS: METHOCARBAMOL INJ 500 MG in SODIUM CHLORIDE 0.9% 100 ML IV SCH ×3 (01:30→18:23)
[2021-03-15] MEDS: IPRATROPIUM 500 MCG/2.5 ML NEB RESP TX SCH ×4 (01:40→19:55)
[2021-03-15] MEDS: MEROPENEM 500 MG in SODIUM CHLORIDE 0.9% 100 ML IV SCH ×2 (03:20→03:24)
[2021-03-15 03:36] LABS: Basophils % 0.1 % (0.0-0.8); Hematocrit 29.5 VOL% (35.7-47.0); Hemoglobin 9.4 GM/DL (12.0-16.0); Immature Granulocytes % 10.6 %; Immature Granulocytes Absolute 3.25 #; Lymphocytes # 0.4 10*3/uL (1.4-4.0); Lymphocytes % 1.2 % (21.3-54.2); Mean Corpuscular HGB Conc 31.9 GM/DL (32-36); Mean Corpuscular Volume 93.4 FL (87-102); Mean Platelet Volume 11.4 FL (9.6-12.0); Monocytes % 2.5 % (1.7-12.7); Neutrophils % 85.6 % (38.7-73.9); Platelet Count 211 T/CUMM (130-400); Red Blood Count 3.16 MC/CUMM (3.8-5.5); Red Cell Distribution Width 15.5 % (9.3-17.3); White Blood Count 30.6 T/CUMM (4-12)
[2021-03-15 03:37] LABS: ABG Base Excess -9.5 MMOL/L (-2.5-2.5); ABG HCO3 15.6 MMOL/L (20-26); ABG Oxygen Saturation 98.4 % (95-100); ABG PCO2 31.4 MM HG (35-48); ABG PH 7.314 (7.35-7.45); ABG PO2 129.5 MM HG (80-95); ABG TCO2 16.6 MMOL/L (23-27)
[2021-03-15 03:51] LABS: Albumin 1.2 G/DL (3.4-5.0); Bilirubin,Total 0.9 MG/DL (0.2-1.0); Calcium 8.1 MG/DL (8.5-10.1); Osmolality,Calculated 295.7 MOS/KG (273-304); Potassium 5.1 MMOL/L (3.5-5.1); Total Protein 5.2 G/DL (6.4-8.2)
[2021-03-15 04:16] LABS: Band Neutrophils 5 % (0-10); Hypochromasia 1+; Lymphocytes 4 % (20-55); Microcytosis 1+; Platelet Estimate Adequate; Segmented Neutrophils 87 % (50-85); Total Cells Counted 100
[2021-03-15] MEDS: ACYCLOVIR 5% OINT 15 GM TUBE TOP SCH ×5 (05:52→21:20)
[2021-03-15] MEDS: DORNASE ALFA 2.5 MG/2.5 ML VIAL RESP TX SCH ×2 (06:50→19:49)
[2021-03-15] MEDS: LEVOTHYROXINE 100 MCG TABLET PO SCH (07:00)
[2021-03-15] MEDS: HYDROmorphone 2 MG/1 ML VIAL IV PRN (08:40)
[2021-03-15] MEDS: FERROUS SULFATE 325 MG TABLET PO SCH (10:07)
[2021-03-15] MEDS: PANTOPRAZOLE 40 MG VIAL IV SCH ×2 (10:08→21:20)
[2021-03-15] MEDS: methylPREDNISolone SOD SUC 40 MG/1 ML VIAL IV SCH (14:23)
[2021-03-15] MEDS: FAT EMULSION 20% 250 ML IV SCH (17:30)
[2021-03-15] MEDS: ZINC/COPPER/MANGANESE/SELENIUM 1 ML, MULTIVITAMIN INJ 10 ML in AMINO ACIDS/DEXT/LYTES 5... IV SCH (17:30)
[2021-03-15] MEDS: MICAFUNGIN 100 MG in SODIUM CHLORIDE 0.9% 100 ML IV SCH (18:51)
[2021-03-15] MEDS: AMINOPHYLLINE 500 MG in SODIUM CHLORIDE 0.9% 480 ML IV SCH (18:52)
[2021-03-15] MEDS: INSULIN GLARGINE 100 UNIT/ML SUBCUT SCH (21:20)
[2021-03-16] MEDS: IPRATROPIUM 500 MCG/2.5 ML NEB RESP TX SCH ×4 (02:23→19:00)
[2021-03-16] MEDS: methylPREDNISolone SOD SUC 40 MG/1 ML VIAL IV SCH ×2 (03:20→16:24)
[2021-03-16] MEDS: METHOCARBAMOL INJ 500 MG in SODIUM CHLORIDE 0.9% 100 ML IV SCH ×3 (03:21→18:30)
[2021-03-16 04:33] LABS: ABG Base Excess -10.2 MMOL/L (-2.5-2.5); ABG HCO3 16.7 MMOL/L (20-26); ABG Oxygen Saturation 99.2 % (95-100); ABG PCO2 35.4 MM HG (35-48); ABG PH 7.269 (7.35-7.45); ABG TCO2 13.5 MMOL/L (23-27)
[2021-03-16 04:37] LABS: Basophils # 0.1 10*3/uL (0.0-0.2); Basophils % 0.3 % (0.0-0.8); Hematocrit 25.4 VOL% (35.7-47.0); Hemoglobin 7.6 GM/DL (12.0-16.0); Immature Granulocytes % 7.2 %; Lymphocytes # 0.3 10*3/uL (1.4-4.0); Lymphocytes % 0.9 % (21.3-54.2); Mean Corpuscular HGB Conc 29.9 GM/DL (32-36); Mean Corpuscular Volume 97.7 FL (87-102); Mean Platelet Volume 11.5 FL (9.6-12.0); Monocytes % 1.9 % (1.7-12.7); Neutrophils % 89.7 % (38.7-73.9); Platelet Count 171 T/CUMM (130-400); Red Cell Distribution Width 15.7 % (9.3-17.3); White Blood Count 29.1 T/CUMM (4-12)
[2021-03-16 05:03] LABS: Band Neutrophils 6 % (0-10); Eosinophils 1 % (0-10); Lymphocytes 1 % (20-55); Platelet Estimate Adequate; Segmented Neutrophils 90 % (50-85); Total Cells Counted 100
[2021-03-16 05:04] LABS: Hypochromasia Slight; Microcytosis Slight
[2021-03-16 05:28] LABS: Albumin 0.9 G/DL (3.4-5.0); Calcium 7.7 MG/DL (8.5-10.1); Osmolality,Calculated 302.3 MOS/KG (273-304); Potassium 4.9 MMOL/L (3.5-5.1); Total Protein 4.3 G/DL (6.4-8.2)
[2021-03-16] MEDS: ACYCLOVIR 5% OINT 15 GM TUBE TOP SCH ×5 (05:43→23:53)
[2021-03-16] MEDS: DORNASE ALFA 2.5 MG/2.5 ML VIAL RESP TX SCH ×2 (07:01→19:00)
[2021-03-16] MEDS ORDERED: SODIUM BICARBONATE 50 MEQ/50 ML VIAL IV ONE (07:51)
[2021-03-16] MEDS: PANTOPRAZOLE 40 MG VIAL IV SCH ×2 (08:05→21:26)
[2021-03-16] MEDS: FERROUS SULFATE 325 MG TABLET PO SCH (08:06)
[2021-03-16] MEDS: LEVOTHYROXINE 100 MCG TABLET PO SCH (08:09)
[2021-03-16] MEDS ORDERED: ALBUMIN 25% 25 GM/100 ML VIAL IV ONE (09:44)
[2021-03-16] MEDS: ZINC/COPPER/MANGANESE/SELENIUM 1 ML, MULTIVITAMIN INJ 10 ML in AMINO ACIDS/DEXT/LYTES 5... IV SCH (16:25)
[2021-03-16] MEDS: LACTATED RINGERS 1,000 ML IV SCH (16:25)
[2021-03-16] MEDS: MICAFUNGIN 100 MG in SODIUM CHLORIDE 0.9% 100 ML IV SCH (18:30)
[2021-03-16] MEDS: AMINOPHYLLINE 500 MG in SODIUM CHLORIDE 0.9% 480 ML IV SCH (18:31)
[2021-03-16] MEDS: INSULIN GLARGINE 100 UNIT/ML SUBCUT SCH (21:26)
[2021-03-17] MEDS: PHENYLEPHRINE DRIP 40 MG/250 ML PREMIX IV PRN (00:27)
[2021-03-17] MEDS: INSULIN REGULAR 100 UNIT/ML SUBCUT SCH ×5 (00:41→23:53)
[2021-03-17] MEDS: IPRATROPIUM 500 MCG/2.5 ML NEB RESP TX SCH ×4 (00:50→19:53)
[2021-03-17] MEDS: METHOCARBAMOL INJ 500 MG in SODIUM CHLORIDE 0.9% 100 ML IV SCH ×3 (02:30→17:20)
[2021-03-17] MEDS: methylPREDNISolone SOD SUC 40 MG/1 ML VIAL IV SCH ×2 (02:30→14:48)
[2021-03-17 04:26] LABS: Basophils # 0.2 10*3/uL (0.0-0.2); Basophils % 0.5 % (0.0-0.8); Hemoglobin 9.8 GM/DL (12.0-16.0); Immature Granulocytes % 8.2 %; Immature Granulocytes Absolute 2.37 #; Lymphocytes # 0.3 10*3/uL (1.4-4.0); Lymphocytes % 0.9 % (21.3-54.2); Mean Corpuscular HGB Conc 31.6 GM/DL (32-36); Mean Platelet Volume 11.7 FL (9.6-12.0); Monocytes % 1.4 % (1.7-12.7); Platelet Count 178 T/CUMM (130-400); Red Blood Count 3.37 MC/CUMM (3.8-5.5); Red Cell Distribution Width 16.7 % (9.3-17.3); White Blood Count 28.9 T/CUMM (4-12)
[2021-03-17 04:30] LABS: ABG Base Excess -9.2 MMOL/L (-2.5-2.5); ABG HCO3 17.1 MMOL/L (20-26); ABG Oxygen Saturation 98.4 % (95-100); ABG PCO2 36.8 MM HG (35-48); ABG PH 7.274 (7.35-7.45); ABG TCO2 15.5 MMOL/L (23-27)
[2021-03-17 04:39] LABS: Albumin 1.5 G/DL (3.4-5.0); Calcium 8.1 MG/DL (8.5-10.1); Osmolality,Calculated 303.1 MOS/KG (273-304); Total Protein 4.9 G/DL (6.4-8.2)
[2021-03-17 04:49] LABS: Band Neutrophils 1 % (0-10); Lymphocytes 2 % (20-55); Platelet Estimate Adequate; Segmented Neutrophils 95 % (50-85); Total Cells Counted 100
[2021-03-17 04:50] LABS: Hypochromasia 1+; Microcytosis 1+
[2021-03-17] MEDS: ACYCLOVIR 5% OINT 15 GM TUBE TOP SCH ×5 (05:48→23:54)
[2021-03-17] MEDS: DORNASE ALFA 2.5 MG/2.5 ML VIAL RESP TX SCH ×2 (07:27→19:53)
[2021-03-17] MEDS: AMINOPHYLLINE 500 MG in SODIUM CHLORIDE 0.9% 480 ML IV SCH (07:30)
[2021-03-17] MEDS: PANTOPRAZOLE 40 MG VIAL IV SCH ×2 (08:17→21:50)
[2021-03-17] MEDS: FERROUS SULFATE 325 MG TABLET PO SCH (08:17)
[2021-03-17] MEDS: LEVOTHYROXINE 100 MCG TABLET PO SCH (08:17)
[2021-03-17] MEDS ORDERED: SODIUM BICARBONATE 50 MEQ/50 ML VIAL IV ONE (09:57)
[2021-03-17] MEDS: LACTATED RINGERS 1,000 ML IV SCH (12:41)
[2021-03-17 13:31] LABS: ABG Base Excess -8.4 MMOL/L (-2.5-2.5); ABG HCO3 17.6 MMOL/L (20-26); ABG Oxygen Saturation 96.2 % (95-100); ABG PCO2 42.2 MM HG (35-48); ABG PO2 89.3 MM HG (80-95); ABG TCO2 17.2 MMOL/L (23-27)
[2021-03-17] MEDS: FAT EMULSION 20% 250 ML IV SCH (14:53)
[2021-03-17] MEDS: ZINC/COPPER/MANGANESE/SELENIUM 1 ML, MULTIVITAMIN INJ 10 ML in AMINO ACIDS/DEXT/LYTES 5... IV SCH (17:20)
[2021-03-17] MEDS: MICAFUNGIN 100 MG in SODIUM CHLORIDE 0.9% 100 ML IV SCH (18:26)
[2021-03-17] MEDS: INSULIN GLARGINE 100 UNIT/ML SUBCUT SCH (21:58)
[2021-03-18] MEDS: IPRATROPIUM 500 MCG/2.5 ML NEB RESP TX SCH ×4 (01:06→20:02)
[2021-03-18] MEDS: methylPREDNISolone SOD SUC 40 MG/1 ML VIAL IV SCH ×2 (01:32→14:30)
[2021-03-18] MEDS: METHOCARBAMOL INJ 500 MG in SODIUM CHLORIDE 0.9% 100 ML IV SCH ×3 (01:43→17:50)
[2021-03-18 04:21] LABS: ABG Base Excess -10.7 MMOL/L (-2.5-2.5); ABG Oxygen Saturation 96.5 % (95-100); ABG PCO2 44.1 MM HG (35-48); ABG PO2 96.3 MM HG (80-95); ABG TCO2 15.7 MMOL/L (23-27)
[2021-03-18 04:23] LABS: ABG PH 7.201 (7.35-7.45)
[2021-03-18] MEDS ORDERED: SODIUM BICARBONATE 50 MEQ/50 ML VIAL IV ONE ×3 (04:30→14:20)
[2021-03-18 04:40] LABS: Basophils # 0.1 10*3/uL (0.0-0.2); Basophils % 0.4 % (0.0-0.8); Hematocrit 29.8 VOL% (35.7-47.0); Immature Granulocytes % 8.9 %; Immature Granulocytes Absolute 2.22 #; Lymphocytes # 0.3 10*3/uL (1.4-4.0); Lymphocytes % 1.3 % (21.3-54.2); Mean Corpuscular HGB Conc 30.2 GM/DL (32-36); Mean Corpuscular Volume 95.5 FL (87-102); Mean Platelet Volume 11.7 FL (9.6-12.0); Monocytes % 1.4 % (1.7-12.7); NRBC # 0.04 10*3/uL; Platelet Count 172 T/CUMM (130-400); Red Blood Count 3.12 MC/CUMM (3.8-5.5); Red Cell Distribution Width 17.1 % (9.3-17.3); White Blood Count 25.1 T/CUMM (4-12)
[2021-03-18] MEDS: ACYCLOVIR 5% OINT 15 GM TUBE TOP SCH ×5 (05:00→21:39)
[2021-03-18 05:03] LABS: Band Neutrophils 8 % (0-10); Hypochromasia 1+; Lymphocytes 5 % (20-55); Microcytosis 1+; Nucleated Red Blood Cells 1 (0-5); Platelet Estimate Adequate; Segmented Neutrophils 85 % (50-85); Total Cells Counted 100
[2021-03-18] MEDS: INSULIN REGULAR 100 UNIT/ML SUBCUT SCH ×4 (05:55→23:48)
[2021-03-18 06:07] LABS: Calcium 7.7 MG/DL (8.5-10.1); Potassium 5.3 MMOL/L (3.5-5.1)
[2021-03-18] MEDS: DORNASE ALFA 2.5 MG/2.5 ML VIAL RESP TX SCH ×2 (07:40→20:02)
[2021-03-18] MEDS: FERROUS SULFATE 325 MG TABLET PO SCH (08:10)
[2021-03-18] MEDS: LEVOTHYROXINE 100 MCG TABLET PO SCH (08:10)
[2021-03-18] MEDS: PANTOPRAZOLE 40 MG VIAL IV SCH ×2 (08:11→21:26)
[2021-03-18] MEDS: LACTATED RINGERS 1,000 ML IV SCH (09:10)
[2021-03-18] MEDS ORDERED: FUROSEMIDE 40 MG/4 ML VIAL IV ONE (10:09)
[2021-03-18] MEDS: SODIUM BICARB INJ 100 MEQ in DEXTROSE 5% 1,000 ML IV SCH (10:30)
[2021-03-18] MEDS: AMINOPHYLLINE 500 MG in SODIUM CHLORIDE 0.9% 480 ML IV SCH (11:18)
[2021-03-18] MEDS ORDERED: RACEPINEPHRINE 0.5 ML NEB RESP TX SCH (13:00)
[2021-03-18] MEDS: RACEPINEPHRINE 0.5 ML NEB RESP TX SCH ×2 (13:20→20:02)
[2021-03-18] MEDS: PHENYLEPHRINE DRIP 40 MG/250 ML PREMIX IV PRN (13:38)
[2021-03-18 13:53] LABS: ABG Base Excess -8.8 MMOL/L (-2.5-2.5); ABG HCO3 17.3 MMOL/L (20-26); ABG Oxygen Saturation 97.5 % (95-100); ABG PCO2 39.8 MM HG (35-48); ABG PH 7.257 (7.35-7.45); ABG PO2 95.7 MM HG (80-95); ABG TCO2 16.7 MMOL/L (23-27)
[2021-03-18 14:01] LABS: Hematocrit 27.8 VOL% (35.7-47.0); Hemoglobin 8.5 GM/DL (12.0-16.0)
[2021-03-18] MEDS: ZINC/COPPER/MANGANESE/SELENIUM 1 ML, MULTIVITAMIN INJ 10 ML in AMINO ACIDS/DEXT/LYTES 5... IV SCH (16:58)
[2021-03-18] MEDS: MICAFUNGIN 100 MG in SODIUM CHLORIDE 0.9% 100 ML IV SCH (18:35)
[2021-03-18] MEDS: INSULIN GLARGINE 100 UNIT/ML SUBCUT SCH (21:28)
[2021-03-19] MEDS: IPRATROPIUM 500 MCG/2.5 ML NEB RESP TX SCH ×4 (01:18→19:02)
[2021-03-19] MEDS: methylPREDNISolone SOD SUC 40 MG/1 ML VIAL IV SCH ×2 (01:42→14:00)
[2021-03-19] MEDS: METHOCARBAMOL INJ 500 MG in SODIUM CHLORIDE 0.9% 100 ML IV SCH ×3 (01:45→18:00)
[2021-03-19] MEDS: PHENYLEPHRINE DRIP 40 MG/250 ML PREMIX IV PRN (04:02)
[2021-03-19 04:26] LABS: ABG Base Excess -6.8 MMOL/L (-2.5-2.5); ABG HCO3 18.9 MMOL/L (20-26); ABG Oxygen Saturation 99.2 % (95-100); ABG PCO2 42.1 MM HG (35-48); ABG PH 7.277 (7.35-7.45); ABG TCO2 18.4 MMOL/L (23-27)
[2021-03-19 04:43] LABS: Basophils # 0.1 10*3/uL (0.0-0.2); Basophils % 0.5 % (0.0-0.8); Hematocrit 26.9 VOL% (35.7-47.0); Hemoglobin 8.6 GM/DL (12.0-16.0); Immature Granulocytes Absolute 1.54 #; Lymphocytes # 0.3 10*3/uL (1.4-4.0); Lymphocytes % 1.4 % (21.3-54.2); Mean Corpuscular Volume 92.4 FL (87-102); Mean Platelet Volume 12.5 FL (9.6-12.0); Monocytes % 1.1 % (1.7-12.7); NRBC # 0.06 10*3/uL; Platelet Count 145 T/CUMM (130-400); Red Blood Count 2.91 MC/CUMM (3.8-5.5); Red Cell Distribution Width 17.2 % (9.3-17.3)
[2021-03-19] MEDS: ACYCLOVIR 5% OINT 15 GM TUBE TOP SCH ×5 (05:04→20:20)
[2021-03-19 05:22] LABS: Calcium 7.8 MG/DL (8.5-10.1); Osmolality,Calculated 308.1 MOS/KG (273-304); Potassium 5.3 MMOL/L (3.5-5.1)
[2021-03-19 05:30] LABS: Band Neutrophils 6 % (0-10); Nucleated Red Blood Cells 1 (0-5); Platelet Estimate Normal; Segmented Neutrophils 92 % (50-85); Total Cells Counted 100
[2021-03-19] MEDS: INSULIN REGULAR 100 UNIT/ML SUBCUT SCH ×3 (05:59→19:27)
[2021-03-19] MEDS: RACEPINEPHRINE 0.5 ML NEB RESP TX SCH ×4 (07:35→19:02)
[2021-03-19] MEDS: DORNASE ALFA 2.5 MG/2.5 ML VIAL RESP TX SCH ×2 (07:35→19:09)
[2021-03-19] MEDS: PANTOPRAZOLE 40 MG VIAL IV SCH ×2 (09:21→20:22)
[2021-03-19] MEDS: LEVOTHYROXINE 100 MCG TABLET PO SCH (09:21)
[2021-03-19] MEDS: FERROUS SULFATE 325 MG TABLET PO SCH (09:22)
[2021-03-19] MEDS: SODIUM BICARB INJ 100 MEQ in DEXTROSE 5% 1,000 ML IV SCH (09:40)
[2021-03-19] MEDS: ALBUMIN 25% 12.5 GM/50 ML VIAL IV SCH ×2 (12:30→18:00)
[2021-03-19] MEDS: metroNIDAZOLE INJ 500 MG/100 ML PREMIX IV SCH ×2 (12:30→18:00)
[2021-03-19] MEDS: FAT EMULSION 20% 250 ML IV SCH (18:00)
[2021-03-19] MEDS: ZINC/COPPER/MANGANESE/SELENIUM 1 ML, MULTIVITAMIN INJ 10 ML in AMINO ACIDS/DEXT/LYTES 5... IV SCH (18:00)
[2021-03-19] MEDS: MICAFUNGIN 100 MG in SODIUM CHLORIDE 0.9% 100 ML IV SCH (18:00)
[2021-03-19] MEDS: AMINOPHYLLINE 500 MG in SODIUM CHLORIDE 0.9% 480 ML IV SCH (19:11)
[2021-03-19] MEDS: INSULIN GLARGINE 100 UNIT/ML SUBCUT SCH (21:07)
[2021-03-20] MEDS: IPRATROPIUM 500 MCG/2.5 ML NEB RESP TX SCH ×4 (00:05→19:15)
[2021-03-20] MEDS: INSULIN REGULAR 100 UNIT/ML SUBCUT SCH ×5 (00:37→23:52)
[2021-03-20] MEDS: METHOCARBAMOL INJ 500 MG in SODIUM CHLORIDE 0.9% 100 ML IV SCH ×3 (01:34→17:30)
[2021-03-20] MEDS: methylPREDNISolone SOD SUC 40 MG/1 ML VIAL IV SCH ×2 (01:35→13:45)
[2021-03-20] MEDS: ALBUMIN 25% 12.5 GM/50 ML VIAL IV SCH ×2 (02:08→10:25)
[2021-03-20] MEDS: metroNIDAZOLE INJ 500 MG/100 ML PREMIX IV SCH ×3 (02:42→17:25)
[2021-03-20 04:37] LABS: ABG Base Excess -6.6 MMOL/L (-2.5-2.5); ABG HCO3 18.2 MMOL/L (20-26); ABG Oxygen Saturation 98.7 % (95-100); ABG PCO2 33.3 MM HG (35-48); ABG PH 7.355 (7.35-7.45); ABG PO2 170.7 MM HG (80-95); ABG TCO2 19.2 MMOL/L (23-27); Basophils % 0.2 % (0.0-0.8); Eosinophils % 0.1 % (0.00-10.9); Hematocrit 22.6 VOL% (35.7-47.0); Hemoglobin 6.9 GM/DL (12.0-16.0); Immature Granulocytes % 9.5 %; Lymphocytes # 0.3 10*3/uL (1.4-4.0); Lymphocytes % 1.6 % (21.3-54.2); Mean Corpuscular HGB Conc 30.5 GM/DL (32-36); Mean Platelet Volume 12.5 FL (9.6-12.0); Monocytes % 1.3 % (1.7-12.7); NRBC # 0.06 10*3/uL; Neutrophils % 87.3 % (38.7-73.9); Platelet Count 121 T/CUMM (130-400); Red Blood Count 2.38 MC/CUMM (3.8-5.5); Red Cell Distribution Width 17.2 % (9.3-17.3); White Blood Count 17.9 T/CUMM (4-12)
[2021-03-20 05:08] LABS: Anisocytosis 1+; Band Neutrophils 14 % (0-10); Hypochromasia 1+; Lymphocytes 4 % (20-55); Microcytosis 1+; Segmented Neutrophils 78 % (50-85); Total Cells Counted 100
[2021-03-20 05:10] LABS: Platelet Estimate Adequate
[2021-03-20] MEDS: SODIUM BICARB INJ 100 MEQ in DEXTROSE 5% 1,000 ML IV SCH (05:54)
[2021-03-20] MEDS: ACYCLOVIR 5% OINT 15 GM TUBE TOP SCH ×5 (05:56→22:33)
[2021-03-20] MEDS: LEVOTHYROXINE 100 MCG TABLET PO SCH (06:46)
[2021-03-20] MEDS: RACEPINEPHRINE 0.5 ML NEB RESP TX SCH ×4 (07:24→19:15)
[2021-03-20] MEDS: DORNASE ALFA 2.5 MG/2.5 ML VIAL RESP TX SCH ×2 (07:24→19:15)
[2021-03-20] MEDS ORDERED: SODIUM CHLORIDE 0.9% 1,000 ML IV PRN (07:40)
[2021-03-20] MEDS: PANTOPRAZOLE 40 MG VIAL IV SCH ×2 (08:43→20:26)
[2021-03-20] MEDS: FERROUS SULFATE 325 MG TABLET PO SCH (08:43)
[2021-03-20] MEDS: AMINOPHYLLINE 500 MG in SODIUM CHLORIDE 0.9% 480 ML IV SCH (09:32)
[2021-03-20] MEDS ORDERED: FUROSEMIDE 40 MG/4 ML VIAL IV ONE (13:30)
[2021-03-20] MEDS ORDERED: FUROSEMIDE 40 MG/4 ML VIAL ONE (13:46)
[2021-03-20] MEDS: ZINC/COPPER/MANGANESE/SELENIUM 1 ML, MULTIVITAMIN INJ 10 ML in AMINO ACIDS/DEXT/LYTES 5... IV SCH (17:20)
[2021-03-20] MEDS: MICAFUNGIN 100 MG in SODIUM CHLORIDE 0.9% 100 ML IV SCH (17:25)
[2021-03-20] MEDS: INSULIN GLARGINE 100 UNIT/ML SUBCUT SCH (20:26)
[2021-03-21] MEDS: IPRATROPIUM 500 MCG/2.5 ML NEB RESP TX SCH ×4 (00:20→19:20)
[2021-03-21] MEDS: METHOCARBAMOL INJ 500 MG in SODIUM CHLORIDE 0.9% 100 ML IV SCH ×3 (01:43→18:00)
[2021-03-21] MEDS: methylPREDNISolone SOD SUC 40 MG/1 ML VIAL IV SCH ×2 (01:43→14:00)
[2021-03-21] MEDS: AMINOPHYLLINE 500 MG in SODIUM CHLORIDE 0.9% 480 ML IV SCH (01:43)
[2021-03-21] MEDS: metroNIDAZOLE INJ 500 MG/100 ML PREMIX IV SCH ×3 (02:39→18:43)
[2021-03-21 04:59] LABS: Basophils # 0.1 10*3/uL (0.0-0.2); Basophils % 0.5 % (0.0-0.8); Eosinophils % 0.1 % (0.00-10.9); Hematocrit 27.2 VOL% (35.7-47.0); Immature Granulocytes Absolute 1.79 #; Lymphocytes # 0.1 10*3/uL (1.4-4.0); Lymphocytes % 0.8 % (21.3-54.2); Mean Corpuscular HGB Conc 30.9 GM/DL (32-36); Mean Corpuscular Volume 90.7 FL (87-102); Mean Platelet Volume 12.4 FL (9.6-12.0); NRBC # 0.08 10*3/uL; Neutrophils % 85.6 % (38.7-73.9); Platelet Count 112 T/CUMM (130-400); Red Cell Distribution Width 19.4 % (9.3-17.3); White Blood Count 16.3 T/CUMM (4-12)
[2021-03-21 05:02] LABS: Hemoglobin 8.4 GM/DL (12.0-16.0)
[2021-03-21 05:05] LABS: ABG Base Excess -5.4 MMOL/L (-2.5-2.5); ABG Oxygen Saturation 99.3 % (95-100); ABG PCO2 31.2 MM HG (35-48); ABG PH 7.388 (7.35-7.45); ABG TCO2 17.4 MMOL/L (23-27)
[2021-03-21 05:24] LABS: Albumin 1.6 G/DL (3.4-5.0); Bilirubin,Total 1.1 MG/DL (0.20-1.00); Calcium 7.7 MG/DL (8.5-10.1); Osmolality,Calculated 310.1 MOS/KG (273-304)
[2021-03-21 05:41] LABS: Band Neutrophils 4 % (0-10); Lymphocytes 2 % (20-55); Platelet Estimate Normal; Segmented Neutrophils 90 % (50-85); Total Cells Counted 100
[2021-03-21] MEDS: SODIUM BICARB INJ 100 MEQ in DEXTROSE 5% 1,000 ML IV SCH ×2 (06:07→10:15)
[2021-03-21] MEDS: INSULIN REGULAR 100 UNIT/ML SUBCUT SCH ×3 (06:27→18:38)
[2021-03-21] MEDS: ACYCLOVIR 5% OINT 15 GM TUBE TOP SCH ×4 (06:27→21:34)
[2021-03-21] MEDS: LEVOTHYROXINE 100 MCG TABLET PO SCH (06:50)
[2021-03-21] MEDS: RACEPINEPHRINE 0.5 ML NEB RESP TX SCH ×4 (07:30→19:20)
[2021-03-21] MEDS: DORNASE ALFA 2.5 MG/2.5 ML VIAL RESP TX SCH ×2 (07:40→19:20)
[2021-03-21] MEDS: PANTOPRAZOLE 40 MG VIAL IV SCH ×2 (08:33→21:33)
[2021-03-21] MEDS: FERROUS SULFATE 325 MG TABLET PO SCH (08:33)
[2021-03-21] MEDS: MORPHINE 2 MG/1 ML SYRINGE IV PRN (10:20)
[2021-03-21] MEDS ORDERED: MORPHINE 2 MG/1 ML SYRINGE ONE (10:25)
[2021-03-21] MEDS: FAT EMULSION 20% 250 ML IV SCH (17:20)
[2021-03-21] MEDS: ZINC/COPPER/MANGANESE/SELENIUM 1 ML, MULTIVITAMIN INJ 10 ML in AMINO ACIDS/DEXT/LYTES 5... IV SCH (17:30)
[2021-03-21] MEDS: MICAFUNGIN 100 MG in SODIUM CHLORIDE 0.9% 100 ML IV SCH (18:00)
[2021-03-21] MEDS: INSULIN GLARGINE 100 UNIT/ML SUBCUT SCH (21:33)
[2021-03-22] MEDS: INSULIN REGULAR 100 UNIT/ML SUBCUT SCH ×5 (00:17→23:58)
[2021-03-22] MEDS: AMINOPHYLLINE 500 MG in SODIUM CHLORIDE 0.9% 480 ML IV SCH (00:17)
[2021-03-22] MEDS: IPRATROPIUM 500 MCG/2.5 ML NEB RESP TX SCH ×4 (00:45→19:26)
[2021-03-22] MEDS: methylPREDNISolone SOD SUC 40 MG/1 ML VIAL IV SCH ×2 (02:36→15:41)
[2021-03-22] MEDS: metroNIDAZOLE INJ 500 MG/100 ML PREMIX IV SCH ×3 (02:36→21:45)
[2021-03-22] MEDS: METHOCARBAMOL INJ 500 MG in SODIUM CHLORIDE 0.9% 100 ML IV SCH ×3 (02:59→17:59)
[2021-03-22 04:35] LABS: ABG HCO3 19.5 MMOL/L (20-26); ABG Oxygen Saturation 99.3 % (95-100); ABG PCO2 35.5 MM HG (35-48); ABG PH 7.339 (7.35-7.45); ABG TCO2 17.6 MMOL/L (23-27)
[2021-03-22 05:08] LABS: Basophils # 0.1 10*3/uL (0.0-0.2); Basophils % 0.5 % (0.0-0.8); Eosinophils # 0.1 10*3/uL (0.0-0.87); Eosinophils % 0.6 % (0.00-10.9); Hematocrit 29.6 VOL% (35.7-47.0); Hemoglobin 9.1 GM/DL (12.0-16.0); Immature Granulocytes % 12.5 %; Immature Granulocytes Absolute 2.09 #; Lymphocytes # 0.3 10*3/uL (1.4-4.0); Lymphocytes % 1.5 % (21.3-54.2); Mean Corpuscular HGB Conc 30.7 GM/DL (32-36); Mean Corpuscular Volume 89.7 FL (87-102); Mean Platelet Volume 13.1 FL (9.6-12.0); Monocytes % 1.6 % (1.7-12.7); NRBC # 0.04 10*3/uL; Neutrophils % 83.3 % (38.7-73.9); Platelet Count 108 T/CUMM (130-400); Red Cell Distribution Width 19.7 % (9.3-17.3); White Blood Count 16.8 T/CUMM (4-12)
[2021-03-22 05:29] LABS: Albumin 1.4 G/DL (3.4-5.0); Bilirubin,Total 1.1 MG/DL (0.20-1.00); Calcium 7.9 MG/DL (8.5-10.1); Osmolality,Calculated 305.4 MOS/KG (273-304)
[2021-03-22 05:29] LABS: Band Neutrophils 7 % (0-10); Lymphocytes 5 % (20-55); Nucleated Red Blood Cells 1 (0-5); Segmented Neutrophils 85 % (50-85); Total Cells Counted 100
[2021-03-22 05:30] LABS: Hypochromasia 1+; Platelet Estimate Decreased
[2021-03-22] MEDS: ACYCLOVIR 5% OINT 15 GM TUBE TOP SCH ×5 (06:01→21:51)
[2021-03-22] MEDS: RACEPINEPHRINE 0.5 ML NEB RESP TX SCH ×4 (07:07→19:26)
[2021-03-22] MEDS: DORNASE ALFA 2.5 MG/2.5 ML VIAL RESP TX SCH ×2 (07:18→19:31)
[2021-03-22] MEDS: SODIUM BICARB INJ 100 MEQ in DEXTROSE 5% 1,000 ML IV SCH ×2 (07:31→10:14)
[2021-03-22] MEDS: LEVOTHYROXINE 100 MCG TABLET PO SCH (07:49)
[2021-03-22] MEDS: FERROUS SULFATE 325 MG TABLET PO SCH (09:04)
[2021-03-22] MEDS: PANTOPRAZOLE 40 MG VIAL IV SCH ×2 (09:06→21:43)
[2021-03-22] MEDS: MORPHINE 2 MG/1 ML SYRINGE IV PRN (09:09)
[2021-03-22] MEDS: ALBUMIN 25% 25 GM/100 ML VIAL IV SCH ×2 (09:57→16:36)
[2021-03-22] MEDS: FUROSEMIDE 20 MG/2 ML VIAL IV SCH ×2 (10:07→18:03)
[2021-03-22] MEDS: ACYCLOVIR INJ 500 MG in SODIUM CHLORIDE 0.9% 100 ML IV SCH ×2 (10:30→18:05)
[2021-03-22] MEDS ORDERED: DEXAMETHASONE 4 MG/1 ML VIAL ONE (13:31)
[2021-03-22] MEDS ORDERED: LIDOCAINE 2% 5 ML VIAL ONE (13:31)
[2021-03-22] MEDS ORDERED: ETOMIDATE 40 MG/20 ML VIAL IV ONE (13:31)
[2021-03-22] MEDS ORDERED: ROCURONIUM 50 MG/5 ML VIAL IV ONE ×2 (13:31→14:35)
[2021-03-22] MEDS ORDERED: SEVOFLURANE 1 UNIT/15 MINUTE INH ONE ×4 (13:31→14:49)
[2021-03-22] MEDS ORDERED: ONDANSETRON 4 MG/2 ML VIAL ONE (13:31)
[2021-03-22] MEDS ORDERED: DEXMEDETOMIDINE 200 MCG/2 ML VIAL ONE (14:02)
[2021-03-22] MEDS ORDERED: PHENYLEPHRINE 1 MG/10 ML SYRINGE IV ONE ×3 (14:04→14:39)
[2021-03-22] MEDS ORDERED: MINERAL OIL/PETROLATUM OPH OINT 3.5 GM TUBE ONE (14:05)
[2021-03-22] MEDS: ZINC/COPPER/MANGANESE/SELENIUM 1 ML, MULTIVITAMIN INJ 10 ML in AMINO ACIDS/DEXT/LYTES 5... IV SCH (17:20)
[2021-03-22] MEDS: METOCLOPRAMIDE 10 MG/2 ML VIAL IV SCH ×2 (18:04→23:11)
[2021-03-22] MEDS: MICAFUNGIN 100 MG in SODIUM CHLORIDE 0.9% 100 ML IV SCH (21:44)
[2021-03-22] MEDS: INSULIN GLARGINE 100 UNIT/ML SUBCUT SCH (21:44)
[2021-03-23] MEDS: IPRATROPIUM 500 MCG/2.5 ML NEB RESP TX SCH ×4 (00:48→19:16)
[2021-03-23] MEDS: ALBUMIN 25% 25 GM/100 ML VIAL IV SCH ×3 (01:09→16:48)
[2021-03-23] MEDS: FUROSEMIDE 20 MG/2 ML VIAL IV SCH ×3 (01:12→18:11)
[2021-03-23] MEDS: methylPREDNISolone SOD SUC 40 MG/1 ML VIAL IV SCH ×2 (01:17→13:52)
[2021-03-23] MEDS: METHOCARBAMOL INJ 500 MG in SODIUM CHLORIDE 0.9% 100 ML IV SCH ×3 (01:20→18:12)
[2021-03-23] MEDS: ACYCLOVIR INJ 500 MG in SODIUM CHLORIDE 0.9% 100 ML IV SCH ×3 (01:55→18:15)
[2021-03-23] MEDS: metroNIDAZOLE INJ 500 MG/100 ML PREMIX IV SCH ×3 (03:10→18:11)
[2021-03-23 04:27] LABS: Basophils % 0.3 % (0.0-0.8); Hematocrit 24.1 VOL% (35.7-47.0); Hemoglobin 7.3 GM/DL (12.0-16.0); Immature Granulocytes % 6.7 %; Immature Granulocytes Absolute 0.72 #; Lymphocytes # 0.1 10*3/uL (1.4-4.0); Lymphocytes % 1.3 % (21.3-54.2); Mean Corpuscular HGB Conc 30.3 GM/DL (32-36); Mean Corpuscular Volume 91.3 FL (87-102); Mean Platelet Volume 12.1 FL (9.6-12.0); Monocytes % 1.4 % (1.7-12.7); NRBC # 0.03 10*3/uL; Neutrophils % 90.3 % (38.7-73.9); Red Blood Count 2.64 MC/CUMM (3.8-5.5); Red Cell Distribution Width 19.5 % (9.3-17.3); White Blood Count 10.8 T/CUMM (4-12)
[2021-03-23 04:42] LABS: Allen Test Positive; Pt O2 Delivery Device Ventilator
[2021-03-23 04:46] LABS: Platelet Count 70 T/CUMM (130-400)
[2021-03-23 04:46] LABS: ABG Base Excess -3.9 MMOL/L (-2.5-2.5); ABG HCO3 21.3 MMOL/L (20-26); ABG Oxygen Saturation 98.6 % (95-100); ABG PCO2 38.8 MM HG (35-48); ABG PH 7.357 (7.35-7.45); ABG PO2 173.2 MM HG (80-95); ABG TCO2 22.5 MMOL/L (23-27)
[2021-03-23 04:51] LABS: Band Neutrophils 13 % (0-10); Lymphocytes 1 % (20-55); Myelocytes 1 %; Platelet Estimate Decreased; Segmented Neutrophils 84 % (50-85); Total Cells Counted 100
[2021-03-23 04:52] LABS: Hypochromasia 2+; Microcytosis 1+
[2021-03-23] MEDS: SODIUM BICARB INJ 100 MEQ in DEXTROSE 5% 1,000 ML IV SCH (05:23)
[2021-03-23] MEDS: AMINOPHYLLINE 500 MG in SODIUM CHLORIDE 0.9% 480 ML IV SCH ×2 (05:25→23:22)
[2021-03-23] MEDS: METOCLOPRAMIDE 10 MG/2 ML VIAL IV SCH ×3 (06:04→18:11)
[2021-03-23] MEDS: INSULIN REGULAR 100 UNIT/ML SUBCUT SCH ×4 (06:05→23:36)
[2021-03-23] MEDS: ACYCLOVIR 5% OINT 15 GM TUBE TOP SCH ×5 (06:07→21:14)
[2021-03-23] MEDS: LEVOTHYROXINE 100 MCG TABLET PO SCH (06:23)
[2021-03-23] MEDS: RACEPINEPHRINE 0.5 ML NEB RESP TX SCH ×4 (07:01→19:16)
[2021-03-23] MEDS: DORNASE ALFA 2.5 MG/2.5 ML VIAL RESP TX SCH ×2 (07:10→19:16)
[2021-03-23] MEDS: FERROUS SULFATE 325 MG TABLET PO SCH (08:34)
[2021-03-23] MEDS: FAMOTIDINE 20 MG/2 ML VIAL IV SCH (08:34)
[2021-03-23 08:45] LABS: Calcium 7.8 MG/DL (8.5-10.1); Osmolality,Calculated 309.5 MOS/KG (273-304); Potassium 5.2 MMOL/L (3.5-5.1)
[2021-03-23] MEDS ORDERED: SODIUM CHLORIDE 0.9% 1,000 ML IV PRN (08:58)
[2021-03-23] MEDS: SODIUM HYPOCHLORITE 0.25% IRRIG 473 ML BOTTLE TOP SCH (16:51)
[2021-03-23] MEDS: MULTIVITAMIN IV SCH (16:52)
[2021-03-23] MEDS: AMINO ACIDS 10% IV SCH (16:52)
[2021-03-23] MEDS: DEXTROSE IV SCH (16:52)
[2021-03-23] MEDS: MICAFUNGIN 100 MG in SODIUM CHLORIDE 0.9% 100 ML IV SCH (18:12)
[2021-03-23] MEDS: INSULIN GLARGINE 100 UNIT/ML SUBCUT SCH (21:14)
[2021-03-24] MEDS: ALBUMIN 25% 25 GM/100 ML VIAL IV SCH ×3 (00:13→16:15)
[2021-03-24] MEDS: METOCLOPRAMIDE 10 MG/2 ML VIAL IV SCH ×4 (00:13→17:50)
[2021-03-24] MEDS: IPRATROPIUM 500 MCG/2.5 ML NEB RESP TX SCH ×4 (00:28→19:35)
[2021-03-24] MEDS: FUROSEMIDE 20 MG/2 ML VIAL IV SCH ×3 (02:32→17:50)
[2021-03-24] MEDS: ACYCLOVIR INJ 500 MG in SODIUM CHLORIDE 0.9% 100 ML IV SCH ×2 (02:33→13:40)
[2021-03-24] MEDS: metroNIDAZOLE INJ 500 MG/100 ML PREMIX IV SCH ×3 (02:33→17:55)
[2021-03-24] MEDS: METHOCARBAMOL INJ 500 MG in SODIUM CHLORIDE 0.9% 100 ML IV SCH ×3 (02:33→18:00)
[2021-03-24] MEDS: methylPREDNISolone SOD SUC 40 MG/1 ML VIAL IV SCH ×2 (02:34→13:35)
[2021-03-24 03:42] LABS: Basophils % 0.2 % (0.0-0.8); Eosinophils % 0.1 % (0.00-10.9); Hematocrit 29.1 VOL% (35.7-47.0); Immature Granulocytes % 6.8 %; Immature Granulocytes Absolute 0.74 #; Lymphocytes # 0.2 10*3/uL (1.4-4.0); Lymphocytes % 2.1 % (21.3-54.2); Mean Corpuscular HGB Conc 31.6 GM/DL (32-36); Monocytes % 1.8 % (1.7-12.7); NRBC # 0.03 10*3/uL; Red Cell Distribution Width 18.5 % (9.3-17.3)
[2021-03-24 03:47] LABS: Hemoglobin 9.2 GM/DL (12.0-16.0); Red Blood Count 3.27 MC/CUMM (3.8-5.5)
[2021-03-24 03:48] LABS: Platelet Count 63 T/CUMM (130-400)
[2021-03-24 03:53] LABS: Calcium 7.7 MG/DL (8.5-10.1); Osmolality,Calculated 312.3 MOS/KG (273-304); Potassium 4.8 MMOL/L (3.5-5.1)
[2021-03-24 03:58] LABS: INR 1.3; PT Patient Result 14.8 SECS (10.5-12.0); Partial Thromboplastin Time 46.1 SECS (23.9-33.8)
[2021-03-24 04:00] LABS: Band Neutrophils 7 % (0-10); Eosinophils 1 % (0-10); Lymphocytes 3 % (20-55); Segmented Neutrophils 87 % (50-85); Total Cells Counted 100
[2021-03-24 04:01] LABS: Hypochromasia 1+; Microcytosis 1+; Ovalocytes Slight; Platelet Estimate Decreased
[2021-03-24 04:17] LABS: ABG Base Excess -2.1 MMOL/L (-2.5-2.5); ABG HCO3 22.3 MMOL/L (20-26); ABG Oxygen Saturation 98.5 % (95-100); ABG PCO2 36.9 MM HG (35-48); ABG PO2 145.6 MM HG (80-95); ABG TCO2 23.5 MMOL/L (23-27); Allen Test Positive; Pt O2 Delivery Device Ventilator
[2021-03-24] MEDS: SODIUM BICARB INJ 100 MEQ in DEXTROSE 5% 1,000 ML IV SCH ×2 (05:58→08:45)
[2021-03-24] MEDS: INSULIN REGULAR 100 UNIT/ML SUBCUT SCH ×3 (05:59→18:00)
[2021-03-24] MEDS: ACYCLOVIR 5% OINT 15 GM TUBE TOP SCH ×5 (05:59→22:05)
[2021-03-24] MEDS: LEVOTHYROXINE 100 MCG TABLET PO SCH (06:01)
[2021-03-24] MEDS: RACEPINEPHRINE 0.5 ML NEB RESP TX SCH ×4 (08:00→19:35)
[2021-03-24] MEDS: FAMOTIDINE 20 MG/2 ML VIAL IV SCH (08:00)
[2021-03-24] MEDS: DORNASE ALFA 2.5 MG/2.5 ML VIAL RESP TX SCH ×2 (08:10→19:35)
[2021-03-24] MEDS ORDERED: SODIUM HYPOCHLORITE 0.25% IRRIG 473 ML BOTTLE TOP SCH (09:00)
[2021-03-24] MEDS: FERROUS SULFATE 325 MG TABLET PO SCH (09:05)
[2021-03-24] MEDS: BISOPROLOL 5 MG TABLET PO PRN (09:05)
[2021-03-24 09:50] LABS: Albumin 3.1 G/DL (3.4-5.0); Bilirubin,Direct 0.74 MG/DL (0.0-0.20); Bilirubin,Indirect 0.6 MG/DL (0.0-1.0); Bilirubin,Total 1.3 MG/DL (0.20-1.00); Total Protein 5.9 G/DL (6.4-8.2)
[2021-03-24] MEDS: SODIUM HYPOCHLORITE 0.25% IRRIG 473 ML BOTTLE TOP SCH (13:00)
[2021-03-24] MEDS: MORPHINE 2 MG/1 ML SYRINGE IV PRN (14:50)
[2021-03-24] MEDS: AMINO ACIDS 10% IV SCH (16:50)
[2021-03-24] MEDS: MULTIVITAMIN IV SCH (16:50)
[2021-03-24] MEDS: DEXTROSE IV SCH (16:50)
[2021-03-24] MEDS: MICAFUNGIN 100 MG in SODIUM CHLORIDE 0.9% 100 ML IV SCH (18:00)
[2021-03-24] MEDS: INSULIN GLARGINE 100 UNIT/ML SUBCUT SCH (20:45)
[2021-03-25] MEDS: AMINOPHYLLINE 500 MG in SODIUM CHLORIDE 0.9% 480 ML IV SCH ×2 (00:13→13:45)
[2021-03-25] MEDS: METOCLOPRAMIDE 10 MG/2 ML VIAL IV SCH ×4 (00:14→18:05)
[2021-03-25] MEDS: INSULIN REGULAR 100 UNIT/ML SUBCUT SCH ×4 (00:14→18:05)
[2021-03-25] MEDS: IPRATROPIUM 500 MCG/2.5 ML NEB RESP TX SCH ×4 (00:18→18:15)
[2021-03-25] MEDS: ALBUMIN 25% 25 GM/100 ML VIAL IV SCH ×3 (00:44→16:20)
[2021-03-25] MEDS: FUROSEMIDE 20 MG/2 ML VIAL IV SCH ×3 (01:56→18:05)
[2021-03-25] MEDS: ACYCLOVIR INJ 500 MG in SODIUM CHLORIDE 0.9% 100 ML IV SCH ×2 (01:57→13:40)
[2021-03-25] MEDS: METHOCARBAMOL INJ 500 MG in SODIUM CHLORIDE 0.9% 100 ML IV SCH ×3 (01:57→18:15)
[2021-03-25] MEDS: methylPREDNISolone SOD SUC 40 MG/1 ML VIAL IV SCH ×2 (01:57→13:40)
[2021-03-25] MEDS: metroNIDAZOLE INJ 500 MG/100 ML PREMIX IV SCH ×3 (03:11→18:10)
[2021-03-25 03:25] LABS: ABG Base Excess -2.4 MMOL/L (-2.5-2.5); ABG HCO3 22.2 MMOL/L (20-26); ABG Oxygen Saturation 98.7 % (95-100); ABG PCO2 37.2 MM HG (35-48); ABG PH 7.394 (7.35-7.45); ABG TCO2 23.4 MMOL/L (23-27); Allen Test Positive; Pt O2 Delivery Device Ventilator
[2021-03-25 03:45] LABS: Basophils % 0.3 % (0.0-0.8); Eosinophils % 0.1 % (0.00-10.9); Hematocrit 27.5 VOL% (35.7-47.0); Hemoglobin 8.6 GM/DL (12.0-16.0); Immature Granulocytes % 7.5 %; Immature Granulocytes Absolute 0.74 #; Lymphocytes # 0.3 10*3/uL (1.4-4.0); Lymphocytes % 2.6 % (21.3-54.2); Mean Corpuscular HGB Conc 31.3 GM/DL (32-36); Monocytes % 2.2 % (1.7-12.7); NRBC # 0.04 10*3/uL; Neutrophils % 87.3 % (38.7-73.9); Platelet Count 60 T/CUMM (130-400); Red Blood Count 3.09 MC/CUMM (3.8-5.5); Red Cell Distribution Width 18.6 % (9.3-17.3); White Blood Count 9.9 T/CUMM (4-12)
[2021-03-25 04:03] LABS: Band Neutrophils 4 % (0-10); Hypochromasia 1+; Lymphocytes 3 % (20-55); Platelet Estimate Decreased; Segmented Neutrophils 91 % (50-85); Total Cells Counted 100
[2021-03-25 04:04] LABS: Microcytosis 1+
[2021-03-25 04:38] LABS: Calcium 7.8 MG/DL (8.5-10.1); Osmolality,Calculated 310.5 MOS/KG (273-304); Potassium 4.2 MMOL/L (3.5-5.1)
[2021-03-25 05:15] LABS: Albumin 3.4 G/DL (3.4-5.0); Bilirubin,Direct 0.61 MG/DL (0.0-0.20); Bilirubin,Indirect 0.6 MG/DL (0.0-1.0); Bilirubin,Total 1.2 MG/DL (0.20-1.00); Total Protein 5.4 G/DL (6.4-8.2)
[2021-03-25] MEDS: ACYCLOVIR 5% OINT 15 GM TUBE TOP SCH ×5 (06:43→21:55)
[2021-03-25] MEDS: LEVOTHYROXINE 100 MCG TABLET PO SCH (06:43)
[2021-03-25] MEDS: RACEPINEPHRINE 0.5 ML NEB RESP TX SCH ×4 (07:22→18:15)
[2021-03-25] MEDS: DORNASE ALFA 2.5 MG/2.5 ML VIAL RESP TX SCH ×2 (07:32→18:25)
[2021-03-25] MEDS: FAMOTIDINE 20 MG/2 ML VIAL IV SCH (08:05)
[2021-03-25] MEDS: FERROUS SULFATE 325 MG TABLET PO SCH (08:10)
[2021-03-25] MEDS: SODIUM HYPOCHLORITE 0.25% IRRIG 473 ML BOTTLE TOP SCH (09:40)
[2021-03-25] MEDS: MORPHINE 2 MG/1 ML SYRINGE IV PRN ×2 (10:40→15:40)
[2021-03-25] MEDS: hydrALAZINE 20 MG/1 ML VIAL IV PRN (11:14)
[2021-03-25] MEDS: SODIUM BICARB INJ 100 MEQ in DEXTROSE 5% 1,000 ML IV SCH (11:15)
[2021-03-25] MEDS: BISOPROLOL 5 MG TABLET PO PRN (15:40)
[2021-03-25] MEDS: AMINO ACIDS 10% IV SCH (16:35)
[2021-03-25] MEDS: DEXTROSE IV SCH (16:35)
[2021-03-25] MEDS: MULTIVITAMIN IV SCH (16:35)
[2021-03-25] MEDS: MICAFUNGIN 100 MG in SODIUM CHLORIDE 0.9% 100 ML IV SCH (18:15)
[2021-03-25] MEDS: INSULIN GLARGINE 100 UNIT/ML SUBCUT SCH (20:48)
[2021-03-26] MEDS: IPRATROPIUM 500 MCG/2.5 ML NEB RESP TX SCH ×4 (00:04→19:39)
[2021-03-26] MEDS: AMINOPHYLLINE 500 MG in SODIUM CHLORIDE 0.9% 480 ML IV SCH ×2 (00:36→23:22)
[2021-03-26] MEDS: INSULIN REGULAR 100 UNIT/ML SUBCUT SCH ×5 (00:49→23:16)
[2021-03-26] MEDS: METOCLOPRAMIDE 10 MG/2 ML VIAL IV SCH ×5 (00:50→23:21)
[2021-03-26] MEDS: ALBUMIN 25% 25 GM/100 ML VIAL IV SCH ×2 (01:23→09:00)
[2021-03-26] MEDS: METHOCARBAMOL INJ 500 MG in SODIUM CHLORIDE 0.9% 100 ML IV SCH ×3 (02:31→17:00)
[2021-03-26] MEDS: methylPREDNISolone SOD SUC 40 MG/1 ML VIAL IV SCH ×2 (02:31→13:05)
[2021-03-26] MEDS: FUROSEMIDE 20 MG/2 ML VIAL IV SCH ×2 (02:31→10:08)
[2021-03-26] MEDS: ACYCLOVIR INJ 500 MG in SODIUM CHLORIDE 0.9% 100 ML IV SCH ×2 (02:32→14:14)
[2021-03-26] MEDS: metroNIDAZOLE INJ 500 MG/100 ML PREMIX IV SCH ×3 (03:05→18:13)
[2021-03-26 03:12] LABS: ABG Base Excess -3.1 MMOL/L (-2.5-2.5); ABG HCO3 21.8 MMOL/L (20-26); ABG Oxygen Saturation 99.6 % (95-100); ABG PCO2 37.1 MM HG (35-48); ABG PH 7.376 (7.35-7.45); ABG TCO2 20.2 MMOL/L (23-27); Allen Test Positive; Pt O2 Delivery Device Ventilator
[2021-03-26 04:09] LABS: Basophils % 0.5 % (0.0-0.8); Eosinophils % 0.1 % (0.00-10.9); Hematocrit 25.7 VOL% (35.7-47.0); Hemoglobin 8.2 GM/DL (12.0-16.0); Immature Granulocytes % 9.4 %; Immature Granulocytes Absolute 0.75 #; Lymphocytes # 0.3 10*3/uL (1.4-4.0); Lymphocytes % 3.8 % (21.3-54.2); Mean Corpuscular HGB Conc 31.9 GM/DL (32-36); Mean Corpuscular Volume 88.6 FL (87-102); Monocytes % 3.4 % (1.7-12.7); NRBC # 0.04 10*3/uL; Neutrophils % 82.8 % (38.7-73.9); Platelet Count 49 T/CUMM (130-400); Red Cell Distribution Width 18.6 % (9.3-17.3)
[2021-03-26 04:18] LABS: Calcium 7.6 MG/DL (8.5-10.1); Osmolality,Calculated 316.4 MOS/KG (273-304); Potassium 3.7 MMOL/L (3.5-5.1)
[2021-03-26 04:45] LABS: Band Neutrophils 2 % (0-10); Eosinophils 1 % (0-10); Hypochromasia 1+; Lymphocytes 2 % (20-55); Microcytosis 1+; Myelocytes 1 %; Platelet Estimate Decreased; Segmented Neutrophils 90 % (50-85); Total Cells Counted 100
[2021-03-26 05:11] LABS: Albumin 3.7 G/DL (3.4-5.0); Bilirubin,Direct 0.58 MG/DL (0.0-0.20); Bilirubin,Indirect 0.6 MG/DL (0.0-1.0); Bilirubin,Total 1.2 MG/DL (0.20-1.00); Total Protein 5.4 G/DL (6.4-8.2)
[2021-03-26] MEDS: LEVOTHYROXINE 100 MCG TABLET PO SCH (06:22)
[2021-03-26] MEDS: ACYCLOVIR 5% OINT 15 GM TUBE TOP SCH ×5 (06:34→21:02)
[2021-03-26] MEDS: DORNASE ALFA 2.5 MG/2.5 ML VIAL RESP TX SCH ×2 (07:21→19:39)
[2021-03-26] MEDS: RACEPINEPHRINE 0.5 ML NEB RESP TX SCH ×4 (07:21→19:39)
[2021-03-26] MEDS: SODIUM HYPOCHLORITE 0.25% IRRIG 473 ML BOTTLE TOP SCH (08:00)
[2021-03-26] MEDS: FERROUS SULFATE 325 MG TABLET PO SCH (09:07)
[2021-03-26] MEDS: FAMOTIDINE 20 MG/2 ML VIAL IV SCH (09:07)
[2021-03-26] MEDS ORDERED: SODIUM CHLORIDE 0.9% 1,000 ML IV PRN (10:30)
[2021-03-26] MEDS: MORPHINE 2 MG/1 ML SYRINGE IV PRN (13:07)
[2021-03-26] MEDS: COLISTIMETHATE 150 MG VIAL RESP TX SCH ×3 (13:13→23:35)
[2021-03-26] MEDS: SODIUM BICARB INJ 100 MEQ in DEXTROSE 5% 1,000 ML IV SCH (13:13)
[2021-03-26] MEDS: MICAFUNGIN 100 MG in SODIUM CHLORIDE 0.9% 100 ML IV SCH (18:13)
[2021-03-26] MEDS: INSULIN GLARGINE 100 UNIT/ML SUBCUT SCH (21:02)
[2021-03-27] MEDS: IPRATROPIUM 500 MCG/2.5 ML NEB RESP TX SCH ×4 (01:07→19:24)
[2021-03-27] MEDS: methylPREDNISolone SOD SUC 40 MG/1 ML VIAL IV SCH ×2 (01:16→14:27)
[2021-03-27] MEDS: METHOCARBAMOL INJ 500 MG in SODIUM CHLORIDE 0.9% 100 ML IV SCH ×3 (01:16→17:11)
[2021-03-27] MEDS: ACYCLOVIR INJ 500 MG in SODIUM CHLORIDE 0.9% 100 ML IV SCH ×2 (02:03→14:27)
[2021-03-27] MEDS: hydrALAZINE 20 MG/1 ML VIAL IV PRN (02:59)
[2021-03-27 04:20] LABS: ABG Base Excess -1.5 MMOL/L (-2.5-2.5); ABG HCO3 23.2 MMOL/L (20-26); ABG Oxygen Saturation 99.3 % (95-100); ABG PCO2 33.9 MM HG (35-48); ABG PH 7.424 (7.35-7.45); ABG TCO2 19.5 MMOL/L (23-27); Allen Test Positive; Pt O2 Delivery Device Ventilator
[2021-03-27 04:21] LABS: Basophils # 0.1 10*3/uL (0.0-0.2); Eosinophils % 0.1 % (0.00-10.9); Hematocrit 37.3 VOL% (35.7-47.0); Hemoglobin 12.3 GM/DL (12.0-16.0); Immature Granulocytes % 8.5 %; Lymphocytes # 0.2 10*3/uL (1.4-4.0); Lymphocytes % 2.5 % (21.3-54.2); Mean Corpuscular Volume 86.9 FL (87-102); Monocytes % 4.3 % (1.7-12.7); NRBC # 0.03 10*3/uL; Neutrophils % 83.6 % (38.7-73.9); Platelet Count 48 T/CUMM (130-400); Red Blood Count 4.29 MC/CUMM (3.8-5.5); Red Cell Distribution Width 17.3 % (9.3-17.3); White Blood Count 9.4 T/CUMM (4-12)
[2021-03-27 04:48] LABS: Albumin 3.4 G/DL (3.4-5.0); Bilirubin,Total 2.1 MG/DL (0.20-1.00); Calcium 8.5 MG/DL (8.5-10.1); Osmolality,Calculated 318.4 MOS/KG (273-304); Potassium 4.3 MMOL/L (3.5-5.1); Total Protein 6.1 G/DL (6.4-8.2)
[2021-03-27 05:00] LABS: Band Neutrophils 1 % (0-10); Lymphocytes 5 % (20-55); Segmented Neutrophils 94 % (50-85); Total Cells Counted 100
[2021-03-27 05:01] LABS: Platelet Estimate Decreased
[2021-03-27 05:10] LABS: Microcytosis 1+
[2021-03-27 05:11] LABS: Polychromasia Slight
[2021-03-27 05:16] LABS: Anisocytosis 1+
[2021-03-27 05:17] LABS: Macrocytosis Slight
[2021-03-27] MEDS: INSULIN REGULAR 100 UNIT/ML SUBCUT SCH ×3 (06:04→17:44)
[2021-03-27] MEDS: ACYCLOVIR 5% OINT 15 GM TUBE TOP SCH ×5 (06:14→21:25)
[2021-03-27] MEDS: LEVOTHYROXINE 100 MCG TABLET PO SCH (06:14)
[2021-03-27] MEDS: METOCLOPRAMIDE 10 MG/2 ML VIAL IV SCH ×3 (06:14→17:40)
[2021-03-27] MEDS: RACEPINEPHRINE 0.5 ML NEB RESP TX SCH ×4 (07:13→19:24)
[2021-03-27] MEDS: DORNASE ALFA 2.5 MG/2.5 ML VIAL RESP TX SCH ×2 (07:13→19:42)
[2021-03-27] MEDS: COLISTIMETHATE 150 MG VIAL RESP TX SCH ×2 (07:13→15:11)
[2021-03-27] MEDS: FERROUS SULFATE 325 MG TABLET PO SCH (08:51)
[2021-03-27] MEDS: FAMOTIDINE 20 MG/2 ML VIAL IV SCH (08:51)
[2021-03-27] MEDS: SODIUM HYPOCHLORITE 0.25% IRRIG 473 ML BOTTLE TOP SCH (11:30)
[2021-03-27] MEDS: MORPHINE 2 MG/1 ML SYRINGE IV PRN (11:55)
[2021-03-27] MEDS: SODIUM BICARB INJ 100 MEQ in DEXTROSE 5% 1,000 ML IV SCH (12:55)
[2021-03-27] MEDS: MICAFUNGIN 100 MG in SODIUM CHLORIDE 0.9% 100 ML IV SCH (18:11)
[2021-03-27] MEDS: INSULIN GLARGINE 100 UNIT/ML SUBCUT SCH (21:22)
[2021-03-28] MEDS: AMINOPHYLLINE 500 MG in SODIUM CHLORIDE 0.9% 480 ML IV SCH (00:37)
[2021-03-28] MEDS: INSULIN REGULAR 100 UNIT/ML SUBCUT SCH ×5 (00:38→23:58)
[2021-03-28] MEDS: METOCLOPRAMIDE 10 MG/2 ML VIAL IV SCH ×4 (00:38→18:00)
[2021-03-28] MEDS: IPRATROPIUM 500 MCG/2.5 ML NEB RESP TX SCH ×4 (01:20→18:58)
[2021-03-28] MEDS: COLISTIMETHATE 150 MG VIAL RESP TX SCH ×3 (01:20→15:48)
[2021-03-28] MEDS: ACYCLOVIR INJ 500 MG in SODIUM CHLORIDE 0.9% 100 ML IV SCH ×2 (01:28→14:23)
[2021-03-28] MEDS: methylPREDNISolone SOD SUC 40 MG/1 ML VIAL IV SCH ×2 (01:59→13:38)
[2021-03-28] MEDS: METHOCARBAMOL INJ 500 MG in SODIUM CHLORIDE 0.9% 100 ML IV SCH ×2 (01:59→10:51)
[2021-03-28 04:29] LABS: Allen Test Positive; Pt O2 Delivery Device Ventilator
[2021-03-28 04:35] LABS: Basophils # 0.1 10*3/uL (0.0-0.2); Basophils % 0.7 % (0.0-0.8); Hematocrit 39.4 VOL% (35.7-47.0); Hemoglobin 12.8 GM/DL (12.0-16.0); Immature Granulocytes % 5.7 %; Immature Granulocytes Absolute 0.61 #; Lymphocytes # 0.2 10*3/uL (1.4-4.0); Lymphocytes % 1.6 % (21.3-54.2); Mean Corpuscular HGB Conc 32.5 GM/DL (32-36); Mean Corpuscular Volume 88.5 FL (87-102); Monocytes % 4.3 % (1.7-12.7); NRBC # 0.02 10*3/uL; Neutrophils % 87.7 % (38.7-73.9); Platelet Count 63 T/CUMM (130-400); Red Blood Count 4.45 MC/CUMM (3.8-5.5); Red Cell Distribution Width 17.6 % (9.3-17.3); White Blood Count 10.7 T/CUMM (4-12)
[2021-03-28 04:38] LABS: ABG Base Excess -1.5 MMOL/L (-2.5-2.5); ABG HCO3 22.8 MMOL/L (20-26); ABG Oxygen Saturation 98.5 % (95-100); ABG PCO2 37.1 MM HG (35-48); ABG PH 7.406 (7.35-7.45); ABG PO2 138.5 MM HG (80-95); ABG TCO2 23.9 MMOL/L (23-27)
[2021-03-28 04:41] LABS: Albumin 2.9 G/DL (3.4-5.0); Bilirubin,Total 1.4 MG/DL (0.20-1.00); Calcium 8.5 MG/DL (8.5-10.1); Osmolality,Calculated 317.4 MOS/KG (273-304); Potassium 4.9 MMOL/L (3.5-5.1); Total Protein 5.8 G/DL (6.4-8.2)
[2021-03-28 05:38] LABS: Band Neutrophils 1 % (0-10); Lymphocytes 7 % (20-55); Segmented Neutrophils 91 % (50-85); Total Cells Counted 100
[2021-03-28 05:44] LABS: Atypical Lymphocytes Few; Microcytosis Slight; Platelet Estimate Decreased
[2021-03-28] MEDS: LEVOTHYROXINE 100 MCG TABLET PO SCH (06:23)
[2021-03-28] MEDS: ACYCLOVIR 5% OINT 15 GM TUBE TOP SCH ×5 (06:23→21:32)
[2021-03-28] MEDS: RACEPINEPHRINE 0.5 ML NEB RESP TX SCH ×4 (07:20→18:58)
[2021-03-28] MEDS: DORNASE ALFA 2.5 MG/2.5 ML VIAL RESP TX SCH ×2 (07:20→18:58)
[2021-03-28] MEDS: SODIUM HYPOCHLORITE 0.25% IRRIG 473 ML BOTTLE TOP SCH (08:15)
[2021-03-28] MEDS: FAMOTIDINE 20 MG/2 ML VIAL IV SCH (08:39)
[2021-03-28] MEDS: FERROUS SULFATE 325 MG TABLET PO SCH (08:45)
[2021-03-28] MEDS: MORPHINE 2 MG/1 ML SYRINGE IV PRN ×2 (08:45→12:38)
[2021-03-28] MEDS ORDERED: AMPICILLIN INJ 1,000 MG in SODIUM CHLORIDE 0.9% 100 ML IV SCH (13:00)
[2021-03-28] MEDS: AMPICILLIN INJ 1,000 MG in SODIUM CHLORIDE 0.9% 100 ML IV SCH ×2 (13:29→20:27)
[2021-03-28] MEDS: MICAFUNGIN 100 MG in SODIUM CHLORIDE 0.9% 100 ML IV SCH (18:00)
[2021-03-28] MEDS: INSULIN GLARGINE 100 UNIT/ML SUBCUT SCH (20:27)
[2021-03-29] MEDS: COLISTIMETHATE 150 MG VIAL RESP TX SCH ×4 (00:21→23:40)
[2021-03-29] MEDS: IPRATROPIUM 500 MCG/2.5 ML NEB RESP TX SCH ×4 (00:21→19:00)
[2021-03-29] MEDS: AMINOPHYLLINE 500 MG in SODIUM CHLORIDE 0.9% 480 ML IV SCH (01:12)
[2021-03-29] MEDS: ACYCLOVIR INJ 500 MG in SODIUM CHLORIDE 0.9% 100 ML IV SCH ×2 (01:12→13:35)
[2021-03-29] MEDS: methylPREDNISolone SOD SUC 40 MG/1 ML VIAL IV SCH ×2 (01:12→13:35)
[2021-03-29] MEDS: METOCLOPRAMIDE 10 MG/2 ML VIAL IV SCH ×2 (02:19→10:50)
[2021-03-29] MEDS: AMPICILLIN INJ 1,000 MG in SODIUM CHLORIDE 0.9% 100 ML IV SCH ×4 (02:19→21:26)
[2021-03-29 03:55] LABS: Basophils % 0.3 % (0.0-0.8); Eosinophils % 0.1 % (0.00-10.9); Hematocrit 39.8 VOL% (35.7-47.0); Hemoglobin 12.6 GM/DL (12.0-16.0); Immature Granulocytes % 2.7 %; Immature Granulocytes Absolute 0.32 #; Lymphocytes # 0.1 10*3/uL (1.4-4.0); Lymphocytes % 1.1 % (21.3-54.2); Mean Corpuscular HGB Conc 31.7 GM/DL (32-36); Mean Corpuscular Volume 89.4 FL (87-102); Monocytes % 3.7 % (1.7-12.7); NRBC # 0.02 10*3/uL; Neutrophils % 92.1 % (38.7-73.9); Platelet Count 69 T/CUMM (130-400); Red Blood Count 4.45 MC/CUMM (3.8-5.5); White Blood Count 11.8 T/CUMM (4-12)
[2021-03-29 04:03] LABS: Albumin 2.5 G/DL (3.4-5.0); Bilirubin,Total 1.4 MG/DL (0.20-1.00); Calcium 8.4 MG/DL (8.5-10.1); Osmolality,Calculated 318.4 MOS/KG (273-304); Potassium 5.8 MMOL/L (3.5-5.1); Total Protein 5.7 G/DL (6.4-8.2)
[2021-03-29 04:15] LABS: Band Neutrophils 4 % (0-10); Hypochromasia Slight; Microcytosis Slight; Ovalocytes Slight; Platelet Estimate Decreased; Segmented Neutrophils 90 % (50-85); Total Cells Counted 100
[2021-03-29 04:29] LABS: Allen Test Positive; Pt O2 Delivery Device Ventilator
[2021-03-29 05:00] LABS: ABG Base Excess -1.9 MMOL/L (-2.5-2.5); ABG HCO3 22.6 MMOL/L (20-26); ABG PCO2 37.5 MM HG (35-48); ABG PH 7.397 (7.35-7.45); ABG PO2 179.8 MM HG (80-95); ABG TCO2 23.7 MMOL/L (23-27)
[2021-03-29 05:15] LABS: INR 1.4; PT Patient Result 15.6 SECS (10.5-12.0); Partial Thromboplastin Time 36.8 SECS (23.9-33.8)
[2021-03-29] MEDS: INSULIN REGULAR 100 UNIT/ML SUBCUT SCH ×3 (05:58→18:10)
[2021-03-29] MEDS: ACYCLOVIR 5% OINT 15 GM TUBE TOP SCH ×5 (06:14→21:26)
[2021-03-29] MEDS: LEVOTHYROXINE 100 MCG TABLET PO SCH (06:14)
[2021-03-29] MEDS: RACEPINEPHRINE 0.5 ML NEB RESP TX SCH ×4 (07:42→19:00)
[2021-03-29] MEDS: DORNASE ALFA 2.5 MG/2.5 ML VIAL RESP TX SCH ×2 (07:55→19:00)
[2021-03-29] MEDS: FAMOTIDINE 20 MG/2 ML VIAL IV SCH (08:20)
[2021-03-29] MEDS: FERROUS SULFATE 325 MG TABLET PO SCH (08:25)
[2021-03-29] MEDS: SODIUM HYPOCHLORITE 0.25% IRRIG 473 ML BOTTLE TOP SCH (08:50)
[2021-03-29] MEDS: MORPHINE 2 MG/1 ML SYRINGE IV PRN ×2 (09:15→14:50)
[2021-03-29] MEDS ORDERED: SODIUM POLYSTYRENE SULFATE 15 GM/60 ML BOTTLE PO ONE (09:28)
[2021-03-29] MEDS: THEOPHYLLINE 5.33 MG/ML 30 ML/BOTTLE PO SCH ×2 (11:25→18:15)
[2021-03-29] MEDS: MICAFUNGIN 100 MG in SODIUM CHLORIDE 0.9% 100 ML IV SCH (18:15)
[2021-03-29] MEDS: INSULIN GLARGINE 100 UNIT/ML SUBCUT SCH (21:26)
[2021-03-30] MEDS: INSULIN REGULAR 100 UNIT/ML SUBCUT SCH ×4 (00:04→18:51)
[2021-03-30] MEDS: IPRATROPIUM 500 MCG/2.5 ML NEB RESP TX SCH ×4 (01:19→20:00)
[2021-03-30] MEDS: AMPICILLIN INJ 1,000 MG in SODIUM CHLORIDE 0.9% 100 ML IV SCH ×4 (01:51→20:51)
[2021-03-30] MEDS: ACYCLOVIR INJ 500 MG in SODIUM CHLORIDE 0.9% 100 ML IV SCH ×2 (02:10→14:55)
[2021-03-30] MEDS: THEOPHYLLINE 5.33 MG/ML 30 ML/BOTTLE PO SCH ×3 (02:11→18:51)
[2021-03-30] MEDS: methylPREDNISolone SOD SUC 40 MG/1 ML VIAL IV SCH ×2 (02:15→16:24)
[2021-03-30 03:07] LABS: ABG Base Excess -2.6 MMOL/L (-2.5-2.5); ABG HCO3 22.3 MMOL/L (20-26); ABG Oxygen Saturation 98.6 % (95-100); ABG PCO2 40.7 MM HG (35-48); ABG PH 7.356 (7.35-7.45)
[2021-03-30 03:40] LABS: Basophils % 0.3 % (0.0-0.8); Eosinophils % 0.1 % (0.00-10.9); Hematocrit 40.1 VOL% (35.7-47.0); Hemoglobin 12.6 GM/DL (12.0-16.0); Immature Granulocytes % 2.6 %; Immature Granulocytes Absolute 0.29 #; Lymphocytes # 0.2 10*3/uL (1.4-4.0); Lymphocytes % 1.4 % (21.3-54.2); Mean Corpuscular HGB Conc 31.4 GM/DL (32-36); Mean Corpuscular Volume 90.9 FL (87-102); Monocytes % 2.9 % (1.7-12.7); Neutrophils % 92.7 % (38.7-73.9); Platelet Count 72 T/CUMM (130-400); Red Blood Count 4.41 MC/CUMM (3.8-5.5); White Blood Count 11.2 T/CUMM (4-12)
[2021-03-30] MEDS: MORPHINE 2 MG/1 ML SYRINGE IV PRN ×3 (03:40→17:15)
[2021-03-30 03:59] LABS: Albumin 2.3 G/DL (3.4-5.0); Bilirubin,Direct 0.4 MG/DL (0.0-0.20); Bilirubin,Indirect 0.4 MG/DL (0.0-1.0); Bilirubin,Total 0.8 MG/DL (0.20-1.00); Calcium 8.5 MG/DL (8.5-10.1); Osmolality,Calculated 321.7 MOS/KG (273-304); Potassium 5.6 MMOL/L (3.5-5.1); Total Protein 5.5 G/DL (6.4-8.2)
[2021-03-30 04:12] LABS: Band Neutrophils 3 % (0-10); Lymphocytes 3 % (20-55); Segmented Neutrophils 92 % (50-85); Total Cells Counted 100
[2021-03-30 04:13] LABS: Hypochromasia Slight; Microcytosis 1+
[2021-03-30 04:15] LABS: Platelet Estimate Decreased
[2021-03-30] MEDS: ACYCLOVIR 5% OINT 15 GM TUBE TOP SCH ×5 (06:12→22:22)
[2021-03-30] MEDS: LEVOTHYROXINE 100 MCG TABLET PO SCH (06:12)
[2021-03-30] MEDS: RACEPINEPHRINE 0.5 ML NEB RESP TX SCH ×4 (07:26→20:00)
[2021-03-30] MEDS: DORNASE ALFA 2.5 MG/2.5 ML VIAL RESP TX SCH ×2 (07:38→20:00)
[2021-03-30] MEDS: COLISTIMETHATE 150 MG VIAL RESP TX SCH ×2 (07:45→16:52)
[2021-03-30] MEDS: FERROUS SULFATE 325 MG TABLET PO SCH (08:48)
[2021-03-30] MEDS: FAMOTIDINE 20 MG/2 ML VIAL IV SCH (08:51)
[2021-03-30] MEDS: SODIUM HYPOCHLORITE 0.25% IRRIG 473 ML BOTTLE TOP SCH ×2 (08:53→17:00)
[2021-03-30] MEDS ORDERED: SODIUM POLYSTYRENE SULFATE 15 GM/60 ML BOTTLE PO ONE (09:28)
[2021-03-30 17:45] LABS: Glucose,CSF 64 MG/DL (40-70)
[2021-03-30 18:04] LABS: Lymphocytes,CSF 50 %; Neutrophils,CSF 50 %; Red Blood Cell,CSF 15 C/CUMM; White Blood Cell,CSF 10 C/CUMM
[2021-03-30 18:05] LABS: Appearance,CSF Clear
[2021-03-30] MEDS: MICAFUNGIN 100 MG in SODIUM CHLORIDE 0.9% 100 ML IV SCH (18:30)
[2021-03-30] MEDS: BISOPROLOL 5 MG TABLET PO PRN (20:50)
[2021-03-30] MEDS: INSULIN GLARGINE 100 UNIT/ML SUBCUT SCH (20:51)
[2021-03-31] MEDS: INSULIN REGULAR 100 UNIT/ML SUBCUT SCH ×5 (00:30→23:22)
[2021-03-31] MEDS: IPRATROPIUM 500 MCG/2.5 ML NEB RESP TX SCH ×4 (00:35→18:23)
[2021-03-31] MEDS: COLISTIMETHATE 150 MG VIAL RESP TX SCH ×3 (00:35→14:41)
[2021-03-31] MEDS: AMPICILLIN INJ 1,000 MG in SODIUM CHLORIDE 0.9% 100 ML IV SCH ×4 (01:52→20:42)
[2021-03-31] MEDS: methylPREDNISolone SOD SUC 40 MG/1 ML VIAL IV SCH ×2 (02:22→13:47)
[2021-03-31] MEDS: ACYCLOVIR INJ 500 MG in SODIUM CHLORIDE 0.9% 100 ML IV SCH ×2 (02:22→13:46)
[2021-03-31] MEDS: THEOPHYLLINE 5.33 MG/ML 30 ML/BOTTLE PO SCH ×3 (02:22→18:23)
[2021-03-31] MEDS: MORPHINE 2 MG/1 ML SYRINGE IV PRN ×2 (02:24→22:32)
[2021-03-31 03:59] LABS: ABG Base Excess -2.1 MMOL/L (-2.5-2.5); ABG HCO3 22.7 MMOL/L (20-26); ABG Oxygen Saturation 99.3 % (95-100); ABG PCO2 37.2 MM HG (35-48); ABG PH 7.389 (7.35-7.45); ABG TCO2 19.9 MMOL/L (23-27)
[2021-03-31] MEDS: SODIUM HYPOCHLORITE 0.25% IRRIG 473 ML BOTTLE TOP SCH ×2 (04:45→08:40)
[2021-03-31] MEDS: LEVOTHYROXINE 100 MCG TABLET PO SCH (06:24)
[2021-03-31] MEDS: ACYCLOVIR 5% OINT 15 GM TUBE TOP SCH ×5 (06:24→22:22)
[2021-03-31 06:29] LABS: Basophils % 0.3 % (0.0-0.8); Hematocrit 40.2 VOL% (35.7-47.0); Hemoglobin 12.5 GM/DL (12.0-16.0); Immature Granulocytes % 1.7 %; Immature Granulocytes Absolute 0.18 #; Lymphocytes # 0.2 10*3/uL (1.4-4.0); Lymphocytes % 1.5 % (21.3-54.2); Mean Corpuscular HGB Conc 31.1 GM/DL (32-36); Mean Corpuscular Volume 91.8 FL (87-102); Monocytes % 2.5 % (1.7-12.7); Platelet Count 83 T/CUMM (130-400); Red Blood Count 4.38 MC/CUMM (3.8-5.5); Red Cell Distribution Width 18.2 % (9.3-17.3); White Blood Count 10.8 T/CUMM (4-12)
[2021-03-31 06:39] LABS: Calcium 8.6 MG/DL (8.5-10.1); Osmolality,Calculated 322.6 MOS/KG (273-304); Potassium 5.8 MMOL/L (3.5-5.1)
[2021-03-31 06:50] LABS: Band Neutrophils 2 % (0-10); Hypochromasia 1+; Lymphocytes 3 % (20-55); Microcytosis 1+; Segmented Neutrophils 93 % (50-85); Total Cells Counted 100
[2021-03-31 06:51] LABS: Platelet Estimate Decreased
[2021-03-31] MEDS: RACEPINEPHRINE 0.5 ML NEB RESP TX SCH ×4 (07:15→19:43)
[2021-03-31] MEDS: DORNASE ALFA 2.5 MG/2.5 ML VIAL RESP TX SCH ×2 (07:16→19:43)
[2021-03-31] MEDS: FAMOTIDINE 20 MG/2 ML VIAL IV SCH (08:39)
[2021-03-31] MEDS: FERROUS SULFATE 325 MG TABLET PO SCH (08:39)
[2021-03-31] MEDS ORDERED: MULTIVITAMIN LIQUID (CENTRUM) 60 ML BOTTLE PO SCH (09:00)
[2021-03-31] MEDS ORDERED: SODIUM POLYSTYRENE SULFATE 15 GM/60 ML BOTTLE PO ONE (09:34)
[2021-03-31] MEDS: MICAFUNGIN 100 MG in SODIUM CHLORIDE 0.9% 100 ML IV SCH (18:24)
[2021-03-31] MEDS: INSULIN GLARGINE 100 UNIT/ML SUBCUT SCH (20:41)
[2021-03-31] MEDS: hydrALAZINE 20 MG/1 ML VIAL IV PRN (20:53)
[2021-03-31] MEDS: BISOPROLOL 5 MG TABLET PO PRN (22:32)
[2021-04-01] MEDS: COLISTIMETHATE 150 MG VIAL RESP TX SCH ×3 (00:50→15:34)
[2021-04-01] MEDS: IPRATROPIUM 500 MCG/2.5 ML NEB RESP TX SCH ×4 (00:50→19:41)
[2021-04-01] MEDS: AMPICILLIN INJ 1,000 MG in SODIUM CHLORIDE 0.9% 100 ML IV SCH ×4 (02:18→20:35)
[2021-04-01] MEDS: methylPREDNISolone SOD SUC 40 MG/1 ML VIAL IV SCH ×2 (02:19→16:15)
[2021-04-01] MEDS: ACYCLOVIR INJ 500 MG in SODIUM CHLORIDE 0.9% 100 ML IV SCH ×2 (02:19→16:00)
[2021-04-01] MEDS: THEOPHYLLINE 5.33 MG/ML 30 ML/BOTTLE PO SCH ×3 (02:40→18:17)
[2021-04-01] MEDS: SODIUM HYPOCHLORITE 0.25% IRRIG 473 ML BOTTLE TOP SCH ×2 (03:07→11:23)
[2021-04-01 04:00] LABS: Basophils % 0.2 % (0.0-0.8); Hematocrit 41.4 VOL% (35.7-47.0); Hemoglobin 13.1 GM/DL (12.0-16.0); Immature Granulocytes % 2.4 %; Immature Granulocytes Absolute 0.27 #; Lymphocytes # 0.2 10*3/uL (1.4-4.0); Lymphocytes % 1.8 % (21.3-54.2); Mean Corpuscular HGB Conc 31.6 GM/DL (32-36); Mean Corpuscular Volume 91.2 FL (87-102); Mean Platelet Volume 13.2 FL (9.6-12.0); Monocytes % 3.7 % (1.7-12.7); Neutrophils % 91.9 % (38.7-73.9); Platelet Count 92 T/CUMM (130-400); Red Blood Count 4.54 MC/CUMM (3.8-5.5); Red Cell Distribution Width 18.1 % (9.3-17.3); White Blood Count 11.2 T/CUMM (4-12)
[2021-04-01 04:30] LABS: Calcium 8.6 MG/DL (8.5-10.1); Osmolality,Calculated 324.6 MOS/KG (273-304); Potassium 5.1 MMOL/L (3.5-5.1)
[2021-04-01 04:51] LABS: ABG Base Excess -5.2 MMOL/L (-2.5-2.5); ABG HCO3 20.2 MMOL/L (20-26); ABG Oxygen Saturation 98.4 % (95-100); ABG PCO2 39.1 MM HG (35-48); ABG PH 7.332 (7.35-7.45); ABG PO2 133.8 MM HG (80-95); ABG TCO2 21.4 MMOL/L (23-27); Allen Test Positive; Pt O2 Delivery Device Ventilator
[2021-04-01 04:56] LABS: Band Neutrophils 2 % (0-10); Hypochromasia 1+; Lymphocytes 1 % (20-55); Microcytosis 1+; Segmented Neutrophils 91 % (50-85); Total Cells Counted 100
[2021-04-01 04:57] LABS: Ovalocytes Slight; Platelet Estimate Decreased
[2021-04-01] MEDS: INSULIN REGULAR 100 UNIT/ML SUBCUT SCH ×3 (05:42→18:18)
[2021-04-01] MEDS: ACYCLOVIR 5% OINT 15 GM TUBE TOP SCH ×5 (06:37→21:07)
[2021-04-01] MEDS: LEVOTHYROXINE 100 MCG TABLET PO SCH (06:37)
[2021-04-01] MEDS: RACEPINEPHRINE 0.5 ML NEB RESP TX SCH ×4 (07:15→19:41)
[2021-04-01] MEDS: DORNASE ALFA 2.5 MG/2.5 ML VIAL RESP TX SCH ×2 (07:15→19:41)
[2021-04-01] MEDS: PANTOPRAZOLE 40 MG VIAL IV SCH (11:23)
[2021-04-01] MEDS: FERROUS SULFATE 325 MG TABLET PO SCH (11:23)
[2021-04-01] MEDS: FAMOTIDINE 20 MG/2 ML VIAL IV SCH (12:46)
[2021-04-01] MEDS ORDERED: METOPROLOL TARTRATE 5 MG/5 ML VIAL IV ONE (20:02)
[2021-04-01] MEDS: INSULIN GLARGINE 100 UNIT/ML SUBCUT SCH (21:07)
[2021-04-02] MEDS: IPRATROPIUM 500 MCG/2.5 ML NEB RESP TX SCH ×4 (00:08→18:53)
[2021-04-02] MEDS: INSULIN REGULAR 100 UNIT/ML SUBCUT SCH ×4 (00:30→18:21)
[2021-04-02] MEDS: COLISTIMETHATE 150 MG VIAL RESP TX SCH ×4 (01:23→17:08)
[2021-04-02] MEDS: methylPREDNISolone SOD SUC 40 MG/1 ML VIAL IV SCH ×2 (02:22→14:20)
[2021-04-02] MEDS: AMPICILLIN INJ 1,000 MG in SODIUM CHLORIDE 0.9% 100 ML IV SCH ×4 (02:23→20:50)
[2021-04-02] MEDS: ACYCLOVIR INJ 500 MG in SODIUM CHLORIDE 0.9% 100 ML IV SCH ×2 (02:23→14:49)
[2021-04-02] MEDS: THEOPHYLLINE 5.33 MG/ML 30 ML/BOTTLE PO SCH ×3 (02:23→18:15)
[2021-04-02] MEDS: BISOPROLOL 5 MG TABLET PO PRN (03:18)
[2021-04-02 04:37] LABS: Basophils % 0.3 % (0.0-0.8); Hematocrit 38.3 VOL% (35.7-47.0); Immature Granulocytes % 1.7 %; Immature Granulocytes Absolute 0.19 #; Lymphocytes # 0.2 10*3/uL (1.4-4.0); Lymphocytes % 1.5 % (21.3-54.2); Mean Corpuscular HGB Conc 31.3 GM/DL (32-36); Mean Corpuscular Volume 91.8 FL (87-102); Monocytes % 4.8 % (1.7-12.7); Neutrophils % 91.7 % (38.7-73.9); Red Blood Count 4.17 MC/CUMM (3.8-5.5); Red Cell Distribution Width 18.6 % (9.3-17.3)
[2021-04-02 04:39] LABS: Platelet Count 93 T/CUMM (130-400)
[2021-04-02 04:56] LABS: Bilirubin,Total 0.8 MG/DL (0.20-1.00); Calcium 8.3 MG/DL (8.5-10.1); Osmolality,Calculated 327.3 MOS/KG (273-304); Potassium 4.8 MMOL/L (3.5-5.1); Total Protein 5.4 G/DL (6.4-8.2)
[2021-04-02 05:02] LABS: Band Neutrophils 1 % (0-10); Lymphocytes 2 % (20-55); Metamyelocytes 1 %; Myelocytes 1 %; Segmented Neutrophils 91 % (50-85); Total Cells Counted 100
[2021-04-02 05:09] LABS: Hypochromasia 1+; Platelet Estimate Decreased
[2021-04-02 05:12] LABS: INR 1.2; PT Patient Result 12.9 SECS (10.5-12.0); Partial Thromboplastin Time 32.7 SECS (23.9-33.8)
[2021-04-02 05:22] LABS: ABG Base Excess -4.1 MMOL/L (-2.5-2.5); ABG Oxygen Saturation 99.3 % (95-100); ABG PH 7.329 (7.35-7.45); ABG TCO2 19.3 MMOL/L (23-27); Allen Test Positive; Pt O2 Delivery Device Ventilator
[2021-04-02] MEDS: LEVOTHYROXINE 100 MCG TABLET PO SCH (06:08)
[2021-04-02] MEDS: ACYCLOVIR 5% OINT 15 GM TUBE TOP SCH ×5 (06:08→21:12)
[2021-04-02] MEDS: RACEPINEPHRINE 0.5 ML NEB RESP TX SCH ×4 (06:50→18:53)
[2021-04-02] MEDS: DORNASE ALFA 2.5 MG/2.5 ML VIAL RESP TX SCH ×2 (06:50→18:53)
[2021-04-02] MEDS: SODIUM HYPOCHLORITE 0.25% IRRIG 473 ML BOTTLE TOP SCH (09:09)
[2021-04-02] MEDS: PANTOPRAZOLE 40 MG VIAL IV SCH (09:09)
[2021-04-02] MEDS ORDERED: DIGOXIN 0.5 MG/2 ML AMP IV ONE (12:01)
[2021-04-02 12:30] LABS: M. Tuberculosis PCR Result Negative (Negative); M. Tuberculosis PCR Source CSF
[2021-04-02 12:35] LABS: West Nile Virus Ab, IgG, CSF Negative (Negative); West Nile Virus Ab, IgM, CSF Negative (Negative)
[2021-04-02] MEDS: METOPROLOL TARTRATE 25 MG TABLET PER TUBE SCH ×2 (13:05→20:50)
[2021-04-02] MEDS: FERROUS SULFATE 325 MG TABLET PO SCH (18:18)
[2021-04-02] MEDS: INSULIN GLARGINE 100 UNIT/ML SUBCUT SCH (20:50)
[2021-04-03] MEDS: INSULIN REGULAR 100 UNIT/ML SUBCUT SCH ×5 (00:32→23:45)
[2021-04-03] MEDS: IPRATROPIUM 500 MCG/2.5 ML NEB RESP TX SCH ×4 (00:34→19:47)
[2021-04-03] MEDS: COLISTIMETHATE 150 MG VIAL RESP TX SCH ×3 (00:34→15:49)
[2021-04-03] MEDS: methylPREDNISolone SOD SUC 40 MG/1 ML VIAL IV SCH ×2 (02:20→15:53)
[2021-04-03] MEDS: hydrALAZINE 20 MG/1 ML VIAL IV PRN ×2 (02:22→13:25)
[2021-04-03] MEDS: AMPICILLIN INJ 1,000 MG in SODIUM CHLORIDE 0.9% 100 ML IV SCH ×4 (02:29→20:29)
[2021-04-03] MEDS: THEOPHYLLINE 5.33 MG/ML 30 ML/BOTTLE PO SCH ×3 (02:30→18:42)
[2021-04-03] MEDS: ACYCLOVIR INJ 500 MG in SODIUM CHLORIDE 0.9% 100 ML IV SCH ×2 (02:30→15:54)
[2021-04-03] MEDS: BISOPROLOL 5 MG TABLET PO PRN (03:17)
[2021-04-03 03:33] LABS: ABG Base Excess -3.7 MMOL/L (-2.5-2.5); ABG HCO3 21.4 MMOL/L (20-26); ABG Oxygen Saturation 98.9 % (95-100); ABG PH 7.381 (7.35-7.45); ABG TCO2 18.4 MMOL/L (23-27)
[2021-04-03] MEDS: METOPROLOL TARTRATE 5 MG/5 ML VIAL IV PRN ×4 (03:55→18:41)
[2021-04-03 04:52] LABS: Calcium 8.2 MG/DL (8.5-10.1); Osmolality,Calculated 323.6 MOS/KG (273-304); Potassium 5.2 MMOL/L (3.5-5.1)
[2021-04-03] MEDS: ACYCLOVIR 5% OINT 15 GM TUBE TOP SCH ×5 (06:19→21:16)
[2021-04-03] MEDS: LEVOTHYROXINE 100 MCG TABLET PO SCH (06:19)
[2021-04-03] MEDS: RACEPINEPHRINE 0.5 ML NEB RESP TX SCH ×5 (06:52→19:47)
[2021-04-03] MEDS: DORNASE ALFA 2.5 MG/2.5 ML VIAL RESP TX SCH ×2 (06:52→19:55)
[2021-04-03] MEDS: MORPHINE 2 MG/1 ML SYRINGE IV PRN ×2 (07:44→16:11)
[2021-04-03] MEDS: METOPROLOL TARTRATE 25 MG TABLET PER TUBE SCH ×2 (09:00→20:30)
[2021-04-03] MEDS: FERROUS SULFATE 300 MG/5 ML UDCUP PER TUBE SCH (09:00)
[2021-04-03] MEDS: PANTOPRAZOLE 40 MG VIAL IV SCH (09:04)
[2021-04-03 10:14] LABS: ABG Base Excess -7.6 MMOL/L (-2.5-2.5); ABG HCO3 18.3 MMOL/L (20-26); ABG Oxygen Saturation 98.3 % (95-100); ABG TCO2 21.6 MMOL/L (23-27); Pt O2 Delivery Device Ventilator
[2021-04-03 10:16] LABS: ABG PH 7.136 (7.35-7.45)
[2021-04-03 10:17] LABS: ABG PCO2 69.3 MM HG (35-48)
[2021-04-03] MEDS: DIGOXIN 0.5 MG/2 ML AMP IV SCH (15:49)
[2021-04-03] MEDS: SODIUM HYPOCHLORITE 0.25% IRRIG 473 ML BOTTLE TOP SCH (15:53)
[2021-04-03] MEDS ORDERED: MAGNESIUM SULF RIDER 2 GM/50 ML PREMIX IV ONE (18:57)
[2021-04-03] MEDS: INSULIN GLARGINE 100 UNIT/ML SUBCUT SCH (20:30)
[2021-04-04] MEDS: COLISTIMETHATE 150 MG VIAL RESP TX SCH ×3 (00:38→16:18)
[2021-04-04] MEDS: IPRATROPIUM 500 MCG/2.5 ML NEB RESP TX SCH ×4 (00:38→18:26)
[2021-04-04] MEDS: methylPREDNISolone SOD SUC 40 MG/1 ML VIAL IV SCH ×2 (02:18→17:11)
[2021-04-04] MEDS: THEOPHYLLINE 5.33 MG/ML 30 ML/BOTTLE PO SCH ×3 (02:18→17:16)
[2021-04-04] MEDS: ACYCLOVIR INJ 500 MG in SODIUM CHLORIDE 0.9% 100 ML IV SCH ×2 (02:18→17:12)
[2021-04-04] MEDS: AMPICILLIN INJ 1,000 MG in SODIUM CHLORIDE 0.9% 100 ML IV SCH ×4 (02:18→20:40)
[2021-04-04 04:20] LABS: ABG Base Excess -4.6 MMOL/L (-2.5-2.5); ABG HCO3 20.7 MMOL/L (20-26); ABG Oxygen Saturation 99.3 % (95-100); ABG PCO2 39.2 MM HG (35-48); ABG PH 7.335 (7.35-7.45); ABG TCO2 18.8 MMOL/L (23-27)
[2021-04-04 04:33] LABS: Calcium 8.3 MG/DL (8.5-10.1); Osmolality,Calculated 321.6 MOS/KG (273-304)
[2021-04-04] MEDS: ACYCLOVIR 5% OINT 15 GM TUBE TOP SCH ×5 (06:32→21:23)
[2021-04-04] MEDS: INSULIN REGULAR 100 UNIT/ML SUBCUT SCH ×3 (06:32→19:24)
[2021-04-04] MEDS: LEVOTHYROXINE 100 MCG TABLET PO SCH (06:32)
[2021-04-04] MEDS: hydrALAZINE 20 MG/1 ML VIAL IV PRN (06:33)
[2021-04-04] MEDS: RACEPINEPHRINE 0.5 ML NEB RESP TX SCH ×4 (06:50→18:26)
[2021-04-04] MEDS: DORNASE ALFA 2.5 MG/2.5 ML VIAL RESP TX SCH ×2 (06:50→18:26)
[2021-04-04] MEDS: METOPROLOL TARTRATE 25 MG TABLET PER TUBE SCH (08:43)
[2021-04-04] MEDS: SODIUM HYPOCHLORITE 0.25% IRRIG 473 ML BOTTLE TOP SCH (08:43)
[2021-04-04] MEDS: FERROUS SULFATE 300 MG/5 ML UDCUP PER TUBE SCH (08:43)
[2021-04-04] MEDS: PANTOPRAZOLE 40 MG VIAL IV SCH (08:46)
[2021-04-04] MEDS: DIGOXIN 0.5 MG/2 ML AMP IV SCH (08:53)
[2021-04-04 10:01] LABS: ABG Base Excess -4.3 MMOL/L (-2.5-2.5); ABG HCO3 20.9 MMOL/L (20-26); ABG Oxygen Saturation 99.6 % (95-100); ABG PCO2 39.3 MM HG (35-48); ABG PH 7.338 (7.35-7.45); ABG TCO2 18.9 MMOL/L (23-27); Pt O2 Delivery Device Ventilator
[2021-04-04] MEDS ORDERED: METOPROLOL TARTRATE 25 MG TABLET PO ONE (10:02)
[2021-04-04] MEDS: METOPROLOL TARTRATE 5 MG/5 ML VIAL IV PRN (18:37)
[2021-04-04] MEDS: METOPROLOL TARTRATE 100 MG TABLET PER TUBE SCH (20:40)
[2021-04-04] MEDS: INSULIN GLARGINE 100 UNIT/ML SUBCUT SCH (20:40)
[2021-04-05] MEDS: INSULIN REGULAR 100 UNIT/ML SUBCUT SCH ×4 (00:05→21:29)
[2021-04-05] MEDS: COLISTIMETHATE 150 MG VIAL RESP TX SCH ×3 (00:27→14:45)
[2021-04-05] MEDS: IPRATROPIUM 500 MCG/2.5 ML NEB RESP TX SCH ×4 (00:27→19:12)
[2021-04-05] MEDS: methylPREDNISolone SOD SUC 40 MG/1 ML VIAL IV SCH ×2 (02:04→13:40)
[2021-04-05] MEDS: THEOPHYLLINE 5.33 MG/ML 30 ML/BOTTLE PO SCH ×4 (02:04→17:50)
[2021-04-05] MEDS: ACYCLOVIR INJ 500 MG in SODIUM CHLORIDE 0.9% 100 ML IV SCH ×2 (02:05→13:40)
[2021-04-05 04:24] LABS: ABG Base Excess -5.9 MMOL/L (-2.5-2.5); ABG HCO3 19.7 MMOL/L (20-26); ABG Oxygen Saturation 99.5 % (95-100); ABG PCO2 41.3 MM HG (35-48); ABG TCO2 18.3 MMOL/L (23-27); Allen Test Positive; Pt O2 Delivery Device Ventilator
[2021-04-05] MEDS: ACYCLOVIR 5% OINT 15 GM TUBE TOP SCH ×5 (05:39→21:35)
[2021-04-05 05:59] LABS: Calcium 8.8 MG/DL (8.5-10.1); Osmolality,Calculated 318.8 MOS/KG (273-304)
[2021-04-05 06:07] LABS: Calcium 8.9 MG/DL (8.5-10.1); Osmolality,Calculated 313.1 MOS/KG (273-304); Potassium 4.9 MMOL/L (3.5-5.1)
[2021-04-05] MEDS: LEVOTHYROXINE 100 MCG TABLET PO SCH (06:15)
[2021-04-05] MEDS: hydrALAZINE 20 MG/1 ML VIAL IV PRN (06:22)
[2021-04-05] MEDS: DORNASE ALFA 2.5 MG/2.5 ML VIAL RESP TX SCH ×2 (06:55→19:12)
[2021-04-05] MEDS: RACEPINEPHRINE 0.5 ML NEB RESP TX SCH (06:55)
[2021-04-05] MEDS: PANTOPRAZOLE 40 MG VIAL IV SCH (08:30)
[2021-04-05] MEDS: METOPROLOL TARTRATE 100 MG TABLET PER TUBE SCH ×2 (08:30→21:34)
[2021-04-05] MEDS: DIGOXIN 0.5 MG/2 ML AMP IV SCH (08:30)
[2021-04-05] MEDS: FERROUS SULFATE 300 MG/5 ML UDCUP PER TUBE SCH (08:30)
[2021-04-05] MEDS: SODIUM HYPOCHLORITE 0.25% IRRIG 473 ML BOTTLE TOP SCH (09:30)
[2021-04-05 18:34] VITALS: BP 134/69
[2021-04-05] MEDS: INSULIN GLARGINE 100 UNIT/ML SUBCUT SCH (21:35)
[2021-04-06] MEDS: IPRATROPIUM 500 MCG/2.5 ML NEB RESP TX SCH ×4 (00:09→19:35)
[2021-04-06] MEDS: COLISTIMETHATE 150 MG VIAL RESP TX SCH ×3 (00:09→15:12)
[2021-04-06] MEDS: methylPREDNISolone SOD SUC 40 MG/1 ML VIAL IV SCH ×2 (02:03→14:12)
[2021-04-06] MEDS: THEOPHYLLINE 5.33 MG/ML 30 ML/BOTTLE PO SCH ×3 (02:04→17:51)
[2021-04-06] MEDS: ACYCLOVIR INJ 500 MG in SODIUM CHLORIDE 0.9% 100 ML IV SCH ×2 (02:04→13:35)
[2021-04-06 04:00] LABS: Basophils # 0.1 10*3/uL (0.0-0.2); Basophils % 0.4 % (0.0-0.8); Hematocrit 36.2 VOL% (35.7-47.0); Immature Granulocytes % 7.1 %; Immature Granulocytes Absolute 0.91 #; Lymphocytes # 0.4 10*3/uL (1.4-4.0); Lymphocytes % 3.2 % (21.3-54.2); Mean Corpuscular HGB Conc 30.4 GM/DL (32-36); Mean Corpuscular Volume 93.5 FL (87-102); Monocytes % 4.8 % (1.7-12.7); Neutrophils % 84.5 % (38.7-73.9); Platelet Count 107 T/CUMM (130-400); Red Blood Count 3.87 MC/CUMM (3.8-5.5); Red Cell Distribution Width 17.9 % (9.3-17.3); White Blood Count 12.8 T/CUMM (4-12)
[2021-04-06 04:32] LABS: Band Neutrophils 2 % (0-10); Lymphocytes 3 % (20-55); Platelet Estimate Decreased; Segmented Neutrophils 91 % (50-85); Total Cells Counted 100
[2021-04-06 05:12] LABS: ABG Base Excess -8.2 MMOL/L (-2.5-2.5); ABG HCO3 17.9 MMOL/L (20-26); ABG Oxygen Saturation 98.9 % (95-100); ABG PCO2 56.6 MM HG (35-48); ABG TCO2 19.4 MMOL/L (23-27); Allen Test Positive; Pt O2 Delivery Device Ventilator
[2021-04-06] MEDS: INSULIN REGULAR 100 UNIT/ML SUBCUT SCH ×3 (05:12→20:58)
[2021-04-06] MEDS: ACYCLOVIR 5% OINT 15 GM TUBE TOP SCH ×5 (05:12→21:03)
[2021-04-06 05:13] LABS: ABG PH 7.177 (7.35-7.45)
[2021-04-06] MEDS: LEVOTHYROXINE 100 MCG TABLET PO SCH (06:47)
[2021-04-06] MEDS: DORNASE ALFA 2.5 MG/2.5 ML VIAL RESP TX SCH ×2 (07:05→19:35)
[2021-04-06 09:02] LABS: ABG Base Excess -6.3 MMOL/L (-2.5-2.5); ABG HCO3 19.3 MMOL/L (20-26); ABG Oxygen Saturation 98.3 % (95-100); ABG PCO2 38.7 MM HG (35-48); ABG PH 7.316 (7.35-7.45); ABG PO2 136.5 MM HG (80-95); ABG TCO2 20.5 MMOL/L (23-27); Allen Test Positive; Pt O2 Delivery Device Ventilator
[2021-04-06] MEDS: FERROUS SULFATE 300 MG/5 ML UDCUP PER TUBE SCH (09:53)
[2021-04-06] MEDS: METOPROLOL TARTRATE 100 MG TABLET PER TUBE SCH ×2 (09:53→20:58)
[2021-04-06] MEDS: PANTOPRAZOLE 40 MG VIAL IV SCH (09:53)
[2021-04-06] MEDS: DIGOXIN 0.5 MG/2 ML AMP IV SCH (09:53)
[2021-04-06] MEDS: SODIUM HYPOCHLORITE 0.25% IRRIG 473 ML BOTTLE TOP SCH (12:00)
[2021-04-06] MEDS: LORazepam 2 MG/1 ML VIAL IV PRN (13:36)
[2021-04-06] MEDS: INSULIN GLARGINE 100 UNIT/ML SUBCUT SCH (21:03)
[2021-04-06] MEDS: MORPHINE 2 MG/1 ML SYRINGE IV PRN (22:59)
[2021-04-07] MEDS: COLISTIMETHATE 150 MG VIAL RESP TX SCH ×3 (00:38→08:11)
[2021-04-07] MEDS: IPRATROPIUM 500 MCG/2.5 ML NEB RESP TX SCH ×3 (00:38→08:11)
[2021-04-07] MEDS: methylPREDNISolone SOD SUC 40 MG/1 ML VIAL IV SCH (02:44)
[2021-04-07] MEDS: THEOPHYLLINE 5.33 MG/ML 30 ML/BOTTLE PO SCH (02:44)
[2021-04-07] MEDS: ACYCLOVIR INJ 500 MG in SODIUM CHLORIDE 0.9% 100 ML IV SCH (02:44)
[2021-04-07] MEDS: INSULIN REGULAR 100 UNIT/ML SUBCUT SCH (05:52)
[2021-04-07] MEDS: ACYCLOVIR 5% OINT 15 GM TUBE TOP SCH (06:30)
[2021-04-07] MEDS: LEVOTHYROXINE 100 MCG TABLET PO SCH (06:31)
[2021-04-07] MEDS: DORNASE ALFA 2.5 MG/2.5 ML VIAL RESP TX SCH ×2 (06:54→08:11)
[2021-04-07] MEDS: PANTOPRAZOLE 40 MG VIAL IV SCH (08:11)
[2021-04-07] MEDS: FERROUS SULFATE 300 MG/5 ML UDCUP PER TUBE SCH (08:11)
[2021-04-07] MEDS: DIGOXIN 0.5 MG/2 ML AMP IV SCH (08:11)
[2021-04-07] MEDS: METOPROLOL TARTRATE 100 MG TABLET PER TUBE SCH (08:11)
[2021-04-07] MEDS: MORPHINE 2 MG/1 ML SYRINGE IV PRN (08:27)
[2021-04-07] MEDS: LORazepam 2 MG/1 ML VIAL IV PRN (08:44)
== END 2021-04-07 08:59 | disposition expired | DRG 981 ==
LOC: N.EDINP 17:08 → N.ED 17:08 → N.5E 22:51 → SUATTDRO 02-17 13:10 → N.ICU 02-24 12:31 → N.3E 02-26 14:08 → N.CC 03-10 13:09 → N.ICU 03-19 22:48
PROVIDERS: ADMIT Internal Medicine; ATTEND Family Medicine
PROC: COLONBX (2021-02-22 11:50)